=== PATIENT | female | born 1945 | race Caucasian/White ===

== ENCOUNTER → 2016-05-12 | Outpatient (CLI) | payer OTHER ==
[2016-05-12 12:32] LABS: BASO % 0.5 %; BASO ABS # 0.03 K/uL (0-0.2); COMPLETE YES; EOS % 2.7 %; HEMATOCRIT 43.2 % (37-47); IG% 0.2 %; LYMPH % 19.3 %; LYMPH ABS # 1.28 K/uL (1.2-3.4); MEAN CELL VOLUME 91.9 fL (80-100); MEAN CORPUSCULAR HEMOGLOBIN 31.9 pg (25-34); MEAN CORPUSCULAR HGB CONC 34.7 g/dl (32-36); MEAN PLATELET VOLUME 11.5 fL (7.4-10.4); MONO % 8.1 %; NEUT % 69.2 %; PLATELET COUNT 322 K/uL (130-400); WHITE BLOOD COUNT 6.63 K/uL (4.8-10.8)
[2016-05-12 12:37] LABS: ESTIMATED AVERAGE GLUCOSE 123 mg/dl; HA1C FLAG Normal (Normal)
[2016-05-12 13:33] LABS: ALT/SGPT 25 U/L (12-78); AST/SGOT 17 U/L (15-37); BLOOD UREA NITROGEN 14 mg/dl (7-18); BUN/CREATININE RATIO 20.7 (10-20); CALCIUM 8.8 mg/dl (8.5-10.1); CARBON DIOXIDE 26 mmol/L (21-32); CHLORIDE 105 mmol/L (98-107); CHOLESTEROL 245 mg/dl (0-200); CREATININE 0.67 mg/dl (0.60-1.20); GLUCOSE 95 mg/dl (70-99); POTASSIUM 3.8 mmol/L (3.5-5.1); SODIUM 139 mmol/L (136-145); TRIGLYCERIDES 155 mg/dl (0-150); VERY LOW DENSITY LIPOPROT CALC 31 mg/dl
[2016-05-12 13:35] LABS: ALKALINE PHOSPHATASE 91 U/L (45-117); HDL CHOLESTEROL 61 mg/dl; LDL CHOLESTEROL CALCULATED 153 mg/dl
== END | disposition home or self-care (01) ==
LOC: C.LABBFT 07:48
PROVIDERS: ATTEND Internal Medicine
DX: Z00.00 Encounter for general adult medical examination without abnormal findings (principal); E78.00 Pure hypercholesterolemia, unspecified; R73.01 Impaired fasting glucose; E55.9 Vitamin D deficiency, unspecified

== ENCOUNTER → 2016-05-25 | Outpatient (CLI) | payer OTHER ==
--- NOTE | 2016-05-25 17:09 | DIAGNOSTIC IMAGING REPORT ---
CT OF THE CHEST WITHOUT IV CONTRAST CLINICAL HISTORY: Solitary pulmonary nodule. Smoker. COMPARISON STUDY: 11/26/2011 CT DOSE: 185.74 mGycm TECHNIQUE: CT of the thorax was performed from the thoracic inlet to the lung bases. Images are reviewed in the axial, sagittal, and coronal planes. IV contrast was not administered for this examination. FINDINGS: Thyroid: Imaged portions of the thyroid gland are normal in appearance. Thoracic aorta: The thoracic aorta is normal in course and caliber, noting standard 3 vessel arch anatomy. Heart: The heart is enlarged. There is no pericardial effusion. There are coronary artery calcifications. Lungs and pleural spaces: There is pulmonary emphysema. There is no focal pulmonary consolidation. There is a stable solid 4 mm right lower lobe pulmonary nodule as visualized in image #[id number]. There is a new solid 4 mm left upper lobe pulmonary nodule as visualized in image #[id number].. Mediastinum: Mediastinal lymph nodes remain at the upper limits of normal in size Linette: There is no evidence of pathologic hilar adenopathy given the limitations of a noncontrast study. Axilla: There is no pathologic axillary adenopathy Upper abdomen: There is left adrenal gland thickening Skeletal structures: There are no lytic or blastic osseous lesions. IMPRESSION: 1. Pulmonary emphysema 2. Stable solid 4 mm right lower lobe pulmonary nodule. 3. New solid 4 mm left upper lobe pulmonary nodule as visualized in image #[id number]. Follow-up per Fleischner criteria is recommended Please refer to below summary of Fleischner criteria recommendations for follow-up of incidental CT nodules (Dread Ruiz, Guidelines for management of small pulmonary nodules detected on CT scans: A statement from the Fleischner Society, Radiology 237: [phone].) SOLID NODULES Solitary nodule size: <6 mm * low risk patients: no follow-up needed * high risk patients: optional CT at 12 months Solitary nodule size: 6-8 mm * low risk patients: follow-up at 6-12 months, then consider further follow-up at 18-24 months * high risk patients: initial follow-up CT at 6-12 months and then at 18-24 months if no change Solitary nodule size: >8 mm * either low or high risk patients - consider follow-up CT at 3 months, and/or CT-PET, and/or biopsy Multiple nodules size: <6 mm * low risk patients: no routine follow-up * high risk patients: optional CT at 12 months Multiple nodules size: 6-8 mm * low risk patients: follow-up at 3-6 months, then consider further follow-up at 18-24 months * high risk patients: follow-up at 3-6 months, then at 18-24 months if no change Multiple nodules size: >8 mm * low risk patients: follow-up at 3-6 months, then consider further follow-up at 18-24 months * high risk patients: follow-up at 3-6 months, then at 18-24 months if no change Note: newly detected indeterminate nodule in persons 35 years of age or older. * low risk patients: minimal or absent history of smoking and/or other known risk factors * high risk patients: history of smoking or of other known risk factors (e.g. first degree relative with lung cancer, or exposure to asbestos, radon, uranium) * if a nodule up to 8 mm is partly solid or is ground glass further follow-up is required after 24 months to exclude possible slow growing adenocarcinoma (PILI) SUBSOLID NODULES Solitary pure ground-glass nodule * nodule size <6 mm - no CT follow-up required * nodule size >=6 mm - follow-up CT at 6-12 months, then every 2 years until 5 years Solitary part-solid nodule * nodule size <6 mm - no CT follow-up required * nodule size >=6 mm - follow-up CT at 3-6 months. If unchanged, and solid component remains <6 mm, then annual follow-up for 5 years Multiple subsolid nodules * nodule size <6 mm - follow-up CT at 3-6 months, consider further follow-up at 2 and 4 years if stable * nodule size >=6 mm - follow-up CT at 3-6 months, subsequent management based on the most suspicious nodule(s) Electronically signed by: Zbigniew Thao M.D. 05/25/2016 5:08 PM Dictated Date/Time: 05/25/2016 3:17 PM
== END | disposition home or self-care (01) ==
LOC: C.CTS 14:27
PROVIDERS: ATTEND Internal Medicine
DX: R91.1 Solitary pulmonary nodule (principal); J43.9 Emphysema, unspecified

== ENCOUNTER → 2016-11-17 | Outpatient (CLI) | payer OTHER ==
[2016-11-17 12:47] LABS: ESTIMATED AVERAGE GLUCOSE 120 mg/dl; HA1C FLAG Normal (Normal)
== END | disposition home or self-care (01) ==
LOC: C.LABBFT 08:08
PROVIDERS: ATTEND Internal Medicine
DX: E55.9 Vitamin D deficiency, unspecified (principal); R73.01 Impaired fasting glucose

== ENCOUNTER → 2016-11-26 | Outpatient (CLI) | payer OTHER ==
--- NOTE | 2016-11-26 13:27 | DIAGNOSTIC IMAGING REPORT ---
R ANKLE MIN 3 VIEWS ROUTINE CLINICAL HISTORY: 71 years-old Female presenting with M25.571 Right ankle [id number]. TECHNIQUE: Frontal, mortise, and lateral views of the right ankle were obtained. COMPARISON: Correlation made to plain radiographs of the left ankle from 2016. FINDINGS: Ankle mortise intact. Osteopenia suggested. No acute fracture or malalignment. Diffuse soft tissue swelling is apparent. No significant degenerative change. IMPRESSION: Diffuse soft tissue swelling without evidence of an acute osseous injury. Electronically signed by: Salvador Beard M.D. 11/26/2016 1:25 PM Dictated Date/Time: 11/26/2016 1:18 PM
== END | disposition home or self-care (01) ==
LOC: C.RAD1850 13:03
PROVIDERS: ATTEND Internal Medicine
DX: M25.571 Pain in right ankle and joints of right foot (principal); M25.471 Effusion, right ankle

== ENCOUNTER → 2017-05-19 | Outpatient (CLI) | payer OTHER | END | disposition home or self-care (01) | LOC: C.LABBFT 08:31 | PROVIDERS: ATTEND Internal Medicine | DX: E78.00 Pure hypercholesterolemia, unspecified (principal) ==

== ENCOUNTER → 2017-06-22 | Outpatient (CLI) | payer OTHER | END | disposition home or self-care (01) | LOC: C.MAMM 08:47 | PROVIDERS: ATTEND Internal Medicine | DX: M81.0 Age-related osteoporosis without current pathological fracture (principal) ==

== ENCOUNTER → 2017-07-06 | Outpatient (CLI) | payer OTHER ==
--- NOTE | 2017-07-06 08:09 | DIAGNOSTIC IMAGING REPORT ---
(CHEST) THORAX WITHOUT CLINICAL HISTORY: R91.8 Multiple lung nodules COMPARISON STUDY: 05/25/2016 CT DOSE: TECHNIQUE: CT of the thorax was performed from the thoracic inlet to the lung bases. Images are reviewed in the axial, sagittal, and coronal planes. IV contrast was not administered for this examination. A dose lowering technique was utilized adhering to the principles of ALARA. FINDINGS: Thyroid: Imaged portions of the thyroid gland are normal in appearance. Thoracic aorta: The thoracic aorta is normal in course and caliber, noting standard 3 vessel arch anatomy. Heart: The heart is mildly enlarged. There are coronary artery calcifications present. Lungs and pleural spaces: There are no significant pleural effusions. There is moderately severe pulmonary emphysema. There is subpleural reticulation. There are multiple scattered bilateral solid pulmonary nodules. There is a new solid 7 mm pleural-based nodule within the superior segment the left lower lobe. New/increasing clustered right upper lobe and left upper lobe point nodules are likely inflammatory. Mediastinum: There is a stable precarinal lymph node the upper limits of normal in size measuring 1 cm. Linette: There is no evidence of pathologic hilar adenopathy given the limitations of a noncontrast study Axilla: There is no evidence of pathologic axillary lymphadenopathy Upper abdomen: There is stable left adrenal gland thickening, likely representing adenomatous hyperplasia Skeletal structures: There are no lytic or blastic osseous lesions. IMPRESSION: 1. New solid 7 mm pleural-based nodule within the superior segment of the left lower lobe 2. Increasing clustered upper lobe nodules, likely inflammatory 3. 6 month follow-up is recommended per Fleischner criteria. 4. Emphysema Please refer to below summary of Fleischner criteria recommendations for follow-up of incidental CT nodules (Dread Ruiz, Guidelines for management of small pulmonary nodules detected on CT scans: A statement from the Fleischner Society, Radiology 237: [phone].) SOLID NODULES Solitary nodule size: <6 mm * low risk patients: no follow-up needed * high risk patients: optional CT at 12 months Solitary nodule size: 6-8 mm * low risk patients: follow-up at 6-12 months, then consider further follow-up at 18-24 months * high risk patients: initial follow-up CT at 6-12 months and then at 18-24 months if no change Solitary nodule size: >8 mm * either low or high risk patients - consider follow-up CT at 3 months, and/or CT-PET, and/or biopsy Multiple nodules size: <6 mm * low risk patients: no routine follow-up * high risk patients: optional CT at 12 months Multiple nodules size: 6-8 mm * low risk patients: follow-up at 3-6 months, then consider further follow-up at 18-24 months * high risk patients: follow-up at 3-6 months, then at 18-24 months if no change Multiple nodules size: >8 mm * low risk patients: follow-up at 3-6 months, then consider further follow-up at 18-24 months * high risk patients: follow-up at 3-6 months, then at 18-24 months if no change Note: newly detected indeterminate nodule in persons 35 years of age or older. * low risk patients: minimal or absent history of smoking and/or other known risk factors * high risk patients: history of smoking or of other known risk factors (e.g. first degree relative with lung cancer, or exposure to asbestos, radon, uranium) * if a nodule up to 8 mm is partly solid or is ground glass further follow-up is required after 24 months to exclude possible slow growing adenocarcinoma (PILI) SUBSOLID NODULES Solitary pure ground-glass nodule * nodule size <6 mm - no CT follow-up required * nodule size >=6 mm - follow-up CT at 6-12 months, then every 2 years until 5 years Solitary part-solid nodule * nodule size <6 mm - no CT follow-up required * nodule size >=6 mm - follow-up CT at 3-6 months. If unchanged, and solid component remains <6 mm, then annual follow-up for 5 years Multiple subsolid nodules * nodule size <6 mm - follow-up CT at 3-6 months, consider further follow-up at 2 and 4 years if stable * nodule size >=6 mm - follow-up CT at 3-6 months, subsequent management based on the most suspicious nodule(s) Electronically signed by: Zbigniew Thao M.D. 07/06/2017 8:08 AM Dictated Date/Time: 07/06/2017 7:58 AM
== END | disposition home or self-care (01) ==
LOC: C.CTS 07:38
PROVIDERS: ATTEND Internal Medicine Pulmonary Disease
DX: R91.8 Other nonspecific abnormal finding of lung field (principal); J43.9 Emphysema, unspecified

== ENCOUNTER 2018-07-21 14:33 | Inpatient (IN) ==
--- NOTE | 2018-07-21 15:16 | XRay Report ---
XR chest 1V portable HISTORY: Dyspnea COMPARISON: Chest 02/25/2018. FINDINGS: Diffuse interstitial thickening with small bilateral pleural effusions and mild cardiomegal y. This is consistent with moderate pulmonary edema. Bibasilar densities favor atelectasis from the p leural effusions. No pneumothorax. IMPRESSION: Moderate pulmonary edema with small bilateral pleural effusions. Electronically signed by: Aurelio Coughlin M.D. 07/21/2018 3:14 PM
[2018-07-21] MEDS ORDERED: ALBUT/IPRATROP 3MG/0.5MG NEB 3 ML VIAL NEB STA (15:27)
[2018-07-21] MEDS ORDERED: methylPREDNISolone 125 MG/2 ML VIAL IV STA (15:27)
[2018-07-21 15:32] LABS: Basophils # (auto) 0.02 K/uL (0-0.2); Basophils % (auto) 0.2 %; Eosinophils % (auto) 1.2 %; Hematocrit (blood only) 36.1 % (37-47); Hemoglobin 12.6 g/dL (12.0-16.0); Immature Granulocytes # (auto) 0.02 K/uL (0.00-0.02); Immature Granulocytes % (auto) 0.2 %; Lymphocytes # (auto) 1.19 K/uL (1.2-3.4); Lymphocytes % (auto) 14.4 %; Mean Corpuscular Hgb Conc 34.9 g/dL (32-36); Mean Corpuscular Volume 90.3 fL (80-100); Mean Platelet Volume 10.3 fL (7.4-10.4); Monocytes # (auto) 0.64 K/uL (0.11-0.59); Monocytes % (auto) 7.7 %; Neutrophils # (auto) 6.29 K/uL (1.4-6.5); Neutrophils % (auto) 76.3 %; Platelet Count 285 K/uL (130-400); RDW Standard Deviation 49.3 fL (36.4-46.3); White Blood Count 8.26 K/uL (4.8-10.8)
[2018-07-21] MEDS ORDERED: FUROSEMIDE 40 MG/4 ML VIAL IV STA (15:34)
[2018-07-21] MEDS ORDERED: NITROGLYCERIN 2% OINTMENT 30GM TUBE EXT STA (15:34)
[2018-07-21 15:46] LABS: INR 1.1 (0.9-1.1); Partial Thromboplastin Time 25.8 Seconds (21.0-31.0); Prothrombin Time 11.1 Seconds (9.0-12.0)
[2018-07-21 15:58] LABS: Albumin Level 3.4 gm/dl (3.4-5.0); BUN Creatinine Ratio 12.8 (10-20); Est GFR (African American) 103.7; Est GFR (Non-African American) 89.5; Magnesium 2.2 mg/dl (1.8-2.4); Potassium 3.8 mmol/L (3.5-5.1)
[2018-07-21 16:14] LABS: Albumin Globulin Ratio 0.9 (0.9-2); Bilirubin,Total 0.3 mg/dl (0.2-1); Globulin 3.7 gm/dl (2.5-4.0); Total Protein 7.1 gm/dl (6.4-8.2); Troponin I 0.094 ng/ml (0-0.045)
--- NOTE | 2018-07-21 16:23 | History & Physical Report ---
Date of Service July 21, 2018 Assessment & Plan (1) Acute diastolic CHF (congestive heart failure): Telemetry. Administer intravenous Lasix. Monitor intake and output. Obtain cardiac echo Present on Admission?: Yes (2) Angina pectoris: Telemetry. Serial troponins. Cardiology consultation. Cardiac echo. Continue aspirin therapy along with topical nitrates and add metoprolol therapy Present on Admission?: Yes (3) Acute respiratory failure with hypoxia: Supplemental oxygen to maintain saturation greater than 90%. Wean off as tolerated (4) Abnormal EKG: Serial EKGs ordered. Await cardiac echo results Present on Admission?: Yes History of Present Illness Chief Complaint: Shortness of breath, chest and neck discomfort Primary Care Provider: Hang Gramajo MD 73-year-old female with no previous 3. She does smoke however. For the past day or 2 she has noticed worsening shortness of breath with exertion and orthopnea. She denies weight gain however. She noticed neck discomfort and chest discomfort at rest and with exertion. Chest x-ray consistent with CHF. Oxygen saturation 86% on room air consistent with acute hypoxic respiratory failure. She does not typically use oxygen at home. Currently she is pain-free after receiving intravenous Lasix in the ED and having topical nitrates applied. EKG reveals normal sinus rhythm with lateral T wave changes. She will be admitted for further evaluation and treatment and cardiology consultation. Allergies Allergy/AdvReac Type Severity Reaction Status Date / Time No Known Allergies Allergy Unverified 07/21/18 15:27 Home Medications Home Medications Medication Instructions Recorded Confirmed Type aspirin [Aspirin Low Dose] 81 mg PO HS 07/21/18 07/21/18 History calcium carbonate [Calcium 500] 500 mg PO QAM 07/21/18 07/21/18 History cholecalciferol (vitamin D3) 4,000 unit PO BID 07/21/18 07/21/18 History [Vitamin D3] loratadine-pseudoephedrine 1 tab PO DAILY PRN 07/21/18 07/21/18 History [Claritin-D 24 Hour] rosuvastatin 5 mg PO HS 07/21/18 07/21/18 History vitamins A,C,I-ukca-nuwoyg 1 tab PO BID 07/21/18 07/21/18 History [PreserVision AREDS] Past Med/Surg History Medical History COPD (chronic obstructive pulmonary disease) (Chronic) Abnormal EKG (Acute) Acute respiratory failure with hypoxia (Acute) Angina pectoris (Acute) Acute diastolic CHF (congestive heart failure) (Acute) Emphysema of lung Social History Preferred Language: Icelandic Feels Safe at Home: Yes Smoking Status: Current every day smoker Cigarettes Per Day: 10 Review of Systems Review of Systems: All systems reviewed & are unremarkable except as noted in HPI & below Cardiovascular: + chest pain, + chest pain at rest, + chest pain with activity, + dyspnea, + dyspnea at rest, + dyspnea on exertion and + orthopnea Physical Exam Constitutional: WD/WN, vitals as above Eyes: PERRL, conjunctivae normal, anicteric sclerae ENMT: external ear and nose normal, oropharynx normal Neck: trachea midline, no thyromegaly Respiratory: Bibasilar inspiratory rales. End expiratory wheezes. No rhonchi. No dullness to percussion Cardiovascular: Rate/Rhythm: regular rate and regular rhythm Heart Sounds: normal S1, normal S2 and + murmur Gastrointestinal (Abdomen): normal bowel sounds, soft, nontender, no hepatosplenomegaly Musculoskeletal: no cyanosis or clubbing, extremities motor strength 5/5 Minimal bilateral lower extremity pitting edema Skin: no rashes, warm and dry Neurologic: CN's II-XI intact bilaterally and moves all extremities; no focal motor deficits Results & Data Vital Signs (Past 12 Hours) Vital Signs Temp Pulse Pulse Resp BP Pulse Ox 07/21/18 15:45 95 H 26 H 93 07/21/18 14:56 96 H 93 07/21/18 14:54 86 L 07/21/18 14:38 36.7 C 104 H 20 138/81 86 L Laboratory Results 07/21/18 15:17 07/21/18 15:17
--- NOTE | 2018-07-21 16:34 | Emergency Department Note ---
Entered by Elza Lopez acting as a scribe for ED Provider Note CHIEF COMPLAINT: Shortness of breath HISTORY OF PRESENT ILLNESS: The patient is a 73 year old female who presents to the Emergency Room with complaints of constant SOB that began yesterday. She notes that sitting up helps relieve her symptoms. The patient reports that exertion worsens the symptoms. She complains of "heavy, achy pressure" in her chest, but she denies any chest pain. The patient complains of a cough and feeling bloated. Pt denies LOC, headache, fevers, chills, diaphoresis, visual changes, neck pain, breathing difficulties, nausea, vomiting, abdominal pain, back pain, melena, hematochezia, urinary symptoms, numbness, weakness, lymphadenopathy, rash, or other complaints. She notes a history of emphysema, but she denies having an at-home nebulizer. REVIEW OF SYSTEMS: See HPI for pertinent positives and negatives. A total of ten systems were reviewed and were otherwise negative. PMHx/PSHx: Emphysema SOCIAL HISTORY: Patient lives at home. PHYSICAL EXAM: GENERAL: Awake, alert, dyspneic-appearing, in no distress HENT: Normocephalic, atraumatic. Oropharynx unremarkable. EYES: PERRL. Normal conjunctiva. Sclera non-icteric. NECK: Inspection normal. Non-tender. Supple. No nuchal rigidity. FROM. No masses. RESPIRATORY: Clear to auscultation. No wheezes. No rales. Increased work of breathing. Diminished breath sounds. CARDIAC: Normal rate. Normal rhythm. No murmurs. No rubs. Extremities warm and well perfused. Pulses equal. No JVD. GI: Soft, non-distended. No tenderness to palpation. No rebound or guarding. No masses. RECTAL: Deferred. MUSCULOSKELETAL: Atraumatic. Chest examination reveals no tenderness. The back is symmetrical on inspection without obvious abnormality. There is no CVA tenderness to palpation. No joint edema. LOWER EXTREMITIES: Calves are equal size bilaterally and non-tender. No edema. No discoloration. NEURO: Normal sensorium. No sensory or motor deficits noted. SKIN: No rash or jaundice noted. EMERGENCY DEPARTMENT COURSE: 1500: Past medical records reviewed. The patient was evaluated in room A12A, and a complete history and physical examination were performed. 1534: I reevaluated the patient. 1542: I spoke with Dr. Williamson, [facility] hospitalist, about the patient's case. He will further evaluate the patient. MEDICAL DECISION MAKING: Prior records/ancillary studies reviewed. Previous ECG reviewed and she was noted to have no T wave inversions laterally as noted today. Triage Nursing notes reviewed and agree them. Additional history obtained from the family. The patient's history was concerning for shortness of breath. Differential diagnosis: Etiologies such as pneumonia, COPD, reactive airway disease, CHF, cardiac ischemia, pulmonary embolism, pneumothorax, musculoskeletal, infections, gastrointestinal, as well as others were entertained. Physical examination: As above. Increased work of breathing. ER treatment provided: Submental oxygen Cardiac monitoring IV Solu-Medrol DuoNeb On reassessment the patient felt better. IV Lasix Nitropaste Oral aspirin Diagnostic interpretation by me: The electrocardiogram was positive for ischemic change. No ST elevation. The labs revealed the patient has an unremarkable CBC. Chemistry panel was negative. Troponin elevated. BNP significant elevated concerning for CHF. Imaging studies: Chest x-ray consistent with CHF. The patient had hypoxia. She corrected with supplemental oxygen. She has an elevated troponin. She has findings consistent with CHF. She also has a history of COPD/emphysema. Consultation: A consultation was placed with the hospitalist. The case was discussed and [facility] were reviewed. The patient was evaluated in the ER for further treatment. IMPRESSION: Shortness of breath, hypoxia, EKG changes, elevated troponin PLAN: Admitted CRITICAL CARE: I have personally spent greater than 30 minutes of critical care time in the direct management of this patient. This includes bedside care, interpretation of diagnostic studies, and testing, discussion with consultants, patient, and family members, and other required patient management activities. This 30 minutes is in excess of all separately billable procedures. The scribe's documentation has been prepared under my direction and personally reviewed by me in its entirety. I confirm that the note above accurately reflects all work, treatment, procedures, and medical decision making performed by me. Impression & Plan SOB (shortness of breath), Hypoxia, Acute electrocardiogram changes, Elevated troponin Past Med/Surg History Medical History COPD (chronic obstructive pulmonary disease) (Chronic) Abnormal EKG (Acute) Acute respiratory failure with hypoxia (Acute) Angina pectoris (Acute) Acute diastolic CHF (congestive heart failure) (Acute) Emphysema of lung Social History Preferred Language: Sami Feels Safe at Home: Yes Smoking Status: Current every day smoker Cigarettes Per Day: 10 Results & Data Vital Signs Vital Signs - 24 hr 07/21/18 14:38 07/21/18 14:54 07/21/18 14:56 Temperature 36.7 C Temperature Source Oral Sepsis Recent Fever Within 48 Hours No Sepsis New/Unexplained Change in Mental Status No Sepsis Action Taken by Nursing No Action Required Pulse Rate 104 H 96 H Pulse Rate [Left Finger] Respiratory Rate 20 Respiratory Effort / Characteristics Non-Labored Non-Labored Respiratory Depth Normal Normal Respiratory Pattern Regular Regular Blood Pressure 138/81 Blood Pressure Mean 100 Blood Pressure Position Sitting Pulse Oximetry 86 L 86 L 93 Oxygen Delivery Method Room Air Room Air Nasal Cannula Oxygen Flow Rate 4 07/21/18 15:45 Temperature Temperature Source Sepsis Recent Fever Within 48 Hours Sepsis New/Unexplained Change in Mental Status Sepsis Action Taken by Nursing Pulse Rate Pulse Rate [Left Finger] 95 H Respiratory Rate 26 H Respiratory Effort / Characteristics Non-Labored Respiratory Depth Respiratory Pattern Blood Pressure Blood Pressure Mean Blood Pressure Position Pulse Oximetry 93 Oxygen Delivery Method Nasal Cannula Oxygen Flow Rate 4 Home Medications Current Medication List: was personally reviewed by me Laboratory Data Attestation: I reviewed the patient's lab results. Result diagrams: 07/21/18 15:17 07/21/18 15:17 Lab Results 07/21/18 07/21/18 07/21/18 Range/Units 15:17 15:17 15:17 WBC 8.26 (4.8-10.8) K/uL RBC 4.00 L (4.2-5.4) M/uL Hgb 12.6 (12.0-16.0) g/dL Hct 36.1 L (37-47) % MCV 90.3 (80-100) fL MCH 31.5 (25-34) pg MCHC 34.9 (32-36) g/dL RDW Std Deviation 49.3 H (36.4-46.3) fL RDW Coeff of Ani 15.0 H (11.5-14.5) % Plt Count 285 (130-400) K/uL MPV 10.3 (7.4-10.4) fL Immature Gran % (Auto) 0.2 % Neut % (Auto) 76.3 % Lymph % (Auto) 14.4 % Whitfield % (Auto) 7.7 % Eos % (Auto) 1.2 % Baso % (Auto) 0.2 % Immature Gran # (Auto) 0.02 (0.00-0.02) K/uL Neut # (Auto) 6.29 (1.4-6.5) K/uL Lymph # (Auto) 1.19 L (1.2-3.4) K/uL Whitfield # (Auto) 0.64 H (0.11-0.59) K/uL Eos # (Auto) 0.10 (0-0.5) K/uL Baso # (Auto) 0.02 (0-0.2) K/uL PT 11.1 (9.0-12.0) Seconds INR 1.1 (0.9-1.1) APTT 25.8 (21.0-31.0) Seconds PTT Ratio 1.0 Sodium 137 (136-145) mmol/L Potassium 3.8 (3.5-5.1) mmol/L Chloride 105 (98-107) mmol/L Carbon Dioxide 24 (21-32) mmol/L Anion Gap 8.0 (3-11) BUN 8 (7-18) mg/dl Creatinine 0.62 (0.6-1.2) mg/dl Est Cr Clr Drug Dosing 71.0 ml/min Est GFR ( Amer) 103.7 Est GFR (Non-Af Amer) 89.5 BUN/Creatinine Ratio 12.8 (10-20) Glucose 105 H (70-99) mg/dl Calcium 9.0 (8.5-10.1) mg/dl Magnesium 2.2 (1.8-2.4) mg/dl Total Bilirubin 0.3 (0.2-1) mg/dl AST 42 H (15-37) U/L ALT 68 (12-78) U/L Alkaline Phosphatase 102 (45-117) U/L Troponin I 0.094 H* (0-0.045) ng/ml NT-Pro-B Natriuret Pep 31863 H (0-900) pg/ml Total Protein 7.1 (6.4-8.2) gm/dl Albumin 3.4 (3.4-5.0) gm/dl Globulin 3.7 (2.5-4.0) gm/dl Albumin/Globulin Ratio 0.9 (0.9-2) Administered Medications Discontinued Medications Albuterol (Duoneb) 3 ml NEB NOW STA Stop: 07/21/18 15:28 Last Admin: 07/21/18 15:44 Dose: 3 ml Documented by: [id number] Furosemide (Lasix) 20 mg IV NOW STA Stop: 07/21/18 15:35 Last Admin: 07/21/18 15:39 Dose: 20 mg Documented by: [id number] Methylprednisolone (Solumedrol) 125 mg IV NOW STA Stop: 07/21/18 15:28 Last Admin: 07/21/18 15:32 Dose: 125 mg Documented by: [id number] Nitroglycerin (Nitro-Bid 2%) 0.5 inch EXT NOW STA Stop: 07/21/18 15:35 Last Admin: 07/21/18 15:39 Dose: 0.5 inch Documented by: [id number] Imaging Data Radiologist's Impression: Radiology results as stated below per my review and the radiologist's interpretation: XR chest 1V portable HISTORY: Dyspnea COMPARISON: Chest 02/25/2018. FINDINGS: Diffuse interstitial thickening with small bilateral pleural effusions and mild cardiomegaly. This is consistent with moderate pulmonary edema. Bibasilar densities favor atelectasis from the pleural effusions. No pneumothorax. IMPRESSION: Moderate pulmonary edema with small bilateral pleural effusions. Electronically signed by: Aurelio Coughlin M.D. 07/21/2018 3:14 PM ECG Data Attestation: I personally reviewed and interpreted this ECG as follows: Indication: SOB/dyspnea Rate (beats per minute): 103 Rhythm: sinus tachycardia Findings: + other (left atrial enlargement) and + T-wave inversion (Lateral); no PVC and no ST elevation Comparison ECG Date: from (11/26/2011) Change: the following changes noted (lateral changes are new ) Blood Pressure Blood Pressure Findings: Normal blood pressure Blood Pressure Disposition: did not require urgent referral Discharge Plan Visit Data Chief Complaint: Shortness of Breath/Dyspnea Stated Complaint: SOB ED Provider: Nadir Causey Discharge Problem: SOB (shortness of breath), Hypoxia, Acute electrocardiogram changes, Elevated troponin Patient Disposition: Being Evaluated by Hospitalist Forms Stand Alone Forms: My [facility] [employer] Prescriptions Prescriptions: No Action aspirin [Aspirin Low Dose] 81 mg Tablet,Delayed Release (Dr/Ec) 81 mg PO HS RF: 0 loratadine-pseudoephedrine [Claritin-D 24 Hour] 10-240 mg Tablet Extended Release 24 Hr 1 tab PO DAILY PRN (Reason: Allergy Symptoms) RF: 0 calcium carbonate [Calcium 500] 500 mg calcium (1,250 mg) Tablet 500 mg PO QAM RF: 0 rosuvastatin 5 mg tablet 5 mg PO HS RF: 0 cholecalciferol (vitamin D3) [Vitamin D3] 2,000 unit Tablet 4,000 unit PO BID RF: 0 PreserVision AREDS [id number] [id number] Tablet 1 tab PO BID RF: 0 Referrals Referrals: Tae Gramajo MD [Primary Care Provider] - The scribe's documentation has been prepared under my direction and personally reviewed by me in its entirety. I confirm that the note above accurately reflects all work, treatment, procedures, and medical decision making performed by me.
[2018-07-21] MEDS ORDERED: ACETAMINOPHEN 325 MG TAB PO PRN (17:16)
[2018-07-21] MEDS ORDERED: ONDANSETRON INJ 2 MG/ML 2 ML VIAL IV PRN (17:16)
[2018-07-21] MEDS ORDERED: ALUMINUM/MAGNESIUM SUSP 30 ML UDC PO PRN (17:16)
[2018-07-21] MEDS ORDERED: NITROGLYCERIN SL 0.4 MG/TAB TAB SL PRN (17:16)
[2018-07-21] MEDS ORDERED: METOPROLOL SUCC 50MG EXT REL TAB PO ONE (18:00)
[2018-07-21] MEDS: FUROSEMIDE 40 MG in SYRINGE 0 ML IV SCH (18:40)
[2018-07-21] MEDS: NITROGLYCERIN 2% OINTMENT 30GM TUBE EXT SCH (18:49)
[2018-07-21] MEDS: ASPIRIN 81 MG ECTAB PO SCH (19:55)
[2018-07-21] MEDS: POTASSIUM CHLORIDE 10 MEQ TABCR PO SCH (19:55)
[2018-07-21] MEDS: CHOLECALCIFEROL 1,000 UNITS TAB PO SCH (19:57)
[2018-07-21] MEDS: ENOXAPARIN INJ 40 MG/0.4 ML SYR SQ SCH (19:57)
[2018-07-21] MEDS: ROSUVASTATIN CALCIUM 5 MG TAB PO SCH (19:58)
[2018-07-21] MEDS: CEROVITE ADV FORMULA TAB PO SCH (19:58)
[2018-07-21 21:30] LABS: Appearance Urine Clear (Clear); Bilirubin Urine Negative (Negative); Blood Urine Negative (Negative); Color Urine Yellow; Glucose Urine UA Negative (Negative); Ketones Urine Negative (Negative); Leukocyte Esterase Urine Negative (Negative); Nitrite Urine Negative (Negative); Protein Urine Negative (Negative); Specific Gravity Urine 1.008 (1.000-1.030); Urobilinogen Urine Negative (Negative)
[2018-07-22] MEDS: NITROGLYCERIN 2% OINTMENT 30GM TUBE EXT SCH ×3 (00:56→12:00)
[2018-07-22] MEDS: FUROSEMIDE 40 MG in SYRINGE 0 ML IV SCH ×2 (06:11→18:11)
[2018-07-22] MEDS: CALCIUM CARBONATE 1250MG TAB PO SCH (07:26)
[2018-07-22] MEDS: CEROVITE ADV FORMULA TAB PO SCH ×2 (07:27→20:08)
[2018-07-22] MEDS: POTASSIUM CHLORIDE 10 MEQ TABCR PO SCH ×2 (07:27→20:07)
[2018-07-22] MEDS: CHOLECALCIFEROL 1,000 UNITS TAB PO SCH ×2 (07:28→20:08)
--- NOTE | 2018-07-22 08:03 | Hospitalist Progress Note ---
Date of Service July 22, 2018 Assessment & Plan (1) Acute diastolic CHF (congestive heart failure): good urine output and weight reduction after intravenous Lasix. reduced systolic function on echo, heart rate slower but lateral T wave inversions, did have some pause, and makes consideration of B robert at increased risk (2) Angina pectoris: Serial troponins are only very mildly elevated, Cardiology consultation. recommends left heart cath for risk stratification, aspirin,therapy, heart rate slower will consider just using Harsh i (3) Acute respiratory failure with hypoxia: secondary to pulmonary edema from HFrEF, Supplemental oxygen to maintain saturation greater than 90%. (4) Abnormal EKG: Serial EKGs ordered. Await cardiac echo results Subjective Patient is in no further chest pain although she is story of exertional shortness of breath. She was given the results of echocardiogram showing reduced systolic function by Dr. Grossman with recommendations for cardiac catheterization however the patient is not sure she wants proceed with this. She is agreement to stay in the hospital for an additional day for diuresis. She did have a pause in the evening on her monitor and this is making us be slightly concerned of initiating beta-robert therapy at the least she will be on afterload reduction of some kind Review of Systems Review of Systems: ROS: well nourished well developed. Since being in the hospital she has had No double vision blurry vision No problems with speech or swallowing No palpitations, chest pain or pressure No Wheezing or breathing issues, except for minor dyspnea on exertion No abdominal pain nausea vomiting diarrhea changes in appetite or weight No burning urine urine frequency or changes in color No focal joint pain or muscle pain No skin rashes or oral lesions No unusual bruising or bleeding No focused back pain or numbness or loss of strength No changes in memory or confusion Physical Exam Physical Exam: The patient appeared well nourished and normally developed. Vital signs as documented. Head exam is unremarkable. normocephalic, atraumatic Neck is without jugular venous distension, thyromegaly, or lymphademopathy Lungs are diminished at the bases with rales and dullness consistent with her bibasilar pleural effusions Cardiac exam reveals Rhythm is regular. First and second heart sounds normal. Abdominal exam reveals normal bowel sounds, no masses, no organomegaly Extremities are nonedematous and both pedal pulses are present Neurologic exam is A&Ox3, no focal deficits, strength is equal bilateral Psychologically seems neither anxious or depressed Skin is warm Dry without bruises or lesions Results & Data Vital Signs (Past 12 Hours) Vital Signs Temp Pulse Pulse Resp BP Pulse Ox 07/22/18 07:53 36.5 C 68 18 111/62 94 07/22/18 06:10 118/66 07/22/18 04:19 36.6 C 60 19 98/52 L 90 07/21/18 23:35 70 07/21/18 23:16 36.7 C 72 18 120/61 93
--- NOTE | 2018-07-22 09:36 | Cardiology Consultation ---
Date of Consultation July 22, 2018 Assessment & Plan (1) Acute systolic CHF (congestive heart failure): Patient presented with worsening shortness of breath, orthopnea, and abdominal bloating over the previous 2 days. CXR shows moderate pulmonary edema with small bilateral pleural effusions. Pro-BNP is elevated >10,000. Echocardiogram preliminarily shows dilated LV with reduced LV systolic function. She is being diuresed with IV Lasix with good urine output thus far and improvement in her breathing. She continues to appear hypervolemic on examination and would therefore recommend continued diuresis with IV Lasix 40 mg BID. Monitor I's&O's closely as well as daily weights. Monitor PRP closely as well. Would recommend discharging her on PO Lasix daily once euvolemic. The importance of following a low sodium diet, <2,000 mg daily, was reviewed with patient today. The importance of daily weights was also reviewed. (2) Cardiomyopathy: The etiology of her LV dysfunction is unclear. She has been noting exertional chest discomfort and shortness of breath over the last several weeks. Troponin has also been mildly elevated. ECG shows some ST-T wave abnormality, which could be ischemic changes vs. changes due to LVH. Given her symptoms, trop onin elevation, and possible ischemic changes on ECG, further evaluation with a cardiac catheterization is recommended. Discussed keeping her over the weekend and performing the cath on Wednesday, however, patient does not feel as though she wants to be admitted all weekend. The study can therefore be arranged next week as an outpatient if she ends up being discharged sooner than Wednesday. Recommend adding an NKECHI inhibitor to her medication regimen given her LV dysfunction. Would also advocate for adding a beta robert, but given her pause overnight, will hold off on beta robert therapy at this time. (3) Elevated troponin: Troponin has been mildly elevated. Recommend none-urgent cardiac catheterization given her reduced LV systolic function and exertional chest pain/shortness of breath symptoms. (4) Mitral regurgitation: Echo preliminarily shows moderate MR. She was hypervolemic at the time of the study and would recommend reevaluation with repeat echo in the future once euvolemic. (5) Bradycardia: She was noted to have a 4 second pause overnight around midnight. Recommend continuing to monitor on telemetry. Will also hold off on initiating beta robert therapy at this time given the pause. Patient seen and discussed with Dr. Grossman, and the plan was made in collaboration with him. History of Present Illness Reason for Consultation: New onset CHF, angina pectoris Requesting Physician: Dr. Williamson History of Present Illness Mrs. Moses is a 73-year-old female with a history of dyslipidemia, prediabetes, tobacco abuse, and COPD who presented to the ED yesterday with complaints of worsening shortness of breath. The patient states that in March, she was diagnosed and treated for the flu. She has noted a persistent cough since that time which is productive of white sputum. She has also noted some exertional shortness of breath, which worsened on Wednesday. She noted the shortness of breath particularly when using her upper body and with walking longer distances. On Wednesday evening, she noted orthopnea lying down and had to prop herself up to sleep. She has not noted any lower extremity edema, but did note some abdominal bloating. She reports a gradual weight gain over the last several months. She denies any excessive sodium intake in her diet. Patient also reports that since March, she has noted an aching/pressure in her chest in association with exertion. The discomfort also occurs when using her upper body as well as when walking up hill and is associated with shortness of breath. She can note an associated tightness in her neck region and on 1-2 occasions she also had an aching discomfort in her left arm. The discomfort usually resolves within 10-15 minutes of rest. She has been taking baby aspirin as needed for the discomfort as well. She states that she can feel her heart racing in association with shortness of breath, but she denies palpitations otherwise. She denies lightheadedness, syncope, or presyncope. She denies abnormal bleeding such as melena, hematochezia, or hematuria. She denies cerebrovascular symptoms. As noted in HPI. All other ROS are reviewed and otherwise negative at this time. Past medical history: 1. Prediabetes 2. Dyslipidemia 3. COPD 4. Pulmonary nodules 5. Osteoporosis 6. Vitamin D deficiency 7. GERD 8. Hysterectomy and bilateral salpingo-oophorectomy Family history: No known premature CAD. She states that she did not know her father. Social history: She is with 3 children and numerous grandchildren. She has been smoking since the age of 11 at up to 1 ppd. She currently smokes about 10 cigarettes daily. She notes occasional alcohol use. Allergies Allergy/AdvReac Type Severity Reaction Status Date / Time No Known Allergies Allergy Unverified 07/21/18 15:27 Home Medications Home Medications Medication Instructions Recorded Confirmed Type aspirin [Aspirin Low Dose] 81 mg PO HS 07/21/18 07/21/18 History calcium carbonate [Calcium 500] 500 mg PO QAM 07/21/18 07/21/18 History cholecalciferol (vitamin D3) 4,000 unit PO BID 07/21/18 07/21/18 History [Vitamin D3] loratadine-pseudoephedrine 1 tab PO DAILY PRN 07/21/18 07/21/18 History [Claritin-D 24 Hour] rosuvastatin 5 mg PO HS 07/21/18 07/21/18 History vitamins A,C,B-[id number]-[id number] 1 tab PO BID 07/21/18 07/21/18 History [PreserVision AREDS] Patient History Medical History COPD (chronic obstructive pulmonary disease) (Chronic) Abnormal EKG (Acute) Acute respiratory failure with hypoxia (Acute) Angina pectoris (Acute) Acute diastolic CHF (congestive heart failure) (Acute) Emphysema of lung Social History Preferred Language: Uzbek Communication Ability: Effective Beliefs That Will Affect Care: None Current Living Situation: Spouse Other Information That Helps Us Care for You: No Feels Safe at Home: Yes Safety Concerns: Feels Safe At This Time Smoking Status: Current every day smoker Tobacco Type: cigarettes Cigarettes Per Day: 10 Do You Dip or Chew Tobacco: No Second Hand Exposure: No Tobacco Cessation Education Requested by Patient: No Hx Alcohol Use: Yes Alcohol type: beer Hx Substance Use: No Physical Exam Physical Exam: Constitutional: Alert, oriented, in no acute distress HEENT: Head is atraumatic and normocephalic. EOMs intact. Sclera anicteric. Face is symmetric. No perioral cyanosis. Mucous membranes moist. Neck: Supple, mildly elevated JVP just above the clavicle at 90 degrees Pulmonary: Normal respiratory effort, decreased breath sounds throughout with some faint crackles in the bases Cardiac: Regular rate and rhythm, normal S1 and S2, no gallops, no rubs, no obvious murmurs Extremities: No clubbing, cyanosis, or edema. Pulses intact Abdomen: Normal bowel sounds, soft, non-tender, no abdominal mass palpated Skin: Normal skin color, turgor, and pigmentation, no rash, no skin lesions Neurological: Oriented to person, place, and time Results & Data Vital Signs (Past 12 Hours) Vital Signs Temp Pulse Pulse Resp BP Pulse Ox Pulse Ox 07/22/18 08:17 66 07/22/18 08:11 94 07/22/18 07:53 36.5 C 68 18 111/62 94 07/22/18 06:10 118/66 07/22/18 04:19 36.6 C 60 19 98/52 L 90 07/21/18 23:35 70 07/21/18 23:16 36.7 C 72 18 120/61 93 Laboratory Results Laboratory Results WBC 8.26 K/uL (4.8-10.8) 07/21/18 15:17 RBC 4.00 M/uL (4.2-5.4) L 07/21/18 15:17 Hgb 12.6 g/dL (12.0-16.0) 07/21/18 15:17 Hct 36.1 % (37-47) L 07/21/18 15:17 MCV 90.3 fL (80-100) 07/21/18 15:17 MCH 31.5 pg (25-34) 07/21/18 15:17 MCHC 34.9 g/dL (32-36) 07/21/18 15:17 RDW Std Deviation 49.3 fL (36.4-46.3) H 07/21/18 15:17 RDW Coeff of Ani 15.0 % (11.5-14.5) H 07/21/18 15:17 Plt Count 285 K/uL (130-400) 07/21/18 15:17 MPV 10.3 fL (7.4-10.4) 07/21/18 15:17 Immature Gran % (Auto) 0.2 % 07/21/18 15:17 Neut % (Auto) 76.3 % 07/21/18 15:17 Lymph % (Auto) 14.4 % 07/21/18 15:17 Parker % (Auto) 7.7 % 07/21/18 15:17 Eos % (Auto) 1.2 % 07/21/18 15:17 Baso % (Auto) 0.2 % 07/21/18 15:17 Immature Gran # (Auto) 0.02 K/uL (0.00-0.02) 07/21/18 15:17 Neut # (Auto) 6.29 K/uL (1.4-6.5) 07/21/18 15:17 Lymph # (Auto) 1.19 K/uL (1.2-3.4) L 07/21/18 15:17 Parker # (Auto) 0.64 K/uL (0.11-0.59) H 07/21/18 15:17 Eos # (Auto) 0.10 K/uL (0-0.5) 07/21/18 15:17 Baso # (Auto) 0.02 K/uL (0-0.2) 07/21/18 15:17 PT 11.1 Seconds (9.0-12.0) 07/21/18 15:17 INR 1.1 (0.9-1.1) 07/21/18 15:17 APTT 25.8 Seconds (21.0-31.0) 07/21/18 15:17 PTT Ratio 1.0 07/21/18 15:17 Sodium 137 mmol/L (136-145) 07/21/18 15:17 Potassium 3.8 mmol/L (3.5-5.1) 07/21/18 15:17 Chloride 105 mmol/L (98-107) 07/21/18 15:17 Carbon Dioxide 24 mmol/L (21-32) 07/21/18 15:17 8.0 (3-11) 07/21/18 15:17 BUN 8 mg/dl (7-18) 07/21/18 15:17 0.62 mg/dl (0.6-1.2) 07/21/18 15:17 Est Cr Clr Drug Dosing 71.0 ml/min 07/21/18 15:17 Est GFR ( Amer) 103.7 07/21/18 15:17 Est GFR (Non-Af Amer) 89.5 07/21/18 15:17 12.8 (10-20) 07/21/18 15:17 Glucose 105 mg/dl (70-99) H 07/21/18 15:17 Calcium 9.0 mg/dl (8.5-10.1) 07/21/18 15:17 Magnesium 2.2 mg/dl (1.8-2.4) 07/21/18 15:17 0.3 mg/dl (0.2-1) 07/21/18 15:17 AST 42 U/L (15-37) H 07/21/18 15:17 ALT 68 U/L (12-78) 07/21/18 15:17 102 U/L (45-117) 07/21/18 15:17 0.070 ng/ml (0-0.045) H* 07/22/18 04:10 NT-Pro-B Natriuret Pep 00643 pg/ml (0-900) H 07/21/18 15:17 7.1 gm/dl (6.4-8.2) 07/21/18 15:17 3.4 gm/dl (3.4-5.0) 07/21/18 15:17 3.7 gm/dl (2.5-4.0) 07/21/18 15:17 0.9 (0.9-2) 07/21/18 15:17 Yellow 07/21/18 20:51 Clear (Clear) 07/21/18 20:51 7.0 (4.5-7.5) 07/21/18 20:51 Ur Specific [place] 1.008 (1.000-1.030) 07/21/18 20:51 Negative (Negative) 07/21/18 20:51 Negative (Negative) 07/21/18 20:51 Negative (Negative) 07/21/18 20:51 Negative (Negative) 07/21/18 20:51 Negative (Negative) 07/21/18 20:51 Negative (Negative) 07/21/18 20:51 Negative (Negative) 07/21/18 20:51 Ur Leukocyte Esterase Negative (Negative) 07/21/18 20:51 Diagnostic Findings CXR: Moderate pulmonary edema with small bilateral pleural effusions. ECG 07/21/18: Sinus tachycardia at 103 bpm. Possible left atrial enlargement. T wave abnormality in lateral leads. ECG 07/21/18: Sinus bradycardia at [address]-T wave abnormality, more pronounced from previous eCG. Telemetry: Sinus rhythm. She did have about a 4 second pause around midnight. Echo: Preliminarily shows dilated LV with reduced systolic function, EF about 30%. Moderate MR.
[2018-07-22] MEDS: ROSUVASTATIN CALCIUM 5 MG TAB PO SCH (20:07)
[2018-07-22] MEDS: ASPIRIN 81 MG ECTAB PO SCH (20:07)
[2018-07-22] MEDS: ENOXAPARIN INJ 40 MG/0.4 ML SYR SQ SCH (20:08)
[2018-07-23] MEDS: FUROSEMIDE 40 MG in SYRINGE 0 ML IV SCH (06:10)
[2018-07-23] MEDS: CEROVITE ADV FORMULA TAB PO SCH (07:25)
[2018-07-23] MEDS: CHOLECALCIFEROL 1,000 UNITS TAB PO SCH (07:25)
[2018-07-23] MEDS: POTASSIUM CHLORIDE 10 MEQ TABCR PO SCH (07:26)
[2018-07-23] MEDS: CALCIUM CARBONATE 1250MG TAB PO SCH (07:26)
[2018-07-23 09:39] LABS: BUN Creatinine Ratio 19.2 (10-20); Calcium 10.3 mg/dl (8.5-10.1); Est GFR (African American) 56.4; Est GFR (Non-African American) 48.7; Magnesium 2.2 mg/dl (1.8-2.4); Potassium 3.5 mmol/L (3.5-5.1)
--- NOTE | 2018-07-23 16:42 | Discharge Summary ---
Date of Service July 23, 2018 Admission HPI Per Admitting Provider 73-year-old female with no previous 3. She does smoke however. For the past day or 2 she has noticed worsening shortness of breath with exertion and orthopnea. She denies weight gain however. She noticed neck discomfort and chest discomfort at rest and with exertion. Chest x-ray consistent with CHF. Oxygen saturation 86% on room air consistent with acute hypoxic respiratory failure. She does not typically use oxygen at home. Currently she is pain-free after receiving intravenous Lasix in the ED and having topical nitrates applied. EKG reveals normal sinus rhythm with lateral T wave changes. She will be a dmitted for further evaluation and treatment and cardiology consultation. Principal Diagnosis Acute systolic heart failure, HFrEF Discharge Exam The patient appeared well nourished and normally developed. Vital signs as documented. Head exam is unremarkable. normocephalic, atraumatic Neck is without jugular venous distension, thyromegaly, or lymphademopathy Lungs are clear to auscultation Cardiac exam reveals Rhythm is regular. Abdominal exam reveals normal bowel sounds, no masses, no organomegaly Extremities are nonedematous and both pedal pulses are present Neurologic exam is A&Ox3, no focal deficits, strength is equal bilateral Psychologically seems anxious Skin is warm / Dry Discharge Data Allergies Allergy/AdvReac Type Severity Reaction Status Date / Time No Known Allergies Allergy Unverified 07/21/18 15:27 Consultations 07/21/18 15:44 ED Decision to Admit Stat 07/21/18 17:16 Consult Cardiology Routine Hospital Course (1) Angina pectoris: Serial troponins are only very mildly elevated, Cardiology consultation. recommends left heart cath for risk stratification, aspirin,therapy, heart rate slower will consider just using Harsh i. Patient and her were very unhappy that the heart catheterization could not be accomplished earlier than next week. The patient seemed unrealistic about her expectations and demanded to go home on 07/23. I was very clear to her that she could end up with a mortal injury to her heart or a severe debilitation if she would have significant heart attack and we are not clear what the etiology of her depressed ejection fraction is. Patient says that she would accept this risk is she will stay in the hospital be worse for her mental state. Because the patient had a significant diuresis of 3000- ins and out, and a mild elevation of the BUN but not creatinine I chose not to give her daily diuretic but to give her initiating lisinopril therapy. I will have my nurse navigator contact her on Wednesday to try to schedule her for an outpatient heart catheterization or at least a visit to the office. The patient did have significant changes on exam to her lungs with the left base and she does have some tobacco exposure in her life I did discharge her on levofloxacin for possible pneumonia. We did a 2 step prior to discharge she did not require oxygen (2) Acute respiratory failure with hypoxia: secondary to pulmonary edema from HFrEF, she did not require supplemental oxygen (3) Abnormal EKG: Echo with EF of 30-35% Total Time Total Time Spent Total Time Spent (In Minutes): greater than 30 minutes were required to prepare discharge Discharge Plan Discharge Items Patient Disposition: Home - Self-Care Reason For Visit: CONGESTIVE HEART FAILURE Discharge Diagnosis: heart failure, fluid on lungs, possible unstable angina pneumonia Discharge Goals: Decrease discomfort and Diagnostic testing Activity: Resume your previous activity Non-emergency contact: Primary Care Provider and Motion Picture Narrator Call non-emergency contact if: you have any medication questions Follow-up/Referrals: Tae Gramajo MD [Primary Care Provider] - Diet: Low Sodium (2gm) Addtl Provider Instructions: please return if you are more short of breath or have chest pain understand that the recommendation of Dr Mishra and Dr Grossman is to stay in the hospital for possible heart cath early this coming week and by leaving the hospital you place yourself at risk for further heart damage that may not be able to be improved or even a catastrophic problem or You did not qualify for home oxygen as your oxygen level did not fall when tested, if you feel short of breath please report to the ER as your situation may change unpredictably due to the unknown nature of your heart disease. Prescriptions: New nitroglycerin [Nitrostat] 0.4 mg Tablet, Sublingual 0.4 mg sublingual UD PRN (Reason: chest pain) Qty: 1 RF: 0 lisinopril 2.5 mg tablet 2.5 mg PO DAILY Qty: 30 RF: 0 levofloxacin [Levaquin] 750 mg tablet 750 mg PO DAILY 7 Days Qty: 7 RF: 0 Continued calcium carbonate [Calcium 500] 500 mg calcium (1,250 mg) Tablet 500 mg PO QAM RF: 0 rosuvastatin 5 mg tablet 5 mg PO HS RF: 0 cholecalciferol (vitamin D3) [Vitamin D3] 2,000 unit Tablet 4,000 unit PO BID RF: 0 PreserVision AREDS [id number],160-113-100 [id number] Tablet 1 tab PO BID RF: 0 Changed aspirin [Aspirin Low Dose] 81 mg Tablet,Delayed Release (Dr/Ec) 325 mg PO HS Qty: 0 RF: 0 Discontinued loratadine-pseudoephedrine [Claritin-D 24 Hour] 10-240 mg Tablet Extended Release 24 Hr 1 tab PO DAILY PRN (Reason: Allergy Symptoms) RF: 0 Stand-Alone Forms: [facility] Discharge Orders: Discharge Order (Routine); Ordered 07/23/18 Ordered By: Arcadio Mishra Admission Data Admit Date/Time: 07/21/18 16:16 Attending Provider: Arcadio Mishra Admit Provider: Isak Williamson Primary Care Provider: Tae Gramajo Other Providers: Isak Williamson ; Michael Garcia ; Calixto Coy ; Hector Grossman ; Woo Giron ; Abhi Rodriguez Jr ; Armond Reveles ; Mulu Rodriguez ; Mary Vallejo ; Tea Duran ; Tae Gann ; Ko Salazar ; Isak Forrester ; Inna Berger ; Berenice Sheets Service: Telemetry Other Interventions: Discharge Summary Assessment (RN) Last Done: 07/23/18 10:45 DC Date/Time DO NOT enter until pt leaves facility: 07/23/18 11:13
--- NOTE | 2018-07-27 09:09 | Coding Query ---
CONGESTIVE HEART FAILURE To Promote full compliance with coding requirements relating to patient care, physician participation is requested in all cases of revenue collector uncertainty. Please assist us with the following questions. A diagnosis of Congestive Heart Failure is documented in the patient's medical record. The beginning of the record states Acute Diastolic CFH but the Cardiology Consult and Discharge Summary state Acute Systoltic CHF To accurately code this diagnosis and to compare patient severity, we ask that you Clarify the type of heart failure by placing an X within the parenthesis (x). SYSTOLIC HEART FAILURE ( xx) Acute ( ) Chronic ( ) Acute on Chronic ( ) Rheumatic ( ) Unknown DIASTOLIC HEART FAILURE ( ) Acute ( ) Chronic ( ) Acute on Chronic ( ) Rheumatic ( ) Unknown COMBINED SYSTOLIC AND DIASTOLIC HEART FAILURE ( ) Acute ( ) Chronic ( ) Acute on Chronic ( ) Rheumatic ( ) Unknown Was the CHF Present On Admission? Please check the appropriate box: ( xx) Present on Admission ( ) Not Present On Admission ( ) Clinically undetermined Thank you Supriya CRISTOBAL
== END 2018-07-23 11:13 | disposition home or self-care (01) | DRG 291 ==
LOC: ED 14:33 → SUATTDRO 16:16 → 2S 16:16
DX: M81.0 Age-related osteoporosis without current pathological fracture; E56.9 Vitamin deficiency, unspecified; K21.9 Gastro-esophageal reflux disease without esophagitis; E78.5 Hyperlipidemia, unspecified; I34.0 Nonrheumatic mitral (valve) insufficiency; R91.1 Solitary pulmonary nodule; J43.9 Emphysema, unspecified; R94.31 Abnormal electrocardiogram [ECG] [EKG]; I50.21 Acute systolic (congestive) heart failure; R00.1 Bradycardia, unspecified; R73.03 Prediabetes; Z79.82 Long term (current) use of aspirin; I20.9 Angina pectoris, unspecified; J96.01 Acute respiratory failure with hypoxia; J18.9 Pneumonia, unspecified organism

== ENCOUNTER 2019-06-30 05:22 | Inpatient (IN) ==
[2019-06-30] MEDS ORDERED: SODIUM CHLORIDE 0.9% 1000ML 1,000 ML IV SCH ×2 (05:45→09:39)
[2019-06-30 06:17] LABS: Basophils # (auto) 0.03 K/uL (0-0.2); Basophils % (auto) 0.4 %; Eosinophils # (auto) 0.33 K/uL (0-0.5); Eosinophils % (auto) 4.6 %; Hematocrit (blood only) 38.2 % (37-47); Hemoglobin 13.1 g/dL (12.0-16.0); Immature Granulocytes # (auto) 0.01 K/uL (0.00-0.02); Immature Granulocytes % (auto) 0.1 %; Lymphocytes # (auto) 1.39 K/uL (1.2-3.4); Lymphocytes % (auto) 19.4 %; Mean Corpuscular Hemoglobin 31.3 pg (25-34); Mean Corpuscular Hgb Conc 34.3 g/dL (32-36); Mean Corpuscular Volume 91.2 fL (80-100); Mean Platelet Volume 10.3 fL (7.4-10.4); Monocytes # (auto) 0.51 K/uL (0.11-0.59); Monocytes % (auto) 7.1 %; Neutrophils # (auto) 4.91 K/uL (1.4-6.5); Neutrophils % (auto) 68.4 %; Platelet Count 295 K/uL (130-400); RDW Coefficient of Variation 14.4 % (11.5-14.5); RDW Standard Deviation 48.1 fL (36.4-46.3); Red Blood Count 4.19 M/uL (4.2-5.4); White Blood Count 7.18 K/uL (4.8-10.8)
[2019-06-30 06:35] LABS: Albumin Level 3.5 gm/dl (3.4-5.0); BUN Creatinine Ratio 15.7 (10-20); Calcium 8.6 mg/dl (8.5-10.1); Est GFR (African American) 84.2; Est GFR (Non-African American) 72.6; Potassium 3.8 mmol/L (3.5-5.1)
[2019-06-30 06:37] LABS: Partial Thromboplastin Time 26.9 Seconds (21.0-31.0); Prothrombin Time 10.6 Seconds (9.0-12.0)
[2019-06-30 06:38] LABS: Albumin Globulin Ratio 0.9 (0.9-2); Bilirubin,Total 0.3 mg/dl (0.2-1); Total Protein 7.5 gm/dl (6.4-8.2)
[2019-06-30] MEDS ORDERED: IOVERSOL 100ml IV PRN (06:43)
--- NOTE | 2019-06-30 06:59 | CT Scan Report ---
CT abd pelvis IV con only CLINICAL HISTORY: 74 years-old Female presenting with Lower GIB-BRBPR, located 4:00 AM with rectal bl eeding, on Plavix. TECHNIQUE: Multidetector CT of the abdomen and pelvis was performed after the administration of intra venous contrast. IV contrast: 94 mL of Optiray 320. One or more dose lowering techniques were used co nsistent with the principles of ALARA (as low as reasonably achievable), including automatic exposure control, mA or kV adjustment to individual patient size, and/or use of iterative reconstruction. COMPARISON: None. CT DOSE (mGy.cm): The estimated cumulative dose is 336.62 mGy.cm. 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 Lung bases: Multichamber enlargement of the heart. Coronary artery and aortic valve calcification. No pericardial or pleural effusion. Extensive atelectasis at the lung bases there is also suspected int erlobular septal thickening and patchy groundglass opacity. Right middle lobe and lingular atelectasi s or scarring. Liver: Normal morphology. Subcentimeter well-defined hypodense lesion in the central right hepatic lo be likely hepatic cyst or hamartoma. Patent hepatic vasculature. Biliary: No intrahepatic biliary ductal dilatation. Mild prominence of the common bile duct. Normal g allbladder. Pancreas: Normal. Spleen: Normal. Adrenal glands: Nodular thickening of the left adrenal gland, possibly indicative of underlying nodul es. Right adrenal gland normal. Kidneys and ureters: Few subcentimeter cysts noted throughout many too small to characterize. No neph rolithiasis or hydronephrosis. Renovascular calcification. Ureters minimally distended without obstru ction. Bladder: Incompletely evaluated secondary to underdistention. Pelvic organs: Uterus surgically absent. No adnexal masses. Bowel: Layering fluid in the rectum. No rectal wall thickening. Diverticulosis of the proximal sigmoi d and distal descending colon. High density intraluminal fluid at the junction of the descending and sigmoid colon (series 3 image 276). This is suggestive of extravasation of intravascular contrast int o the bowel lumen. No colonic wall thickening or pericolonic inflammatory change in the area of diver ticulosis. Moderate stool burden in the right colon. The appendix is normal. No bowel obstruction. Peritoneal cavity: No free fluid or intraperitoneal gas. Lymph nodes: No enlarged lymph nodes in the abdomen or pelvis. Vasculature: Atherosclerosis of the abdominal aorta with luminal irregularity related to ulcerative p laque. There is also mild ectasia of the infrarenal portion measuring up to 2.4 cm in diameter. IVC p atent. Abdominal wall: Normal. Musculoskeletal: Degenerative changes of the spine. IMPRESSION: 1. Findings highly suspicious for extravasation of intravascular contrast into the bowel lumen at th e level of the junction of the descending and sigmoid colon, where there is diverticulosis. This slig htly represents a diverticular bleed. 2. No evidence of diverticulitis. 3. Mild congestive change and developing pulmonary edema may be present at the lung bases. ACT 112: Negative or not required by law. Electronically signed by: Salvador Beard M.D. 06/30/2019 6:58 AM
--- NOTE | 2019-06-30 07:11 | Emergency Department Note ---
History of Present Illness General Chief complaint: Rectal Bleed Stated complaint: BLEEDING Source: patient Mode of arrival: ambulatory Limitations: no limitations History of Present Illness Provider complaint: Bright red blood per rectum Onset (ago): hour(s) less than 1 This patient is a 74-year-old female who presents to the emergency department with complaints of bright red blood per rectum. Patient states she woke up from sleep to go to the restroom and felt warm liquid coming down the leg. She thought she was incontinent of stool however upon reaching the bathroom realized that she was bleeding. Patient states she does take Plavix and aspirin but denies any anticoagulation. She denies any history of GI bleed or significant hemorrhoids in the past. Patient denies any recent illness, chest pain, shortness of breath, fever, dizziness or syncope. Home Medications Home Medications Medication Instructions Recorded Confirmed Type PreserVision AREDS 1 tab PO BID 07/21/18 06/30/19 History aspirin 81 mg tablet,delayed 81 mg PO DAILY 09/05/18 06/30/19 History release nitroglycerin 0.4 mg sublingual 0.4 mg SUBLINGUAL ONCE PRN btl 09/26/18 06/30/19 History tablet cholecalciferol (vitamin D3) 50 4,000 units PO BID tab 10/25/18 06/30/19 History mcg (2,000 unit) tablet furosemide 20 mg tablet 20 mg PO DAILY PRN #90 tab 12/21/18 06/30/19 Rx rosuvastatin 5 mg tablet 5 mg PO DAILY #14 tab 04/17/19 06/30/19 Rx clopidogrel 75 mg tablet 75 mg PO DAILY #90 tab 04/24/19 06/30/19 Rx metoprolol succinate 25 mg 25 mg PO DAILY #90 tab 05/22/19 06/30/19 Rx tablet,extended release 24 hr Allergies Allergy/AdvReac Type Severity Reaction Status Date / Time rosuvastatin AdvReac Intermediate GI upset, Verified 06/30/19 05:43 fatigue simvastatin [From Zocor] AdvReac Unknown Myalgia Verified 06/30/19 05:43 Past Med/Surg History Medical History Acute respiratory failure with hypoxia Acute systolic CHF (congestive heart failure) Bradycardia Cardiomyopathy (Chronic) COPD (chronic obstructive pulmonary disease) (Chronic) Emphysema of lung Mitral regurgitation Surgical History History of total hysterectomy Hx of tubal ligation Family History Mother Pulmonary embolism Denies family history of Ovarian cancer Prostate cancer Myocardial infarction Breast cancer Colorectal cancer Social History Preferred Language: Iraqi Communication Ability: Effective Beliefs That Will Affect Care: None Current Living Situation: Spouse current occupational status: retired Feels Safe at Home: Yes Smoking Status: Current every day smoker Tobacco Type: cigarettes ; Cigarettes Per Day: 10 ; Second Hand Exposure: No ; Hx Alcohol Use: Yes Alcohol type: beer Hx Substance Use: No Review of Systems See HPI for pertinent positives & negatives. and A total of 10 systems reviewed and were otherwise negative Physical Exam Vital Signs Vital Signs - 24 hr 06/30/19 05:26 06/30/19 06:08 06/30/19 06:11 Temperature 36.7 C Temperature Source Oral Pulse Rate 78 69 77 Pulse Rate from SpO2 Sensor 69 Respiratory Rate 20 21 20 Respiratory Effort / Characteristics Non-Labored Spontaneous Respiratory Depth Normal Blood Pressure 145/74 H 142/61 H Blood Pressure Mean 97 82 Pulse Oximetry 93 94 94 Oxygen Delivery Method Room Air Room Air Sepsis Action Taken by Nursing No Action Required Vital signs reviewed. General: Well-appearing 74 yo female, in no significant distress. HEENT: No scleral icterus, PERRLA, neck supple. Atraumatic. Cardiovascular: Regular rate and rhythm, no extra sounds. Pulmonary: Clear to auscultation bilaterally, normal work of breathing. Abdomen: Soft, nontender, nondistended, positive bowel sounds. Musculoskeletal: Atraumatic, no peripheral edema. Rectal: Normal mucosa, BRBPR Neurologic: Patient awake alert and oriented x 3. Skin: Warm, dry, no rash Course Administered Medications Sodium Chloride (Nss 1000ml) 1,000 mls @ 100 mls/hr IV .Q10H MARIBEL Stop: 06/30/19 15:44 Last Admin: 06/30/19 06:19 Dose: 100 mls/hr Documented by: [id number] Ioversol (Optiray 320 100ml) 94 ml IV ONCE PRN PRN Reason: Interaction Checking Stop: 07/04/19 06:42 Last Admin: 06/30/19 06:43 Dose: 94 ml Documented by: [id number] Medical Decision Making Differential Diagnosis Differential diagnosis: Etiologies such as esophagitis, variceal bleed, Boerhaaves, Lagro-Camacho tear, gastritis, peptic ulcer disease, AVM, inflammatory bowel disease, ischemia, diverticulosis, colitis, malignancy, coagulopathy, thrombocytopenia, fissure, hemorrhoid, epistaxis , as well as others were entertained. Medical Records Attestation: I reviewed the patient's medical records. Home Medications Current Medication List: was personally reviewed by me Laboratory Data Attestation: I reviewed the patient's lab results. Result diagrams: 06/30/19 06:09 06/30/19 06:09 Lab Results 06/30/19 06/30/19 06/30/19 Range/Units 06:09 06:09 06:09 WBC 7.18 (4.8-10.8) K/uL RBC 4.19 L (4.2-5.4) M/uL Hgb 13.1 (12.0-16.0) g/dL Hct 38.2 (37-47) % MCV 91.2 (80-100) fL MCH 31.3 (25-34) pg MCHC 34.3 (32-36) g/dL RDW Std Deviation 48.1 H (36.4-46.3) fL RDW Coeff of Ani 14.4 (11.5-14.5) % Plt Count 295 (130-400) K/uL MPV 10.3 (7.4-10.4) fL Immature Gran % (Auto) 0.1 % Neut % (Auto) 68.4 % Lymph % (Auto) 19.4 % Fisher % (Auto) 7.1 % Eos % (Auto) 4.6 % Baso % (Auto) 0.4 % Immature Gran # (Auto) 0.01 (0.00-0.02) K/uL Neut # (Auto) 4.91 (1.4-6.5) K/uL Lymph # (Auto) 1.39 (1.2-3.4) K/uL Fisher # (Auto) 0.51 (0.11-0.59) K/uL Eos # (Auto) 0.33 (0-0.5) K/uL Baso # (Auto) 0.03 (0-0.2) K/uL PT 10.6 (9.0-12.0) Seconds INR 1.0 (0.9-1.1) APTT 26.9 (21.0-31.0) Seconds PTT Ratio 1.0 Sodium 139 (136-145) mmol/L Potassium 3.8 (3.5-5.1) mmol/L Chloride 109 H (98-107) mmol/L Carbon Dioxide 25 (21-32) mmol/L Anion Gap 5.0 (3-11) BUN 13 (7-18) mg/dl Creatinine 0.80 (0.6-1.2) mg/dl Est Cr Clr Drug Dosing 54.0 ml/min Est GFR ( Amer) 84.2 Est GFR (Non-Af Amer) 72.6 BUN/Creatinine Ratio 15.7 (10-20) Glucose 91 (70-99) mg/dl Calcium 8.6 (8.5-10.1) mg/dl Total Bilirubin 0.3 (0.2-1) mg/dl AST 15 (15-37) U/L ALT 20 (12-78) U/L Alkaline Phosphatase 75 (45-117) U/L Total Protein 7.5 (6.4-8.2) gm/dl Albumin 3.5 (3.4-5.0) gm/dl Globulin 4.0 (2.5-4.0) gm/dl Albumin/Globulin Ratio 0.9 (0.9-2) Blood Type Antibody Screen 06/30/19 Range/Units 06:09 WBC (4.8-10.8) K/uL RBC (4.2-5.4) M/uL Hgb (12.0-16.0) g/dL Hct (37-47) % MCV (80-100) fL MCH (25-34) pg MCHC (32-36) g/dL RDW Std Deviation (36.4-46.3) fL RDW Coeff of Ani (11.5-14.5) % Plt Count (130-400) K/uL MPV (7.4-10.4) fL Immature Gran % (Auto) % Neut % (Auto) % Lymph % (Auto) % Fisher % (Auto) % Eos % (Auto) % Baso % (Auto) % Immature Gran # (Auto) (0.00-0.02) K/uL Neut # (Auto) (1.4-6.5) K/uL Lymph # (Auto) (1.2-3.4) K/uL Fisher # (Auto) (0.11-0.59) K/uL Eos # (Auto) (0-0.5) K/uL Baso # (Auto) (0-0.2) K/uL PT (9.0-12.0) Seconds INR (0.9-1.1) APTT (21.0-31.0) Seconds PTT Ratio Sodium (136-145) mmol/L Potassium (3.5-5.1) mmol/L Chloride (98-107) mmol/L Carbon Dioxide (21-32) mmol/L Anion Gap (3-11) BUN (7-18) mg/dl Creatinine (0.6-1.2) mg/dl Est Cr Clr Drug Dosing ml/min Est GFR ( Amer) Est GFR (Non-Af Amer) BUN/Creatinine Ratio (10-20) Glucose (70-99) mg/dl Calcium (8.5-10.1) mg/dl Total Bilirubin (0.2-1) mg/dl AST (15-37) U/L ALT (12-78) U/L Alkaline Phosphatase (45-117) U/L Total Protein (6.4-8.2) gm/dl Albumin (3.4-5.0) gm/dl Globulin (2.5-4.0) gm/dl Albumin/Globulin Ratio (0.9-2) Blood Type A Positive Antibody Screen NEGATIVE Imaging Data Radiologist's Impression: CT abd pelvis IV con only CLINICAL HISTORY: 74 years-old Female presenting with Lower GIB-BRBPR, located 4:00 AM with rectal bleeding, on Plavix. TECHNIQUE: Multidetector CT of the abdomen and pelvis was performed after the administration of intravenous contrast. IV contrast: 94 mL of Optiray 320. One o r more dose lowering techniques were used consistent with the principles of ALARA (as low as reasonably achievable), including automatic exposure control, mA or kV adjustment to individual patient size, and/or use of iterative reconstruction. COMPARISON: None. CT DOSE (mGy.cm): The estimated cumulative dose is 336.62 mGy.cm. 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 Lung bases: Multichamber enlargement of the heart. Coronary artery and aortic valve calcification. No pericardial or pleural effusion. Extensive atelectasis at the lung bases there is also suspected interlobular septal thickening and patchy groundglass opacity. Right middle lobe and lingular atelectasis or scarring. Liver: Normal morphology. Subcentimeter well-defined hypodense lesion in the central right hepatic lobe likely hepatic cyst or hamartoma. Patent hepatic vasculature. Biliary: No intrahepatic biliary ductal dilatation. Mild prominence of the common bile duct. Normal gallbladder. Pancreas: Normal. Spleen: Normal. Adrenal glands: Nodular thickening of the left adrenal gland, possibly indicative of underlying nodules. Right adrenal gland normal. Kidneys and ureters: Few subcentimeter cysts noted throughout many too small to characterize. No nephrolithiasis or hydronephrosis. Renovascular calcification. Ureters minimally distended without obstruction. Bladder: Incompletely evaluated secondary to underdistention. Pelvic organs: Uterus surgically absent. No adnexal masses. Bowel: Layering fluid in the rectum. No rectal wall thickening. Diverticulosis of the proximal sigmoid and distal descending colon. High density intraluminal fluid at the junction of the descending and sigmoid colon (series 3 image 276). This is suggestive of extravasation of intravascular contrast into the bowel lumen. No colonic wall thickening or pericolonic inflammatory change in the area of diverticulosis. Moderate stool burden in the right colon. The appendix is normal. No bowel obstruction. Peritoneal cavity: No free fluid or intraperitoneal gas. Lymph nodes: No enlarged lymph nodes in the abdomen or pelvis. Vasculature: Atherosclerosis of the abdominal aorta with luminal irregularity related to ulcerative plaque. There is also mild ectasia of the infrarenal portion measuring up to 2.4 cm in diameter. IVC patent. Abdominal wall: Normal. Musculoskeletal: Degenerative changes of the spine. IMPRESSION: 1. Findings highly suspicious for extravasation of intravascular contrast into the bowel lumen at the level of the junction of the descending and sigmoid colon, where there is diverticulosis. This slightly represents a diverticular bleed. 2. No evidence of diverticulitis. 3. Mild congestive change and developing pulmonary edema may be present at the lung bases. ACT 112: Negative or not required by law. Electronically signed by: Salvador Beard M.D. 06/30/2019 6:58 AM Dictated: 06/30/1950 Transcribed: 06/30/19649 ECG Data Attestation: I personally reviewed and interpreted this ECG as follows: Indication: + other Rate (beats per minute): 74 Rhythm: + other ECG Intervals/blocks: + Normal QT ECG [place]: + Normal ECG ST segments: + Nonspecific ST abnormalities ECG Findings: + Q waves; no PACs and no PVCs Blood Pressure Blood Pressure Findings: Elevated blood pressure Blood Pressure Disposition: further management by hospitalist MDM Narrative An order for cardiac monitoring was placed and the patient is found to be in a sinus rhythm at 67 bpm. This patient was evaluated and appeared to be in no significant distress. Physical examination is consistent with an acute lower GI bleed. IV hydration was initiated. Patient's H&H is found to be stable on laboratory evaluation. EKG reveals no evidence of acute ischemia. CT imaging of the abdomen pelvis was performed and reveals an acute diverticular bleed. Patient was discussed with the hospitalist service who will evaluate the patient for further management. Patient is aware of the plan and agrees. Impression & Plan Diverticular hemorrhage Discharge Plan Visit Data Chief Complaint: Rectal Bleed Stated Complaint: BLEEDING ED Provider: Ligia Hernandez Discharge Problem: Diverticular hemorrhage Forms Stand Alone Forms: [facility] [place] [employer] Prescriptions Prescriptions: No Action aspirin [Adult Low Dose Aspirin] 81 mg tablet,delayed release (DR/EC) 81 mg PO DAILY RF: 0 furosemide 20 mg tablet 20 mg PO DAILY PRN (Reason: edema) Qty: 90 RF: 3 rosuvastatin 5 mg tablet 5 mg PO DAILY Qty: 14 RF: 0 clopidogrel [Plavix] 75 mg tablet 75 mg PO DAILY Qty: 90 RF: 3 metoprolol succinate 25 mg tablet extended release 24 hr 25 mg PO DAILY Qty: 90 RF: 3 nitroglycerin [Nitrostat] 0.4 mg tablet, sublingual 0.4 mg sublingual ONCE PRN (Reason: chest pain) RF: 0 cholecalciferol (vitamin D3) [Vitamin D3] 2,000 unit tablet 4,000 units PO BID RF: 0 PreserVision AREDS 7,160-113-100 [id number] Tablet 1 tab PO BID RF: 0
--- NOTE | 2019-06-30 07:56 | History & Physical Report ---
Date of Service June 30, 2019 Assessment & Plan (1) Diverticular hemorrhage: likely diverticular colonic bleeding, no preceeding pain, checked hgb at noon and had dropped 1 gm, hopefully to have colonoscopy 06/[address] Harp, did order bowel prep and have held aspirin and plavix. the pt has never had a colonoscopy CT abd and pelvis IMPRESSION: 1. Findings highly suspicious for extravasation of intravascular contrast into the bowel lumen at the level of the junction of the descending and sigmoid colon, where there is diverticulosis. This slightly represents a diverticular bleed. 2. No evidence of diverticulitis. 3. Mild congestive change and developing pulmonary edema may be present at the lung bases (2) COPD (chronic obstructive pulmonary disease): Pt does continue to smoke after stopping shortly after CABG last summer. she is not on any scheduled medication for copd (3) Hx of CABG: for secondary cardiovascular risk reduction we are continuing metoprolol but holding asa and plavix, we will cautiously use IVF at this time although she has a history of HFrEF with EF last recorded at 45%. she continues on rosuvastatin, typically sees Dr Grossman (4) GERD without esophagitis: typically uses lifestyle modifications (5) DVT prophylaxis: will use scd as chemoprophylaxis is prohibited due to bleeding History of Present Illness Primary Care Provider: Hang Gramajo MD 74-year-old female who presents to the emergency department with complaints of bright red blood per rectum that began this am. Patient states she woke up from sleep to go to the restroom and felt warm liquid coming down the leg. She thought she was incontinent of stool however upon reaching the bathroom realized that she was bleeding. Patient does take Plavix and aspirin due to recent CABG in the fall of 2108 but denies any ohter formal anticoagulation. She denies any history of GI bleed or significant hemorrhoids in the past. She has never had a colonoscopy. She has resumed smoking, does not want a nicotine patch and is resistant to counseling to stop smoking Patient denies any recent illness, chest pain, shortness of breath, fever, dizziness or syncope. Allergies Allergy/AdvReac Type Severity Reaction Status Date / Time rosuvastatin AdvReac Intermediate GI upset, Verified 06/30/19 05:43 fatigue simvastatin [From Zocor] AdvReac Unknown Myalgia Verified 06/30/19 05:43 Home Medications Home Medications Medication Instructions Recorded Confirmed Type PreserVision AREDS 1 tab PO BID 07/21/18 06/30/19 History aspirin 81 mg tablet,delayed 81 mg PO DAILY 09/05/18 06/30/19 History release nitroglycerin 0.4 mg sublingual 0.4 mg SUBLINGUAL ONCE PRN btl 09/26/18 06/30/19 History tablet cholecalciferol (vitamin D3) 50 4,000 units PO BID tab 10/25/18 06/30/19 History mcg (2,000 unit) tablet furosemide 20 mg tablet 20 mg PO DAILY PRN #90 tab 12/21/18 06/30/19 Rx rosuvastatin 5 mg tablet 5 mg PO DAILY #14 tab 04/17/19 06/30/19 Rx clopidogrel 75 mg tablet 75 mg PO DAILY #90 tab 04/24/19 06/30/19 Rx metoprolol succinate 25 mg 25 mg PO DAILY #90 tab 05/22/19 06/30/19 Rx tablet,extended release 24 hr Past Med/Surg History Medical History Acute respiratory failure with hypoxia Acute systolic CHF (congestive heart failure) Bradycardia COPD (chronic obstructive pulmonary disease) (Chronic) Emphysema of lung Mitral regurgitation Surgical History History of total hysterectomy 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 Beliefs That Will Affect Care: None Current Living Situation: Spouse current occupational status: retired Other Information That Helps Us Care for You: No Feels Safe at Home: Yes Safety Concerns: Feels Safe At This Time Smoking Status: Current every day smoker Tobacco Type: cigarettes ; Cigarettes Per Day: < 10 a day ; Do You Dip or Chew Tobacco: No ; Second Hand Exposure: No ; Tobacco Cessation Education Requested by Patient: No Hx Alcohol Use: No Hx Substance Use: No Review of Systems Review of Systems: Mild distress and fatigue no headache, blurry or double vision no speech or swallowing issues no chest pain, pressure or palpitations no shortness of breath, cough or wheezes no abdominal pain, nausea or vomiting, complaints of bright red blood per rectum no dysuria, hematuria or frequency no focal joint pain or swelling no back pain, CVA tenderness or radicular pain no bruising, bleeding or rashes no focal signs of weakness or numbness or altered sensation no complaints or anxiety or depression Physical Exam Physical Exam: The patient appeared well nourished and normally developed. Vital signs as documented. Head exam is normocephalic atraumatic no scleral icterus Neck is without JVD, thyromegaly, or carotid bruits. Lungs are clear to auscultation, no focal loss of breath sounds Cardiac exam, Rhythm is regular.. No murmurs, rubs or gallops. Abdominal exam reveals normal bowel sounds, soft non tender, no masses Extremities are nonedematous and both pedal pulses are normal. Neurologic exam is alert and oriented, no focal loss of strength or sensation Skin is without bruises or rashes Psychologically is without concerns for anxiety or depression Results & Data Results & Data ([facility]) Vital Signs (Past 12 Hours) Vital Signs Temp Pulse Pulse Resp BP BP Pulse Ox 06/30/19 07:12 67 16 150/71 H 88 L 06/30/19 06:11 77 20 94 06/30/19 06:08 69 21 142/61 H 94 06/30/19 05:26 98.1 F 78 20 145/74 H 93 Code Status & VTE Plan VTE Prophylaxis Plan VTE Prophylaxis will be ordered: Yes PG Care Time/CCT Total # of Minutes Spent Total Time Spent with Patient: Total time spent is greater than 50% in coordination of care (as documented) at patient's floor/unit and/or counseling patient: Coding Level of Care Code 78282 Initial Inpt Care Lvl 3 Diagnoses Diverticular hemorrhage K57.31 COPD (chronic obstructive pulmonary disease) J44.9 Hx of CABG Z95.1 GERD without esophagitis K21.9 DVT prophylaxis Z29.9
--- NOTE | 2019-06-30 09:01 | Electrocardiogram Report ---
Test Reason : Blood Pressure : / mmHG Vent. Rate : 070 BPM Atrial Rate : 070 BPM P-R Int : 154 ms QRS Dur : 090 ms QT Int : 426 ms P-R-T Axes : 051 -07 101 degrees QTc Int : 460 ms Normal sinus rhythm Left ventricular hypertrophy with repolarization abnormality Abnormal ECG When compared with ECG of 23-JUL-2018 06:43, Premature ventricular complexes are no longer Present T-wave inversion in Anterior leads no longer present Confirmed by Calixto Coy ([id number]) on 06/30/2019 9:01:09 AM Referred By: ED Confirmed By:Calixto Coy
[2019-06-30] MEDS ORDERED: ONDANSETRON INJ 2 MG/ML 2 ML VIAL IV PRN (09:39)
[2019-06-30] MEDS ORDERED: POLYETHYLENE (MIRALAX) 17 GM PACK PO SCH (09:39)
[2019-06-30] MEDS ORDERED: MoRPHine SULFATE 2 MG/ML CARP IV PRN (09:39)
[2019-06-30] MEDS ORDERED: ACETAMINOPHEN 325 MG TAB PO PRN (09:39)
[2019-06-30] MEDS ORDERED: LAVAGE SOLUTION 4000ML PO SCH (09:39)
--- NOTE | 2019-06-30 10:23 | Gastrointestinal Consultation ---
Date of Consultation June 30, 2019 Assessment & Plan (1) Hematochezia: (2) Diverticular hemorrhage: (3) Abnormal CT scan, colon: Will proceed with urgent colonoscopy today secondary to hematochezia and extravasation of IV contrast into the colon from probable diverticular source. Continue supportive care Further recommendations to follow History of Present Illness Reason for Consultation: Hematochezia, Abnormal CT scan Colon Attending Physician: Arcadio Mishra MD History of Present Illness Zahira Moses presented to the ER early this morning with complaints of painless bright red blood per rectum. She states that she got up to go to the bathroom noted blood running down her legs. She presented to the ER, and was noted to have a stable H/H of 13.1 and 38.2, and was hemodynamically stable. A CT scan of her abd/pelvis in the ER with IV contrast showed extravasation of contrast into the colon at the junction of the descending and sigmoid colon, felt to be consistent with a diverticular bleed. She is on Aspirin and Plavix daily, and last took them yesterday. I spoke to Dr. Mishra and advised starting a bowel prep CORI in case she would need urgent colonoscopy for further evaluation. At the time that I saw the patient, she was lying in bed, having just gotten off of the bedside commode following bowel prep and Fleets Enemas x2. She states that she continues to have no abdominal pain, fevers, chills, nausea, or vomiting. She has had multiple BM's with blood since her prep, though she states it has gotten progressively less blood the more she has gone. She denies any lightheadedness or dizziness, and has no further complaints. Allergies Allergy/AdvReac Type Severity Reaction Status Date / Time rosuvastatin AdvReac Intermediate GI upset, Verified 06/30/19 05:43 fatigue simvastatin [From Zocor] AdvReac Unknown Myalgia Verified 06/30/19 05:43 Home Medications Home Medications Medication Instructions Recorded Confirmed Type PreserVision AREDS 1 tab PO BID 07/21/18 06/30/19 History aspirin 81 mg tablet,delayed 81 mg PO DAILY 09/05/18 06/30/19 History release nitroglycerin 0.4 mg sublingual 0.4 mg SUBLINGUAL ONCE PRN btl 09/26/18 06/30/19 History tablet cholecalciferol (vitamin D3) 50 4,000 units PO BID tab 10/25/18 06/30/19 History mcg (2,000 unit) tablet furosemide 20 mg tablet 20 mg PO DAILY PRN #90 tab 12/21/18 06/30/19 Rx rosuvastatin 5 mg tablet 5 mg PO DAILY #14 tab 04/17/19 06/30/19 Rx clopidogrel 75 mg tablet 75 mg PO DAILY #90 tab 04/24/19 06/30/19 Rx metoprolol succinate 25 mg 25 mg PO DAILY #90 tab 05/22/19 06/30/19 Rx tablet,extended release 24 hr Patient History Medical History Acute respiratory failure with hypoxia Acute systolic CHF (congestive heart failure) Bradycardia COPD (chronic obstructive pulmonary disease) (Chronic) Emphysema of lung Mitral regurgitation Surgical History History of total hysterectomy 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 Beliefs That Will Affect Care: None Current Living Situation: Spouse current occupational status: retired Other Information That Helps Us Care for You: No Feels Safe at Home: Yes Safety Concerns: Feels Safe At This Time Smoking Status: Current every day smoker Tobacco Type: cigarettes ; Cigarettes Per Day: < 10 a day ; Do You Dip or Chew Tobacco: No ; Second Hand Exposure: No ; Tobacco Cessation Education Requested by Patient: No Hx Alcohol Use: No Hx Substance Use: No Review of Systems Review of Systems: All systems reviewed & are unremarkable except as noted in HPI & below Physical Exam Constitutional: WD/WN, vitals as above Eyes: PERRL, conjunctivae normal, anicteric sclerae ENMT: external ear and nose normal, oropharynx normal Neck: trachea midline, no thyromegaly Respiratory: normal respiratory effort, lungs clear to auscultation Cardiovascular: RRR, no murmur, no edema Gastrointestinal (Abdomen): normal bowel sounds, soft, nontender, no hepatosplenomegaly Skin: no rashes, warm and dry Psychiatric: A+Ox3, euthymic affect Results & Data ([facility]) Vital Signs (Past 12 Hours) Vital Signs Temp Pulse Pulse Resp BP BP Pulse Ox 06/30/19 08:50 74 16 143/104 H 06/30/19 07:12 67 16 150/71 H 88 L 06/30/19 06:11 77 20 94 06/30/19 06:08 69 21 142/61 H 94 06/30/19 05:26 36.7 C 78 20 145/74 H 93 PG Care Time/CCT Total # of Minutes Spent Total Time Spent with Patient: Total time spent is greater than 50% in coordination of care (as documented) at patient's floor/unit and/or counseling patient: Coding Level of Care Code 57871 Initial Inpt Care Lvl 3 Diagnoses Hematochezia K92.1 Diverticular hemorrhage K57.[address] scan, colon R93.3
[2019-06-30] MEDS ORDERED: SOD PHOSPHATE/SOD BIPHOSPHATE ENEMA 132 ML BTL PR STA (11:40)
[2019-06-30] MEDS: METOPROLOL SUCC 25MG EXT REL TAB PO SCH (11:57)
[2019-06-30 12:10] LABS: Hematocrit (blood only) 35.4 % (37-47)
[2019-06-30] MEDS ORDERED: PROPOFOL IV EMULSION 10 MG/ML 20 ML VIAL IV ONE ×2 (14:09→14:56)
[2019-06-30] MEDS ORDERED: LIDOCAINE HCL 2% 2 ML VIAL/AMP(20MG/ML) INFIL ONE ×2 (14:20→14:56)
--- NOTE | 2019-06-30 14:30 | Anesthesiology Consultation ---
Date of Service June 30, 2019 mild acute on chronic chf copd acute blood loss anemia smoker severe cad, s/p cabg in 2019 dual antiplatelet therapy Assessment & Plan Chart Review Chart Review: Acceptable Risk for Surgery and Patient NOT seen in Pre Admission Testing Consults Requested none ASA ASA2 Proposed Anesthesia Anesthesia Type: MAC Risk / Benefits Reviewed With: PT / POA / Parent / Guardian, Accepts Plan and Informed Consent Obtained History Surgery Operation Date: 06/30/19 12:05 Proposed Procedures p Colonoscopy Dr. Loyd Harp, Height/Weight Height: 5 ft 1 in Weight: 67 kg Allergies Allergy/AdvReac Type Severity Reaction Status Date / Time rosuvastatin AdvReac Intermediate GI upset, Verified 06/30/19 05:43 fatigue simvastatin [From Zocor] AdvReac Unknown Myalgia Verified 06/30/19 05:43 Medications Home Medications Medication Instructions Recorded Confirmed Last Taken PreserVision AREDS 1 tab PO BID 07/21/18 06/30/19 06/29/19 aspirin 81 mg tablet,delayed 81 mg PO DAILY 09/05/18 06/30/19 06/29/19 release nitroglycerin 0.4 mg sublingual 0.4 mg SUBLINGUAL ONCE PRN btl 09/26/18 06/30/19 Unknown tablet cholecalciferol (vitamin D3) 50 4,000 units PO BID tab 10/25/18 06/30/19 06/29/19 mcg (2,000 unit) tablet furosemide 20 mg tablet 20 mg PO DAILY PRN #90 tab 12/21/18 06/30/19 Unknown rosuvastatin 5 mg tablet 5 mg PO DAILY #14 tab 04/17/19 06/30/19 06/29/19 clopidogrel 75 mg tablet 75 mg PO DAILY #90 tab 04/24/19 06/30/19 06/29/19 metoprolol succinate 25 mg 25 mg PO DAILY #90 tab 05/22/19 06/30/19 06/29/19 tablet,extended release 24 hr Active Medications Generic Name Dose Route Start Last Admin Trade Name Freq PRN Reason Stop Dose Admin Sodium Chloride 1,000 mls @ 100 mls/hr 06/30/19 09:39 06/30/19 10:32 Nss 1000ml IV 07/30/19 09:38 100 mls/hr .Q10H MARIBEL Administration Metoprolol Succinate 25 mg 06/30/19 09:39 06/30/19 11:57 Toprol Xl PO 07/30/19 09:38 25 mg DAILY MARIBEL Administration NPO Date Last Intake of Fluids: 06/30/19 Time Last Intake of Fluids: 11:00 Last Intake of Fluids Comment: colon prep Date Last Intake of Solids: 06/29/19 Time Last Intake of Solids: 17:00 Past Medical History Medical History Acute respiratory failure with hypoxia Acute systolic CHF (congestive heart failure) Bradycardia COPD (chronic obstructive pulmonary disease) (Chronic) Emphysema of lung Mitral regurgitation Exercise / Class Metabolic Activity III < 4 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 LORD -> lad, svg ->OM1, svg->rca Hx of tubal ligation Past Anesthesia History No Hx of Anesthesia Complications and No Family Hx of Anesthesia Complications History of PONV No Hx of PONV and No Hx of Motion Sickness Social History Smoking Status: Current every day smoker tobacco type: cigarettes Smoking cigarettes per day: < 10 a day Do You Dip or Chew Tobacco: No Hx Alcohol Use: No Alcohol type: beer alcohol intake frequency: a few times a week Alcohol Intake Frequency Comment: not since on meds Hx Substance Use: No substance use type: does not use Physical Exam Vital Signs Last Vital Signs Temp 36.8 C 06/30/19 14:21 Pulse 73 06/30/19 14:21 Resp 18 06/30/19 14:21 BP 142/67 H 06/30/19 14:21 Pulse Ox 88 L 06/30/19 14:21 ENMT Mouth: + dentures Thyromental Distance: > or= 3.5 Finger Breadths Mallampati Class: II Neck normal visual inspection and + thick neck Respiratory normal respiratory effort Auscultation: + diminished lung sounds (at bases) Cardiovascular Rate/Rhythm: regular rate and regular rhythm Psychiatric Orientation: alert Testing Laboratory Results 06/30/19 12:00 06/30/19 06:09 PT 10.6 Seconds (9.0-12.0) 06/30/19 06:09 INR 1.0 (0.9-1.1) 06/30/19 06:09 APTT 26.9 Seconds (21.0-31.0) 06/30/19 06:09 Blood Type A Positive 06/30/19 06:09 Antibody Screen NEGATIVE 06/30/19 06:09 Electrocardiogram Date: 06/30/19 Findings: + NSR @ and + LVH Chest X-Ray Date: 06/30/19 Findings: + cardiomegaly mild chf. s/p sternotomy Echocardiogram EF: 40-45% LV Function: global HK Valvular Disease: + no significant valvular disease
--- NOTE | 2019-06-30 15:30 | Anesthesiology Progress Note ---
Date of Service June 30, 2019 Anesthesia Post Procedure Vital Signs Vital Signs: Temp Pulse Pulse Pulse Resp BP BP 06/30/19 15:20 83 18 122/52 L 06/30/19 14:21 36.8 C 73 18 142/67 H 06/30/19 09:39 82 06/30/19 09:32 36.7 C 72 18 131/77 06/30/19 08:50 74 16 143/104 H 06/30/19 07:12 67 16 150/71 H 06/30/19 06:11 77 20 06/30/19 06:08 69 21 142/61 H 06/30/19 05:26 36.7 C 78 20 145/74 H Pulse Ox 06/30/19 15:20 99 06/30/19 14:21 88 L 06/30/19 09:39 06/30/19 09:32 92 06/30/19 08:50 06/30/19 07:12 88 L 06/30/19 06:11 94 06/30/19 06:08 94 06/30/19 05:26 93 Transfer of Care Handoff Completed per policy Notes Mental Status: alert / awake / arousable Patient Amnestic to Procedure: Yes Nausea / Vomiting: adequately controlled Pain: adequately controlled Airway Patency, RR, SpO2: stable & adequate BP & HR: stable & adequate Hydration State: stable & adequate Anesthetic Complications: no major complications apparent and Pt Satisfied with anesthetic care
--- NOTE | 2019-06-30 15:35 | GI REPORT ---
Patient Name: Zahira Moses Procedure Date: 06/30/2019 2:07 PM Date of : 1945 Admit Type: Inpatient Age: 74 Gender: Female Attending MD: Nikko Harp DO Procedure: Colonoscopy Providers: Nikko Harp DO Referring MD: Arcadio Mishra Indications: Hematochezia Medicines: Monitored Anesthesia Care Complications: No immediate complications. Estimated Blood Loss: Estimated blood loss: none. Procedure: Pre-Anesthesia Assessment: - Prior to the procedure, a History and Physical was performed, and patient medications and allergies were reviewed. The patient's tolerance of previous anesthesia was also reviewed. The risks and benefits of the procedure and the sedation options and risks were discussed with the patient. All questions were answered, and informed consent was obtained. Prior Anticoagulants: The patient last took aspirin 1 day and Plavix (clopidogrel) 1 day prior to the procedure. ASA Grade Assessment: IV - A patient with severe systemic disease that is a constant threat to life. After reviewing the risks and benefits, the patient was deemed in satisfactory condition to undergo the procedure. After I obtained informed consent, the scope was passed under direct vision. Throughout the procedure, the patient's blood pressure, pulse, and oxygen saturations were monitored continuously. The scope was introduced through the anus and advanced to the terminal ileum. The colonoscopy was performed without difficulty. The patient tolerated the procedure well. The quality of the bowel preparation was fair. The terminal ileum, ileocecal valve, appendiceal orifice, and rectum were photographed. Findings: The perianal and digital rectal examinations were normal. Hematin (altered blood/ttocam-bclbio-[id number] material) was found in the rectum, in the sigmoid colon, in the descending colon, in the transverse colon and in the ascending colon. Multiple sessile polyps were found in the sigmoid colon, transverse colon and ascending colon. The polyps were 3 to 6 mm in size. Polypectomy was not attempted due to hematochezia from probable diverticular bleed. Many small and large-mouthed diverticula were found in the sigmoid colon and descending colon. There was evidence of recent bleeding from the diverticular opening. Non-bleeding internal hemorrhoids were found during retroflexion. Impression: - Preparation of the colon was fair. - Blood in the rectum, in the sigmoid colon, in the descending colon, in the transverse colon and in the ascending colon. - Multiple 3 to 6 mm polyps in the sigmoid colon, in the transverse colon and in the ascending colon. Resection not attempted. - Moderate diverticulosis in the sigmoid colon and in the descending colon. There was evidence of recent bleeding from the diverticular opening. - Non-bleeding internal hemorrhoids. - No specimens collected. Recommendation: - [facility]. - Clear liquid diet. - If patient rebleeds consider transfer to tertiary care center for IR therapy versus surgery consult for resection. - Repeat colonoscopy in 3 months for surveillance of multiple polyps. Nikko Harp, DO 06/30/2019 3:35:02 PM This report has been signed electronically. Note Initiated On: 06/30/2019 2:07 PM Number of Addenda: 0 I attest to the content of the Intraoperative Record and orders documented therein, exceptions below {[id number]}
[2019-06-30] MEDS ORDERED: LORazepam 0.5 MG TAB PO PRN (18:40)
[2019-06-30 19:06] LABS: Hematocrit (blood only) 30.2 % (37-47); Hemoglobin 10.1 g/dL (12.0-16.0)
[2019-06-30] MEDS: CEROVITE ADV FORMULA TAB PO SCH (21:14)
--- NOTE | 2019-06-30 23:04 | Nuclear Medicine Report ---
NM GI bleeding CLINICAL HISTORY: lower gi bleed bleeding COMPARISON STUDY: CT same day FINDINGS: This examination performed following the tagging of red blood cells with 30 mCi technetium 99m UltraTag. The initial dynamic images are unremarkable. Flow characteristics are unremarkable. Images from 5 to 60 minutes demonstrate what appears to be a bleeding focus at the junction of the de scending and sigmoid colonic regions. There is partial reflux of isotope to the descending colon. No additional foci of increased activity are present. IMPRESSION: Focus of bleeding juncture of the descending and sigmoid colonic regions. ACT 112: Negative or not required by law. The above report was generated using voice recognition software. It may contain grammatical, syntax or spelling errors. Electronically signed by: Dwight Coleman M.D. 06/30/2019 11:02 PM
[2019-07-01 06:47] LABS: Hematocrit (blood only) 28.4 % (37-47); Hemoglobin 9.5 g/dL (12.0-16.0); Mean Corpuscular Hemoglobin 30.4 pg (25-34); Mean Corpuscular Hgb Conc 33.5 g/dL (32-36); Mean Platelet Volume 10.3 fL (7.4-10.4); Platelet Count 268 K/uL (130-400); RDW Coefficient of Variation 14.7 % (11.5-14.5); RDW Standard Deviation 49.5 fL (36.4-46.3); Red Blood Count 3.12 M/uL (4.2-5.4); White Blood Count 5.71 K/uL (4.8-10.8)
[2019-07-01 07:12] LABS: BUN Creatinine Ratio 15.8 (10-20); Calcium 7.5 mg/dl (8.5-10.1); Est GFR (African American) 105.2; Est GFR (Non-African American) 90.8; Potassium 3.3 mmol/L (3.5-5.1)
[2019-07-01] MEDS: CEROVITE ADV FORMULA TAB PO SCH (07:51)
[2019-07-01] MEDS: METOPROLOL SUCC 25MG EXT REL TAB PO SCH (07:51)
[2019-07-01] MEDS ORDERED: Nursing to Pharmacy Communication ONE (10:39)
--- NOTE | 2019-07-01 13:33 | Discharge Summary ---
Date of Service July 01, 2019 Admission HPI Per Admitting Provider 74-year-old female who presents to the emergency department with complaints of bright red blood per rectum that began this am. Patient states she woke up from sleep to go to the restroom and felt warm liquid coming down the leg. She thought she was incontinent of stool however upon reaching the bathroom realized that she was bleeding. Patient does take Plavix and aspirin due to recent CABG in the fall of 2108 but denies any ohter formal anticoagulation. She denies any history of GI bleed or significant hemorrhoids in the past. She has never had a colonoscopy. She has resumed smoking, does not want a nicotine patch and is resistant to counseling to stop smoking Patient denies any recent illness, chest pain, shortness of breath, fever, dizziness or syncope. Principal Diagnosis Lower GI bleed suspect diverticular bleed Acute blood loss anemia secondary to above COPD mild Discharge Exam The patient appeared well Vital signs as documented. Lungs are clear to auscultation and appear unlabored but overall of poor air movement Cardiac exam, Rhythm is regular.. No murmurs, rubs or gallops. Abdominal exam reveals normal bowel sounds, soft non tender, no masses Extremities are nonedematous and both pedal pulses are normal. Neurologic exam is alert and oriented, no focal loss of strength or sensation Skin is without bruises or rashes Psychologically is without concerns for anxiety or depression Discharge Data Allergies Allergy/AdvReac Type Severity Reaction Status Date / Time rosuvastatin AdvReac Intermediate GI upset, Verified 06/30/19 05:43 fatigue simvastatin [From Zocor] AdvReac Unknown Myalgia Verified 06/30/19 05:43 Consultations 06/30/19 09:39 Consult Gastroenterology Routine 07/01/19 09:45 Burn CD for patient Stat Procedures Performed Operation Date: 06/30/19 12:05 Actual Procedures p Colonoscopy - Nikko Harp DO Ordered Studies 06/30/19 06:04 CT abd pelvis IV con only Stat Hospital Course (1) Diverticular hemorrhage: likely diverticular colonic bleeding, no preceeding pain, checked hgb at noon and had dropped 1 gm, hopefully to have colonoscopy 06/[address] Harp, williams order bowel prep and have held aspirin and plavix. the pt has never had a colonoscopy Patient had persistent continued bleeding throughout the evening with a hemoglobin drop of 4 g nuclear medicine study continuing to show active bleeding in the descending colon [facility] was called and this case was discussed with the triage physician for possible interventional radiology. They reviewed the case including images sent to them and agreed except the patient in transfer for possible procedure to stop bleeding Nuclear medicine scan 06/30/2019 11 PM IMPRESSION images from 5 to 60 minutes demonstrate what appears to be a bleeding focus at the junction of the descending and sigmoid colonic regions. There is partial reflux of isotope to the descending colon. No additional foci of increased activity are present. CT abd and pelvis IMPRESSION: 1. Findings highly suspicious for extravasation of intravascular contrast into the bowel lumen at the level of the junction of the descending and sigmoid colon, where there is diverticulosis. This slightly represents a diverticular bleed. 2. No evidence of diverticulitis. 3. Mild congestive change and developing pulmonary edema may be present at the lung bases (2) COPD (chronic obstructive pulmonary disease): Pt does continue to smoke after stopping shortly after CABG last summer. she is not on any scheduled medication for copd (3) Hx of CABG: for secondary cardiovascular risk reduction we are continuing metoprolol but holding asa and plavix, we did cautiously use IVF at this time although she has a history of HFrEF with EF last recorded at 45%. she continues on rosuvastatin, typically sees Dr Grossman (4) GERD without esophagitis: typically uses lifestyle modifications (5) DVT prophylaxis: will use scd as chemoprophylaxis is prohibited due to bleeding Total Time Total Time Spent Total Time Spent (In Minutes): Discharge 30 including discussion with [facility] physicians patient and patient's who came to the lobby of the hospital Discharge Plan Discharge Items Patient Disposition: Transfer Acute Care Hospital Reason For Visit: HEMATOCHEZIA Discharge Diagnosis: recurrent distal colon bleeding acute blood loss anemia Activity: Per Instructions section Activity Comment: limited to inhospital at this time Non-emergency contact: Primary Care Provider Call non-emergency contact if: you have any medication questions Follow-up/Referrals: Tae Gramajo MD [Primary Care Provider] - Diet: Nothing by Mouth Addtl Attending Provider Instructions: please follow up with your primary care provider after discharge Pending Studies at Discharge: No Stand-Alone Forms: My [facility] Skilled Items Patient informed of condition?: Yes DNR: No Discharge Level of Care: Other Communicable Disease: No Discharge Prognosis: Stable Lines: Peripheral IV Urinary Catheter: No Medications and DC Order Prescriptions: Continued rosuvastatin 5 mg tablet 5 mg PO DAILY Qty: 14 RF: 0 metoprolol succinate 25 mg tablet extended release 24 hr 25 mg PO DAILY Qty: 90 RF: 3 nitroglycerin [Nitrostat] 0.4 mg tablet, sublingual 0.4 mg sublingual ONCE PRN (Reason: chest pain) RF: 0 cholecalciferol (vitamin D3) [Vitamin D3] 2,000 unit tablet 4,000 units PO BID RF: 0 PreserVision AREDS [id number] Tablet 1 tab PO BID RF: 0 Discontinued aspirin [Adult Low Dose Aspirin] 81 mg tablet,delayed release (DR/EC) 81 mg PO DAILY RF: 0 furosemide 20 mg tablet 20 mg PO DAILY PRN (Reason: edema) Qty: 90 RF: 3 clopidogrel [Plavix] 75 mg tablet 75 mg PO DAILY Qty: 90 RF: 3 Discharge Orders: Discharge Order (Routine); Ordered 07/01/19 Ordered By: Arcadio Mishra Admission Data Admit Date/Time: 06/30/19 09:52 Attending Provider: Arcadio Mishra Admit Provider: Arcadio Mishra Primary Care Provider: Tae Gramajo Other Providers: Nikko Harp Other Interventions: Discharge Summary Assessment (RN) Last Done: 07/01/19 11:55 DC Date/Time DO NOT enter until pt leaves facility: 07/01/19 12:17 Coding Level of Care Code D/C Day Management >30 mins Diagnoses Diverticular hemorrhage K57.31 COPD (chronic obstructive pulmonary disease) J44.9 Hx of CABG Z95.1 GERD without esophagitis K21.9 DVT prophylaxis Z29.9
[2019-07-01] MEDS ORDERED: PRESERVISION AREDS 2: NON-FORMULARY PATIENT'S OWN MED PO SCH (21:00)
== END 2019-07-01 12:17 | disposition short-term general hospital (02) | DRG 378 ==
LOC: 2S 05:22 → ED 05:22 → 2S 09:10

== ENCOUNTER 2023-10-08 12:23 | Inpatient (IN) ==
--- NOTE | 2023-10-08 12:57 | Emergency Department Note ---
Impression & Plan Hypoxia, Pyelonephritis, Hematuria, Acute UTI ED Provider Note NAME: ROSE GOLDMAN AGE: 78 SEX: F : 1945 ARRIVES VIA: Walk-In INFORMANT: Patient ED PROVIDER(S): Jaime Perez DO CHIEF COMPLAINT: Hematuria HPI: Patient is a 78-year-old female who presents to the ER following a fall 2 days ago. She notes she called her who was falling. She caught it with her right wrist. She did fall down and hit her buttocks. After being at home last night she started noticing some blood in her urine. She started thinking about the fall and now believes that she did hit her back. She denies any head pain or neck pain. No chest pain or belly pain. No nausea, vomiting, or diarrhea. No dysuria, urgency, or frequency. No other exacerbating or remitting factors. ADDITIONAL HISTORY OBTAINED: Per HPI Chronic Medical/Social Conditions Affecting Care: Per HPI PAST MEDICAL HISTORY:See Below PAST SURGICAL HISTORY:See Below FAMILY HISTORY:See Below SOCIAL HISTORY:See Below HOME MEDICATIONS:See Below ALLERGIES:See Below VITALS:See Below PHYSICAL EXAMINATION: GENERAL: Sitting up in bed, alert, well appearing, well nourished, no distress, non-toxic HEAD: NC/AT EYE EXAM: normal conjunctiva. PERRL and EOM's grossly intact. OROPHARYNX: no exudate, no erythema, lips, buccal mucosa, and tongue normal and mucous membranes are moist NECK: supple, no nuchal rigidity, no adenopathy, non-tender LUNGS: Clear to auscultation. Normal chest wall mechanics HEART: no murmurs, S1 normal and S2 normal ABDOMEN: abdomen soft, non-tender, normo-active bowel sounds, no masses, no rebound or guarding. BACK: Back is symmetrical on inspection and there is no deformity, no midline tenderness, no CVA tenderness. SKIN: no rashes and no bruising UPPER EXTREMITIES: upper extremities are grossly normal. LOWER EXTREMITIES: No pitting edema. NEURO EXAM: Normal sensorium, cranial nerves II-XII grossly intact, normal speech, no gross weakness of arms, no gross weakness of legs. No drift. Finger to nose intact. Gross sensation intact. MEDICAL DECISION MAKING: Patient is a 78-year-old female who presents ER for the above-stated complaint. IV was established blood work is obtained. Labs show mild leukocytosis of 12.7 thousand. No significant anemia. UA with a mild home hyponatremia at 134. LFTs and bilirubin was unremarkable. Troponin faintly elevated at 16. Lipase was normal. UA with nitrates, leuks, whites, and bacteria all consistent with a UTI. CT abdomen pelvis shows a standing bilateral ureteral infection. CT of the head chest abdomen pelvis showed no acute fractures with the exception of subacute rib fractures although patient has no tenderness on palpation of the chest wall. There is no bruising from the fall. Patient was given Tylenol for the wrist fracture. She is updated bedside. She was given IV fluids and Rocephin. Discussed case with the hospitalist for bilateral ascending infection of the kidneys and ureters. Of note patient was also found to be slightly hypoxic. She notes she always is 88 but she was lower in the low 80s. She denies any shortness of breath. Remained on 2 L throughout her stay in the ER. Consults/Care Managements Discussions: Per [facility] Triage Nursing notes reviewed. Limited review of prior medical records performed Vital Signs: reviewed and remarkable for no significant abnormalities Differential diagnosis: Differential diagnoses includes but is not limited to gastritis, peptic ulcer disease, GERD, gallbladder disease, pancreatitis, small bowel obstruction, appendicitis, diverticulitis, hernia, urinary tract infection, torsion, perforation, trauma, infectious. ER treatment provided: See below Diagnostics interpreted by me include EKG and cardiac monitoring as listed below: -Cardiac Monitoring: An order was placed for continuous cardiac monitoring. The monitor shows a rate of 70 with sinus rhythm. -ECG: Sinus rhythm rate of [address] depressions V4 through V6 as well as the inferior leads and high lateral leads consistent with the previous -Laboratory studies:Interpreted by me as stated above in MDM and shown below. Imaging studies: Xrays: As interpreted by me:none CTs show: CT angio the chest shows no pneumothorax per my preliminary interpretation CT of the head cervical spine chest abdomen pelvis shows a ascending bilateral ureteral infection combination with subacute rib fractures Procedures:none Critical Care: I have personally spent 32 minutes of critical care time in the direct management of this patient. This includes bedside care, interpretation of diagnostic studies, and testing, discussion with consultants, patient, and family members, and other required patient management activities. This 32 minutes is in excess of all separately billable procedures. Past Med/Surg History Problem List (Updated 10/08/23 @ 15:58 by Jaime Perez DO) Hypoxia (Acute) Acute UTI (Acute) Hematuria (Acute) Pyelonephritis (Acute) Blood in urine Right radial fracture (Acute ~10/07/23) acute nondisplaced intra-articular distal right radial fracture Contusion (Acute) Fall (Acute) Fracture of wrist (Acute 10/07/23) Fell while trying to help her while he was falling.acute nondisplaced intra-articular distal right radial fracture Pulmonary nodule Back skin lesion Chronic systolic (congestive) heart failure Impacted cerumen, right ear Sensorineural hearing loss (SNHL) of both ears Otalgia of right ear Tinnitus of both ears Parotid nodule Allergic rhinitis with postnasal drip Chronic bronchitis Current smoker Hyperlipidemia Abnormal diffusion capacity determined by pulmonary function test Personal history of nicotine dependence Ischemic cardiomyopathy Abnormal CT scan, colon Hematochezia 06/2019 -> related to anticoagulants, stopped and no futher problems. 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 LORD -> lad, svg ->OM1, svg->rca x3 vessels ([facility]) GERD without esophagitis (Acute) Osteoporosis (Acute) Personal history of noncompliance with medical treatment, presenting hazards to health (Acute) Pulmonary emphysema (Acute) Status post aorto-coronary artery bypass graft (Chronic) Patent foramen ovale (Chronic) Vitamin D deficiency (Chronic) Multiple pulmonary nodules (Chronic) Pre-diabetes (Chronic) Bradycardia pt denies Mitral regurgitation COPD (chronic obstructive pulmonary disease) (Chronic) no inhalers Medical History Vitamin D deficiency Diabetes PFO (patent foramen ovale) Parotid nodule Osteoporosis Multiple pulmonary nodules Mitral regurgitation History of ischemic cardiomyopathy GERD (gastroesophageal reflux disease) Current smoker COPD (chronic obstructive pulmonary disease) Chronic systolic (congestive) heart failure Chronic bronchitis Macular degeneration Chronic cough History of COVID-19 Depression Anxiety Hypertension Acute systolic CHF (congestive heart failure) (2019) Emphysema of lung Surgical History History of coronary artery bypass graft x 3 07/2018. LORD -> lad, svg ->OM1, svg->rca x3 vessels ([facility]) History of cardiac cath 07/2018. no stents History of cataract surgery right eye/left eye History of colonoscopy History of total hysterectomy Hx of tubal ligation Family History Mother Myocardial infarction Pulmonary embolism Uncle Myocardial infarction Other No family history of adverse response to anesthesia Denies family history of Ovarian cancer Prostate cancer Breast cancer Colorectal cancer Social History Smoking Status: Never smoker Tobacco Type: Cigarettes Age Started Using Tobacco: 12; packs per day: 0.5; Cigarettes Per Day: 10 per day -advised; Second Hand Exposure: No; Do You Dip or Chew Tobacco: No; Hx Alcohol Use: Yes Alcohol type: beer Alcohol Intake Frequency: Monthly or Less Alcohol Intake Frequency Comment: rare Hx Substance Use: No Preferred Language: Japanese Communication Ability: Effective Visual Impairment: Limited Hearing Ability: Normal Patent Drafter Required: No Beliefs That Will Affect Care: None marital status: Current Living Situation: Spouse current occupational status: retired current occupation: [employer], [employer] Feels Safe at Home: Yes Childhood Exposure to Second-Hand Smoke: Yes Diet: low salt caffeine: Yes during the past year weight has: remained stable Dental Care, Regularly: No Physical Activity Frequency: Daily Seatbelt Use: always Sunscreen Use: No Assistive Devices: Denture - Upper, Denture - Lower and Glasses Allergies Allergies Allergy/AdvReac Type Severity Reaction Status Date / Time simvastatin [From Zocor] AdvReac Intermediate Myalgia Verified 10/08/23 10:47 Home Meds Home Medications Medication Instructions Recorded Confirmed vitamins A,C,[id number]-[id number] 2,148 1 tab PO BID 07/21/18 10/08/23 mcg-113 mg-45 mg-17.4 mg tablet (PreserVision AREDS) cholecalciferol (vitamin D3) 50 4,000 unit PO BID 03/03/22 10/08/23 mcg (2,000 unit) capsule aspirin 81 mg tablet,delayed 81 mg PO QAM 03/24/23 10/08/23 release (Adult Low Dose Aspirin) losartan 25 mg tablet (Cozaar) 25 mg PO QAM 09/01/23 10/08/23 ciprofloxacin HCl 500 mg tablet 500 mg PO UD 10/08/23 10/08/23 (Cipro) Previous Rx's Medication Instructions Recorded nitroglycerin 0.4 mg sublingual 0.4 mg sublingual ONCE PRN chest 01/21/23 tablet (Nitrostat) pain #1 btl furosemide 20 mg tablet 20 mg PO DAILY PRN edema #60 tabs 02/05/23 metoprolol succinate 25 mg 50 mg (2 x 25 mg) PO QAM #180 tabs 04/28/23 tablet,extended release 24 hr rosuvastatin 5 mg tablet 5 mg PO QAM #90 tabs 04/28/23 spironolactone 25 mg tablet 25 mg PO QAM #90 tabs 04/28/23 Results & Data (ED) Vital Signs Vital Signs - 24 hr 10/08/23 12:26 10/08/23 12:49 10/08/23 12:51 Temperature Temperature Source Pulse Rate 67 Respiratory Rate 14 Blood Pressure 133/76 Blood Pressure Mean 88 Pulse Oximetry 95 Oxygen Delivery Method Room Air Oxygen Flow Rate Sepsis Recent Fever Within 48 Hours No Sepsis New/Unexplained Change in Mental Status No Sepsis Action Taken by Nursing No Action Required Oxygen Flow Rate - Titration Pulse Oximetry Post Tiitration 10/08/23 12:53 10/08/23 13:00 10/08/23 13:12 Temperature Temperature Source Pulse Rate 69 64 66 Respiratory Rate 16 Blood Pressure Blood Pressure Mean Pulse Oximetry 95 93 Oxygen Delivery Method Room Air Room Air Oxygen Flow Rate Sepsis Recent Fever Within 48 Hours Sepsis New/Unexplained Change in Mental Status Sepsis Action Taken by Nursing Oxygen Flow Rate - Titration Pulse Oximetry Post Tiitration 10/08/23 13:32 10/08/23 13:35 10/08/23 13:42 Temperature Temperature Source Pulse Rate 71 Respiratory Rate 22 Blood Pressure 146/73 H Blood Pressure Mean 96 Pulse Oximetry 74 L 97 Oxygen Delivery Method Nasal Cannula Nasal Cannula Oxygen Flow Rate 0 3 Sepsis Recent Fever Within 48 Hours Sepsis New/Unexplained Change in Mental Status Sepsis Action Taken by Nursing Oxygen Flow Rate - Titration 3 Pulse Oximetry Post Tiitration 97 10/08/23 13:54 10/08/23 14:01 10/08/23 14:09 Temperature 36.8 C Temperature Source Oral Pulse Rate 75 Respiratory Rate 19 Blood Pressure 157/66 H Blood Pressure Mean 91 Pulse Oximetry 94 Oxygen Delivery Method Nasal Cannula Oxygen Flow Rate 3 Sepsis Recent Fever Within 48 Hours Sepsis New/Unexplained Change in Mental Status Sepsis Action Taken by Nursing Oxygen Flow Rate - Titration Pulse Oximetry Post Tiitration 10/08/23 14:24 10/08/23 14:30 10/08/23 15:08 Temperature Temperature Source Pulse Rate 75 69 Respiratory Rate 24 Blood Pressure 145/81 H Blood Pressure Mean 107 Pulse Oximetry 95 Oxygen Delivery Method Nasal Cannula Oxygen Flow Rate 3 Sepsis Recent Fever Within 48 Hours Sepsis New/Unexplained Change in Mental Status Sepsis Action Taken by Nursing Oxygen Flow Rate - Titration Pulse Oximetry Post Tiitration 10/08/23 15:11 10/08/23 15:31 10/08/23 15:35 Temperature Temperature Source Pulse Rate 84 67 Respiratory Rate 20 19 Blood Pressure 137/70 Blood Pressure Mean 112 Pulse Oximetry 97 Oxygen Delivery Method Nasal Cannula Oxygen Flow Rate 3 Sepsis Recent Fever Within 48 Hours Sepsis New/Unexplained Change in Mental Status Sepsis Action Taken by Nursing Oxygen Flow Rate - Titration Pulse Oximetry Post Tiitration Laboratory Data 10/08/23 12:44 10/08/23 12:44 Lab Results 10/08/23 10/08/23 10/08/23 Range/Units 12:40 12:44 12:44 WBC 12.75 H (4.8-10.8) K/ul RBC 4.62 (4.20-5.40) M/uL Hgb 14.6 (12.0-16.0) g/dl POC Hgb (12.0-16.0) g/dl Hct 43.9 (37.0-47.0) % POC Hct (37-47) % MCV 95.0 (80.0-100.0) fL MCH 31.6 (25.0-34.0) pg MCHC 33.3 (32.0-36.0) g/dL RDW Std Deviation 49.5 H (36.4-46.3) fL RDW Coeff of Ani 14.2 (11.5-14.5) % Plt Count 276 (130-400) K/uL MPV 10.8 (9.4-12.4) fL Immature Gran % (Auto) 0.5 % Neut % (Auto) 79.4 % Lymph % (Auto) 12.0 % [place] % (Auto) 6.7 % Eos % (Auto) 1.0 % Baso % (Auto) 0.4 % Neut # (Auto) 10.12 H (1.40-6.50) K/uL Lymph # (Auto) 1.53 (1.20-3.40) K/uL [place] # (Auto) 0.86 H (0.11-0.59) K/uL Eos # (Auto) 0.13 (0.00-0.50) K/uL Baso # (Auto) 0.05 (0.00-0.20) K/uL Immature Gran # (Auto) 0.06 (0.01-0.20) K/uL POC Sodium (135-144) mmol/L Sodium 134 L (136-145) mmol/L POC Potassium (3.3-5.0) mmol/L Potassium 4.2 (3.5-5.1) mmol/L POC Chloride (101-112) mmol/L Chloride 101 (98-107) mmol/L Carbon Dioxide 26 (21-32) mmol/L POC Total CO2 (24-31) mmol/L Anion Gap 7 (3-11) POC Anion Gap (16-25) mmol/L POC BUN (7-18) mg/dl BUN 20 (6-23) mg/dl Creatinine 0.85 (0.6-1.2) mg/dl POC Creatinine (0.6-1.3) mg/dl Est Cr Clr Drug Dosing 47.5 ml/min Est GFR ( Amer) 76.1 ml/min Est GFR (Non-Af Amer) 65.6 ml/min BUN/Creatinine Ratio 23.5 H (10-20) Glucose 97 (70-99(Fasting)) mg/dl POC Glucose (other) (70-99) mg/dl Calcium 9.5 (8.6-10.3) mg/dl POC Ioniz Calcium Joan (1.12-1.32) mmol/l Total Bilirubin 0.5 (0.2-1.0) mg/dl AST 17 (13-39) U/L ALT 12 (7-52) U/L Alkaline Phosphatase 79 (34-104) U/L Troponin I High Sens 16.8 H Cancelled (0-14) pg/ml Total Protein 7.6 (6.0-8.3) gm/dl Albumin 4.4 (3.4-5.0) gm/dl Globulin 3.2 (2.5-4.0) gm/dl Albumin/Globulin Ratio 1.4 (0.9-2) Lipase 16 (11-82) U/L Urine Color [place] Urine Appearance Cloudy A (Clear) Urine pH 5.5 (4.5-7.5) Ur Specific [place] 1.014 (1.000-1.030) Urine Protein 2+ H (Negative) Urine Glucose (UA) Negative (Negative) Urine Ketones Negative (Negative) Urine Blood 3+ H (Negative) Urine Nitrite Positive A (Negative) Urine Bilirubin Negative (Negative) Urine Urobilinogen Negative (Negative) Ur Leukocyte Esterase 3+ H (Negative) Urine WBC (Auto) >50 H (0-5) /hpf Urine RBC (Auto) >20 H (0-2) /hpf U Hyaline Cast (Auto) 3-5 H (0-2) /lpf U Epithel Cells (Auto) 3-5 H (0-2) /hpf Urine Bacteria (Auto) 3+ H (None Seen) Adenovirus (PCR) (NotDetected) B. pertussis DNA (PCR) (NotDetected) B.parapertussis DNA PCR (NotDetected) C. pneumoniae DNA (PCR) (NotDetected) Coronavirus OC43 (PCR) (NotDetected) Coronavirus HKU1 (PCR) (NotDetected) Coronavirus 229E (PCR) (NotDetected) SARS-CoV-2 (PCR) (NotDetected) Coronavirus NL63 (PCR) (NotDetected) Human Metapneumovir PCR (NotDetected) Influenza Type A (PCR) (NotDetected) Influenza Type B (PCR) (NotDetected) M. pneumoniae (PCR) (NotDetected) Parainfluenza 1 (PCR) (NotDetected) Parainfluenza 2 (PCR) (NotDetected) Parainfluenza 3 (PCR) (NotDetected) Parainfluenza 4 (PCR) (NotDetected) RSV (PCR) (NotDetected) Entero/Rhino (PCR) (NotDetected) 10/08/23 10/08/23 Range/Units 13:10 14:10 WBC (4.8-10.8) K/ul RBC (4.20-5.40) M/uL Hgb (12.0-16.0) g/dl POC Hgb 13.9 (12.0-16.0) g/dl Hct (37.0-47.0) % POC Hct 41 (37-47) % MCV (80.0-100.0) fL MCH (25.0-34.0) pg MCHC (32.0-36.0) g/dL RDW Std Deviation (36.4-46.3) fL RDW Coeff of Ani (11.5-14.5) % Plt Count (130-400) K/uL MPV (9.4-12.4) fL Immature Gran % (Auto) % Neut % (Auto) % Lymph % (Auto) % [place] % (Auto) % Eos % (Auto) % Baso % (Auto) % Neut # (Auto) (1.40-6.50) K/uL Lymph # (Auto) (1.20-3.40) K/uL [place] # (Auto) (0.11-0.59) K/uL Eos # (Auto) (0.00-0.50) K/uL Baso # (Auto) (0.00-0.20) K/uL Immature Gran # (Auto) (0.01-0.20) K/uL POC Sodium 133 L (135-144) mmol/L Sodium (136-145) mmol/L POC Potassium 5.7 H (3.3-5.0) mmol/L Potassium (3.5-5.1) mmol/L POC Chloride 106 (101-112) mmol/L Chloride (98-107) mmol/L Carbon Dioxide (21-32) mmol/L POC Total CO2 26 (24-31) mmol/L Anion Gap (3-11) POC Anion Gap 8.0 L (16-25) mmol/L POC BUN 28 H (7-18) mg/dl BUN (6-23) mg/dl Creatinine (0.6-1.2) mg/dl POC Creatinine 0.9 (0.6-1.3) mg/dl Est Cr Clr Drug Dosing ml/min Est GFR ( Amer) ml/min Est GFR (Non-Af Amer) ml/min BUN/Creatinine Ratio (10-20) Glucose (70-99(Fasting)) mg/dl POC Glucose (other) 95 (70-99) mg/dl Calcium (8.6-10.3) mg/dl POC Ioniz Calcium Joan 1.09 L (1.12-1.32) mmol/l Total Bilirubin (0.2-1.0) mg/dl AST (13-39) U/L ALT (7-52) U/L Alkaline Phosphatase (34-104) U/L Troponin I High Sens (0-14) pg/ml Total Protein (6.0-8.3) gm/dl Albumin (3.4-5.0) gm/dl Globulin (2.5-4.0) gm/dl Albumin/Globulin Ratio (0.9-2) Lipase (11-82) U/L Urine Color Urine Appearance (Clear) Urine pH (4.5-7.5) Ur Specific [place] (1.000-1.030) Urine Protein (Negative) Urine Glucose (UA) (Negative) Urine Ketones (Negative) Urine Blood (Negative) Urine Nitrite (Negative) Urine Bilirubin (Negative) Urine Urobilinogen (Negative) Ur Leukocyte Esterase (Negative) Urine WBC (Auto) (0-5) /hpf Urine RBC (Auto) (0-2) /hpf U Hyaline Cast (Auto) (0-2) /lpf U Epithel Cells (Auto) (0-2) /hpf Urine Bacteria (Auto) (None Seen) Adenovirus (PCR) Not Detected (NotDetected) B. pertussis DNA (PCR) Not Detected (NotDetected) B.parapertussis DNA PCR Not Detected (NotDetected) C. pneumoniae DNA (PCR) Not Detected (NotDetected) Coronavirus OC43 (PCR) Not Detected (NotDetected) Coronavirus HKU1 (PCR) Not Detected (NotDetected) Coronavirus 229E (PCR) Not Detected (NotDetected) SARS-CoV-2 (PCR) Not Detected (NotDetected) Coronavirus NL63 (PCR) Not Detected (NotDetected) Human Metapneumovir PCR Not Detected (NotDetected) Influenza Type A (PCR) Not Detected (NotDetected) Influenza Type B (PCR) Not Detected (NotDetected) M. pneumoniae (PCR) Not Detected (NotDetected) Parainfluenza 1 (PCR) Not Detected (NotDetected) Parainfluenza 2 (PCR) Not Detected (NotDetected) Parainfluenza 3 (PCR) Not Detected (NotDetected) Parainfluenza 4 (PCR) Not Detected (NotDetected) RSV (PCR) Not Detected (NotDetected) Entero/Rhino (PCR) Not Detected (NotDetected) Administered Medications Discontinued Medications Acetaminophen (Acetaminophen 325 Mg Tab) 650 mg PO NOW STA Stop: 10/08/23 15:33 Last Admin: 10/08/23 15:34 Dose: 650 mg Documented By: ARABELLA Sodium Chloride (Nss) 1,000 mls @ 999 mls/hr IV .Q1H1M ONE Stop: 10/08/23 13:53 Last Infusion: 10/08/23 14:14 Dose: Infused Documented By: Admin: 10/08/23 13:05 Dose: 999 mls/hr Documented By: ARABELLA Ceftriaxone Sodium (Rocephin) 2,000 mg in 50 mls @ 100 mls/hr IV NOW STA Stop: 10/08/23 14:30 Last Infusion: 10/08/23 14:48 Dose: Infused Documented By: [facility] Admin: 10/08/23 14:08 Dose: 100 mls/hr Documented By: ARABELLA Ioversol (Optiray 320 100ml) 94 ml IV ONCE ONE Stop: 10/08/23 13:29 Last Admin: 10/08/23 13:28 Dose: 94 ml Documented By: [facility] Imaging Data Radiologist's Impression: Abdomen/Pelvis CT 10/08/23 12:53 CT abd pelvis IV con only CLINICAL HISTORY: hematuria s/p fall TECHNIQUE: Helical axial images of the abdomen and pelvis were obtained and displayed. Automated dose lowering techniques and/or adjustment according to patient size were utilized for this exam. This exam was performed with intravenous contrast. COMPARISON: Comparison is made to CT abdomen pelvis 06/30/2019 FINDINGS: Lower chest: For findings above the diaphragm, please see CT chest performed same day. Liver: Focal fatty changes are noted about the falciform ligament. Gallbladder and biliary tree: No calcified gallstones. Normal caliber wall. No intra- or extrahepatic biliary ductal dilation. Pancreas: Unremarkable, no focal lesions. Spleen: Unremarkable. Adrenals: Nodularity of the left adrenal gland is unchanged. Kidneys and ureters: Renal cysts are seen. There is enhancement of the bilateral ureters without evidence of obstruction. Bladder: Diffuse homogeneous wall thickening is seen. Reproductive organs: Patient is status post hysterectomy. Bowel: Diverticulosis is seen without diverticulitis. The appendix is normal. Lymph nodes Retroperitoneal: Unremarkable. Pelvic: Unremarkable. Mesenteric: Unremarkable. Peritoneum: Normal. Vessels: Atherosclerotic calcifications are seen. Infrarenal aortic aneurysm measures up to 27 mm in diameter. Abdominal wall: Unremarkable. Bones: Degenerative changes in the visualized spine. IMPRESSION: 1. No evidence of acute fracture. 2. Enhancement of the bilateral ureteral rosado which may represent ascending infection in this patient with a thickened bladder as well. Correlation with urinalysis is recommended. ACT 112: Negative or not required by law. Electronically signed by: Shane Vicente M.D. 10/08/2023 1:[address] 10/08/23 12:53 CT OF THE CERVICAL SPINE WITHOUT CONTRAST CLINICAL HISTORY: fall COMPARISON STUDY: PET/CT May 07, 2021. TECHNIQUE: Helical axial images of the cervical spine were obtained without IV contrast. Sagittal and coronal reconstructions were viewed. Automated exposure control was utilized for the study. A dose lowering technique was utilized adhering to the principles of ALARA. FINDINGS: Alignment of the cervical spine is anatomic. Vertebral body heights are maintained. No acute cervical spine fracture or subluxation is present. There is no prevertebral edema. Facet joints are intact. There is severe multilevel facet arthrosis disc space narrowing within the cervical spine. IMPRESSION: No acute cervical spine fracture or subluxation. ACT 112: Negative or not required by law. Electronically signed by: Nito Leahy M.D. 10/08/2023 1:[address] 10/08/23 12:53 CT chest diagnostic w con CLINICAL HISTORY: fall TECHNIQUE: Multidetector row helical CT of the chest was performed with intravenous contrast. Coronal and sagittal reformations were obtained. Automated dose lowering techniques and/or adjustment according to patient size were utilized for this exam. Comparison: Comparison is made to chest 08/19/2023 FINDINGS: Lungs and pleura: Interstitial thickening and bronchial wall thickening are unchanged from prior exam with some emphysema is noted peripherally. Densities in the right lower lung are unchanged measuring up to 2 cm (series 10 image 95). Heart and pericardium: Heart size is normal. No pericardial effusion. Vessels: Severe atherosclerotic changes in the aorta and coronary arteries. Mediastinum and yuni: Unremarkable. Chest wall and lower neck: Unremarkable. Abdomen: For findings below the diaphragm, please refer to CT of the abdomen dated the same. Bones: Degenerative changes of the thoracic spine. Old healed rib fractures are seen on the right and there are subacute appearing left rib fractures IMPRESSION: Subacute appearing left rib fractures without acute abnormality. Pulmonary nodular densities are unchanged from prior exam. Stable emphysema. ACT 112: Negative or not required by law. Electronically signed by: Shane Vicente M.D. 10/08/2023 1:[address] 10/08/23 12:[address] DOSE: 2903.58 mGy.cm HISTORY: Fall. TECHNIQUE: Multiaxial CT images of the head were performed without the use of intravenous contrast. Automated exposure control was utilized for this study. A dose lowering technique was utilized adhering to the principles of ALARA. Comparison: None. Findings: The paranasal sinuses and mastoid air cells are clear. The calvarium and skull base are intact. The ventricles and sulci are within normal limits. There is no mass, hematoma, midline shift, or acute infarct. Impression: No acute intracranial abnormality. ACT 112: Negative or not required by law. Electronically signed by: Aurelio Coughlin M.D. 10/08/2023 2:14 PM Discharge Plan Visit Data Chief Complaint: Hematuria Stated Complaint: HEMURTIA ED Provider: Jaime Perez Discharge Problem: Hypoxia, Pyelonephritis, Hematuria, Acute UTI Forms Stand Alone Forms: [facility] Prescriptions Prescriptions: No Action nitroglycerin [Nitrostat] 0.4 mg tablet, sublingual 0.4 mg sublingual ONCE PRN (Reason: chest pain) Qty: 1 3RF rosuvastatin 5 mg tablet 5 mg PO QAM Qty: 90 3RF spironolactone 25 mg tablet 25 mg PO QAM Qty: 90 3RF metoprolol succinate 25 mg tablet extended release 24 hr 50 mg PO QAM Qty: 180 3RF Rx Instructions: qam cholecalciferol (vitamin D3) 50 mcg (2,000 unit) capsule 4,000 unit PO BID furosemide 20 mg tablet 20 mg PO DAILY PRN (Reason: edema) Qty: 60 5RF PreserVision AREDS [id number] Tablet 1 tab PO BID aspirin [Adult Low Dose Aspirin] 81 mg tablet,delayed release (DR/EC) 81 mg PO QAM Rx Instructions: qam losartan [Cozaar] 25 mg tablet 25 mg PO QAM ciprofloxacin HCl [Cipro] 500 mg tablet 500 mg PO UD Rx Instructions: 500 mg po bid per pt she said she doesn't take the medication but it looks to have been just prescribed today 10/07 Referrals Referrals: Hang Gramajo MD [Primary Care Provider] - Discharge Problem: Hematuria Qualifiers: Hematuria type: unspecified type Qualified Code(s): R31.9 - Hematuria, unspecified
[2023-10-08] MEDS: SODIUM CHLORIDE 0.9% 1,000 ML IV ONE (13:05)
[2023-10-08 13:17] LABS: Appearance Urine Cloudy (Clear); Bacteria Urine Automated 3+ (None Seen); Bilirubin Urine Negative (Negative); Blood Urine 3+ (Negative); Color Urine Orange; Glucose Urine UA Negative (Negative); Ketones Urine Negative (Negative); Leukocyte Esterase Urine 3+ (Negative); Nitrite Urine Positive (Negative); Protein Urine 2+ (Negative); RBC Urine Automated >20 /hpf (0-2); Specific Gravity Urine 1.014 (1.000-1.030); Urobilinogen Urine Negative (Negative); WBC Urine Automated >50 /hpf (0-5); pH Urine 5.5 (4.5-7.5)
[2023-10-08 13:17] LABS: Albumin Level 4.4 gm/dl (3.4-5.0); Bilirubin,Total 0.5 mg/dl (0.2-1.0); Calcium 9.5 mg/dl (8.6-10.3); Potassium 4.2 mmol/L (3.5-5.1)
[2023-10-08 13:22] LABS: iSTAT Creatinine 0.9 mg/dl (0.6-1.3); iSTAT Hemoglobin 13.9 g/dl (12.0-16.0); iSTAT Ionized Calcium 1.09 mmol/l (1.12-1.32); iSTAT Potassium 5.7 mmol/L (3.3-5.0)
[2023-10-08 13:23] LABS: Albumin Globulin Ratio 1.4 (0.9-2); BUN Creatinine Ratio 23.5 (10-20); Creatinine Clr Calc Pharmacy 47.5 ml/min; Est GFR (African American) 76.1 ml/min; Est GFR (Non-African American) 65.6 ml/min; Globulin 3.2 gm/dl (2.5-4.0); Total Protein 7.6 gm/dl (6.0-8.3)
[2023-10-08 13:24] LABS: Basophils # (auto) 0.05 K/uL (0.00-0.20); Basophils % (auto) 0.4 %; Eosinophils # (auto) 0.13 K/uL (0.00-0.50); Hematocrit (blood only) 43.9 % (37.0-47.0); Hemoglobin 14.6 g/dl (12.0-16.0); Immature Granulocytes # (auto) 0.06 K/uL (0.01-0.20); Immature Granulocytes % (auto) 0.5 %; Lymphocytes # (auto) 1.53 K/uL (1.20-3.40); Mean Corpuscular Hemoglobin 31.6 pg (25.0-34.0); Mean Corpuscular Hgb Conc 33.3 g/dL (32.0-36.0); Mean Platelet Volume 10.8 fL (9.4-12.4); Monocytes # (auto) 0.86 K/uL (0.11-0.59); Monocytes % (auto) 6.7 %; Neutrophils # (auto) 10.12 K/uL (1.40-6.50); Neutrophils % (auto) 79.4 %; Platelet Count 276 K/uL (130-400); RDW Coefficient of Variation 14.2 % (11.5-14.5); RDW Standard Deviation 49.5 fL (36.4-46.3); Red Blood Count 4.62 M/uL (4.20-5.40); White Blood Count 12.75 K/ul (4.8-10.8)
[2023-10-08] MEDS: OPTIRAY 320 100ml IV ONE (13:28)
--- NOTE | 2023-10-08 13:45 | CT Scan Report ---
CT chest diagnostic w con CLINICAL HISTORY: fall TECHNIQUE: Multidetector row helical CT of the chest was performed with intravenous contrast. Coronal and sagittal reformations were obtained. Automated dose lowering techniques and/or adjustment accord ing to patient size were utilized for this exam. Comparison: Comparison is made to chest 08/19/2023 FINDINGS: Lungs and pleura: Interstitial thickening and bronchial wall thickening are unchanged from prior exam with some emphysema is noted peripherally. Densities in the right lower lung are unchanged measuring up to 2 cm (series 10 image 95). Heart and pericardium: Heart size is normal. No pericardial effusion. Vessels: Severe atherosclerotic changes in the aorta and coronary arteries. Mediastinum and yuni: Unremarkable. Chest wall and lower neck: Unremarkable. Abdomen: For findings below the diaphragm, please refer to CT of the abdomen dated the same. Bones: Degenerative changes of the thoracic spine. Old healed rib fractures are seen on the right and there are subacute appearing left rib fractures IMPRESSION: Subacute appearing left rib fractures without acute abnormality. Pulmonary nodular densities are unch anged from prior exam. Stable emphysema. ACT 112: Negative or not required by law. Electronically signed by: Shane Vicente M.D. 10/08/2023 1:42 PM
--- NOTE | 2023-10-08 13:53 | CT Scan Report ---
CT abd pelvis IV con only CLINICAL HISTORY: hematuria s/p fall TECHNIQUE: Helical axial images of the abdomen and pelvis were obtained and displayed. Automated dose lowering techniques and/or adjustment according to patient size were utilized for this exam. This e xam was performed with intravenous contrast. COMPARISON: Comparison is made to CT abdomen pelvis 06/30/2019 FINDINGS: Lower chest: For findings above the diaphragm, please see CT chest performed same day. Liver: Focal fatty changes are noted about the falciform ligament. Gallbladder and biliary tree: No calcified gallstones. Normal caliber wall. No intra- or extrahepatic biliary ductal dilation. Pancreas: Unremarkable, no focal lesions. Spleen: Unremarkable. Adrenals: Nodularity of the left adrenal gland is unchanged. Kidneys and ureters: Renal cysts are seen. There is enhancement of the bilateral ureters without evid ence of obstruction. Bladder: Diffuse homogeneous wall thickening is seen. Reproductive organs: Patient is status post hysterectomy. Bowel: Diverticulosis is seen without diverticulitis. The appendix is normal. Lymph nodes Retroperitoneal: Unremarkable. Pelvic: Unremarkable. Mesenteric: Unremarkable. Peritoneum: Normal. Vessels: Atherosclerotic calcifications are seen. Infrarenal aortic aneurysm measures up to 27 mm in diameter. Abdominal wall: Unremarkable. Bones: Degenerative changes in the visualized spine. IMPRESSION: 1. No evidence of acute fracture. 2. Enhancement of the bilateral ureteral rosado which may represent ascending infection in this patie nt with a thickened bladder as well. Correlation with urinalysis is recommended. ACT 112: Negative or not required by law. Electronically signed by: Shane Vicente M.D. 10/08/2023 1:51 PM
--- NOTE | 2023-10-08 13:53 | CT Scan Report ---
CT OF THE CERVICAL SPINE WITHOUT CONTRAST CLINICAL HISTORY: fall COMPARISON STUDY: PET/CT May 07, 2021. TECHNIQUE: Helical axial images of the cervical spine were obtained without IV contrast. Sagittal a nd coronal reconstructions were viewed. Automated exposure control was utilized for the study. A do se lowering technique was utilized adhering to the principles of ALARA. FINDINGS: Alignment of the cervical spine is anatomic. Vertebral body heights are maintained. No acut e cervical spine fracture or subluxation is present. There is no prevertebral edema. Facet joints are intact. There is severe multilevel facet arthrosis disc space narrowing within the cervical spine. IMPRESSION: No acute cervical spine fracture or subluxation. ACT 112: Negative or not required by law. Electronically signed by: Nito Leahy M.D. 10/08/2023 1:52 PM
[2023-10-08] MEDS: cefTRIAXone SODIUM 2,000 MG/50 ML BAG IV STA (14:08)
--- NOTE | 2023-10-08 14:16 | CT Scan Report ---
HEAD CT NONCONTRAST CT DOSE: 2903.58 mGy.cm HISTORY: Fall. TECHNIQUE: Multiaxial CT images of the head were performed without the use of intravenous contrast. A utomated exposure control was utilized for this study. A dose lowering technique was utilized adheri ng to the principles of ALARA. Comparison: None. Findings: The paranasal sinuses and mastoid air cells are clear. The calvarium and skull base are int act. The ventricles and sulci are within normal limits. There is no mass, hematoma, midline shift, or acute infarct. Impression: No acute intracranial abnormality. ACT 112: Negative or not required by law. Electronically signed by: Aurelio Coughlin M.D. 10/08/2023 2:14 PM
--- NOTE | 2023-10-08 15:24 | History & Physical Report ---
Date of Service October 08, 2023 Assessment & Plan (1) Hematuria: Plan: Acute onset of hematuria that began the evening of 10/06 Hgb 14.6 on arrival Patient reports that she takes aspirin for primary prevention; okay to hold in the setting of gross hematuria Recheck a.m. labs (2) Acute UTI: Plan: UA positive on arrival Clinically, patient denies burning with urination, dysuria, or supra-pubic tende rness Given may be contributing to hematuria, will treat for now Rocephin 2000 mg IV q24h Follow current UCx (3) Acute respiratory failure with hypoxia: Plan: Per nursing staff, patient's SpO2 fell to 74% on RA with good waveform Patient does have history of COPD and reports that she normally hangs out around 88% Not on supplemental oxygen at baseline D-dimer (+) Chest CTA ordered, pending Continuous pulse oximetry Supplemental oxygen as needed to maintain SpO2 89-92% (4) Right radial fracture: Plan: Remote hx of fall with distal right radial fracture on 10/06 Arm is currently in a cast Acetaminophen as needed for pain (5) Hypertension: Plan: Continue metoprolol, losartan (6) COPD (chronic obstructive pulmonary disease): (7) History of ischemic cardiomyopathy: (8) Hx of CABG: Plan Disposition: Admit to [facility] telemetry Full code Regular diet VTE PPx: Teds; hold chemical DVT PPx in the setting of gross hematuria History of Present Illness Chief Complaint: Hematuria, fall Primary Care Provider: Hang Gramajo MD Zahira is a 78-year-old female with PMH of COPD, mitral regurg, PFO, osteoporosis, CABG, ischemic cardiomyopathy, HLD, and CHF. She presented for gross hematuria that began the evening of 10/06. She denies any urinary symptoms such as burning with urination, dysuria, or suprapubic tenderness. She started having dark pink urine evening, then developed d "red/black urine" at her doctor's office when providing a sample on Wednesday morning at 10:30 AM. No prior episodes of hematuria to her knowledge. She does have a history of yeast infections, but not UTIs. Additionally, the patient reports that she fell on Thursday 10/05 and broke her right wrist. Patient is right-handed. This occurred while she was in the kitchen, her tripped and fell into her and she landed on her buttocks and slammed backwards into the fridge. No head strike. No LOC. Patient is not on blood thinners. At present, she endorses achy pain in her right wrist which she rates 6/10. No radiation up her arm. She has been taking Tylenol at home for the pain. Patient is a current everyday tobacco cigarette smoker; 0.5 PPD; declines nicotine patch on admission. She denies any recent alcohol use. No supplemental oxygen at baseline or CPAP at night. No history of DVT/PE. No sick contacts. She took her regular morning medications today. She reports inconsistent compliance with taking aspirin, but took this morning; she takes aspiring for primary prevention; no history of heart stents, per patient. Patient's SpO2 was 97% on 3L NC. Vitals otherwise stable. ED course: NSS 1000 mL IV Rocephin 2000 mg IV ROS: Patient endorses productive cough (chronic), right wrist pain, and new onset hematuria. Patient denies fever, chills, night-sweats, ARZOLA, dizziness/lightheadedness, chest pain, SOB, pleuritic CP, hemoptysis, abd pain, N/V/D, changes in urinary/bowel habits (besides hematuria), blood in stool, saddle anesthesia, lower back pain, or numbness/tingling in the arms or legs. Allergies Allergy/AdvReac Type Severity Reaction Status Date / Time simvastatin [From Zocor] AdvReac Intermediate Myalgia Verified 10/08/23 10:47 Home Medications Medication Instructions Recorded Confirmed Type vitamins A,C,N-fbll-haldbd 2,148 1 tab PO BID 07/21/18 10/08/23 History mcg-113 mg-45 mg-17.4 mg tablet (PreserVision AREDS) cholecalciferol (vitamin D3) 50 4,000 unit PO BID 03/03/22 10/08/23 History mcg (2,000 unit) capsule nitroglycerin 0.4 mg sublingual 0.4 mg sublingual ONCE PRN chest 01/21/23 10/08/23 Rx tablet (Nitrostat) pain #1 btl furosemide 20 mg tablet 20 mg PO DAILY PRN edema #60 tabs 02/05/23 10/08/23 Rx aspirin 81 mg tablet,delayed 81 mg PO QAM 03/24/23 10/08/23 History release (Adult Low Dose Aspirin) metoprolol succinate 25 mg 50 mg (2 x 25 mg) PO QAM #180 tabs 04/28/23 10/08/23 Rx tablet,extended release 24 hr rosuvastatin 5 mg tablet 5 mg PO QAM #90 tabs 04/28/23 10/08/23 Rx spironolactone 25 mg tablet 25 mg PO QAM #90 tabs 04/28/23 10/08/23 Rx losartan 25 mg tablet (Cozaar) 25 mg PO QAM 09/01/23 10/08/23 History ciprofloxacin HCl 500 mg tablet 500 mg PO UD 10/08/23 10/08/23 History (Cipro) Past Med/Surg History Problem List (Updated 10/08/23 @ 16:32 by Aurelio Fraire PA-C) History of ischemic cardiomyopathy 07/2018. LORD -> lad, svg ->OM1, svg->rca x3 vessels ([facility]) Hypertension Acute respiratory failure with hypoxia Hypoxia (Acute) Acute UTI (Acute) Hematuria (Acute) Pyelonephritis (Acute) Blood in urine Right radial fracture (Acute ~10/07/23) acute nondisplaced intra-articular distal right radial fracture Contusion (Acute) Fall (Acute) Fracture of wrist (Acute 10/07/23) Fell while trying to help her while he was falling.acute nondisplaced intra-articular distal right radial fracture Pulmonary nodule Back skin lesion Chronic systolic (congestive) heart failure Impacted cerumen, right ear Sensorineural hearing loss (SNHL) of both ears Otalgia of right ear Tinnitus of both ears Parotid nodule Allergic rhinitis with postnasal drip Chronic bronchitis Current smoker Hyperlipidemia Abnormal diffusion capacity determined by pulmonary function test Personal history of nicotine dependence Ischemic cardiomyopathy Abnormal CT scan, colon Hematochezia 06/2019 -> related to anticoagulants, stopped and no futher problems. 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 LORD -> lad, svg ->OM1, svg->rca x3 vessels ([facility]) GERD without esophagitis (Acute) Osteoporosis (Acute) Personal history of noncompliance with medical treatment, presenting hazards to health (Acute) Pulmonary emphysema (Acute) Status post aorto-coronary artery bypass graft (Chronic) Patent foramen ovale (Chronic) Vitamin D deficiency (Chronic) Multiple pulmonary nodules (Chronic) Pre-diabetes (Chronic) Bradycardia pt denies Mitral regurgitation COPD (chronic obstructive pulmonary disease) (Chronic) no inhalers Medical History (Updated 10/08/23 @ 16:32 by Aurelio Fraire PA-C) Vitamin D deficiency Diabetes PFO (patent foramen ovale) Parotid nodule Osteoporosis Multiple pulmonary nodules follows w/ Dr Desouza Mitral regurgitation GERD (gastroesophageal reflux disease) Current smoker COPD (chronic obstructive pulmonary disease) Chronic systolic (congestive) heart failure Chronic bronchitis Macular degeneration Chronic cough History of COVID-19 tested positive 12/09/22 at [facility] : muscle aches and fatigue. no current issues Depression controlled without medication Anxiety controlled without medication Acute systolic CHF (congestive heart failure) (2019) hx Emphysema of lung hx of oxygen use --- refuses to wear, states she has no problems breathing. Surgical History History of coronary artery bypass graft x 3 07/2018. LORD -> lad, svg ->OM1, svg->rca x3 vessels ([facility]) History of cardiac cath 07/2018. no stents History of cataract surgery right eye/left eye History of colonoscopy History of total hysterectomy Hx of tubal ligation Family History Mother Myocardial infarction Pulmonary embolism Uncle Myocardial infarction Other No family history of adverse response to anesthesia Denies family history of Ovarian cancer Prostate cancer Breast cancer Colorectal cancer Social History Smoking Status: Never smoker Tobacco Type: Cigarettes Age Started Using Tobacco: 12; packs per day: 0.5; Cigarettes Per Day: 10 per day -advised; Second Hand Exposure: No; Do You Dip or Chew Tobacco: No; Hx Alcohol Use: Yes Alcohol type: beer Alcohol Intake Frequency: Monthly or Less Alcohol Intake Frequency Comment: rare Hx Substance Use: No Preferred Language: Portuguese Communication Ability: Effective Visual Impairment: Limited Hearing Ability: Normal Bat Boy/Girl Required: No Beliefs That Will Affect Care: None marital status: Current Living Situation: Spouse current occupational status: retired current occupation: [employer], [employer] Feels Safe at Home: Yes Childhood Exposure to Second-Hand Smoke: Yes Diet: low salt caffeine: Yes during the past year weight has: remained stable Dental Care, Regularly: No Physical Activity Frequency: Daily Seatbelt Use: always Sunscreen Use: No Assistive Devices: Denture - Upper, Denture - Lower and Glasses Review of Systems Review of Systems: See HPI above Physical Exam Physical Exam: General: no acute distress; pleasant affect; non-toxic appearing; well- nourished; cooperative; SpO2 97% on 3L NC HEENT: normocephalic, atraumatic; no scleral icterus; PERRLA; vision and hearing grossly intact Neck: supple; no lymphadenopathy; trachea midline RUE: Right wrist/forearm casted; mild ecchymosis on right thumb; patient demonstrates ability to wiggle right fingers, and reports intact and symmetric sensation in the fingers bilaterally Skin: warm, dry without signs of tenting; no cyanosis; no rashes, bruising, lesions, or erythema noted CV: chest wall NTP; RRR; S1/S2 normal; no murmurs/rubs/gallops; pulses intact and symmetric at radial, DP, and PT Lungs: no acute respiratory distress; symmetrical chest wall expansion; diminished breath sounds across all lung starr w/o adventitious sounds; no whee zing ABD: Soft, NTP; no suprapubic tenderness BS present; no rebound/guarding; no distention MSK: no tics or fasciculations; no edema noted in the LEs b/l, nonerythematous Neuro: A&Ox3; normal mood and affect; fluent speech; no focal deficits; sensation grossly intact in the UE/LEs b/l Results & Data Results & Data Vital Signs (Past 12 Hours) Vital Signs Temp Pulse Resp BP Pulse Ox O2 Del Method O2 Flow Rate 10/08/23 15:11 84 20 10/08/23 15:08 69 10/08/23 14:30 145/81 H 10/08/23 14:24 75 24 95 Nasal Cannula 3 10/08/23 14:09 75 19 94 Nasal Cannula 3 10/08/23 14:01 157/66 H 10/08/23 13:54 36.8 C 10/08/23 13:42 71 22 97 Nasal Cannula 3 10/08/23 13:35 74 L Nasal Cannula 0 10/08/23 13:32 146/73 H 10/08/23 13:12 66 16 93 Room Air 10/08/23 13:00 64 95 Room Air 10/08/23 12:53 69 10/08/23 12:51 67 14 95 Room Air 10/08/23 12:49 133/76 Laboratory Results Abnormal lab results 10/08/23 10/08/23 10/08/23 Range/Units 12:40 12:44 13:10 WBC 12.75 H (4.8-10.8) K/ul RDW Std Deviation 49.5 H (36.4-46.3) fL Neut # (Auto) 10.12 H (1.40-6.50) K/uL [place] # (Auto) 0.86 H (0.11-0.59) K/uL POC Sodium 133 L (135-144) mmol/L Sodium 134 L (136-145) mmol/L POC Potassium 5.7 H (3.3-5.0) mmol/L POC Anion Gap 8.0 L (16-25) mmol/L POC BUN 28 H (7-18) mg/dl BUN/Creatinine Ratio 23.5 H (10-20) POC Ioniz Calcium Joan 1.09 L (1.12-1.32) mmol/l Urine Appearance Cloudy A (Clear) Urine Protein 2+ H (Negative) Urine Blood 3+ H (Negative) Urine Nitrite Positive A (Negative) Ur Leukocyte Esterase 3+ H (Negative) Urine WBC (Auto) >50 H (0-5) /hpf Urine RBC (Auto) >20 H (0-2) /hpf U Hyaline Cast (Auto) 3-5 H (0-2) /lpf U Epithel Cells (Auto) 3-5 H (0-2) /hpf Urine Bacteria (Auto) 3+ H (None Seen) Diagnostic Findings Abdomen/Pelvis CT 10/08/23 12:53 CT abd pelvis IV con only CLINICAL HISTORY: hematuria s/p fall TECHNIQUE: Helical axial images of the abdomen and pelvis were obtained and displayed. Automated dose lowering techniques and/or adjustment according to patient size were utilized for this exam. This exam was performed with intravenous contrast. COMPARISON: Comparison is made to CT abdomen pelvis 06/30/2019 FINDINGS: Lower chest: For findings above the diaphragm, please see CT chest performed day. Liver: Focal fatty changes are noted about the falciform ligament. Gallbladder and biliary tree: No calcified gallstones. Normal caliber wall. No intra- or extrahepatic biliary ductal dilation. Pancreas: Unremarkable, no focal lesions. Spleen: Unremarkable. Adrenals: Nodularity of the left adrenal gland is unchanged. Kidneys and ureters: Renal cysts are seen. There is enhancement of the bilateral ureters without evidence of obstruction. Bladder: Diffuse homogeneous wall thickening is seen. Reproductive organs: Patient is status post hysterectomy. Bowel: Diverticulosis is seen without diverticulitis. The appendix is normal. Lymph nodes Retroperitoneal: Unremarkable. Pelvic: Unremarkable. Mesenteric: Unremarkable. Peritoneum: Normal. Vessels: Atherosclerotic calcifications are seen. Infrarenal aortic aneurysm measures up to 27 mm in diameter. Abdominal wall: Unremarkable. Bones: Degenerative changes in the visualized spine. IMPRESSION: 1. No evidence of acute fracture. 2. Enhancement of the bilateral ureteral rosado which may represent ascending infection in this patient with a thickened bladder as well. Correlation with urinalysis is recommended. ACT 112: Negative or not required by law. Electronically signed by: Shane Vicente M.D. 10/08/2023 1:[address] 10/08/23 12:53 CT OF THE CERVICAL SPINE WITHOUT CONTRAST CLINICAL HISTORY: fall COMPARISON STUDY: PET/CT May 07, 2021. TECHNIQUE: Helical axial images of the cervical spine were obtained without IV contrast. Sagittal and coronal reconstructions were viewed. Automated exposure control was utilized for the study. A dose lowering technique was utilized adhering to the principles of ALARA. FINDINGS: Alignment of the cervical spine is anatomic. Vertebral body heights are maintained. No acute cervical spine fracture or subluxation is present. There is no prevertebral edema. Facet joints are intact. There is severe multi level facet arthrosis disc space narrowing within the cervical spine. IMPRESSION: No acute cervical spine fracture or subluxation. ACT 112: Negative or not required by law. Electronically signed by: Nito Leahy M.D. 10/08/2023 1:[address] 10/08/23 12:53 CT chest diagnostic w con CLINICAL HISTORY: fall TECHNIQUE: Multidetector row helical CT of the chest was performed with intravenous contrast. Coronal and sagittal reformations were obtained. Automated dose lowering techniques and/or adjustment according to patient size were utilized for this exam. Comparison: Comparison is made to chest 08/19/2023 FINDINGS: Lungs and pleura: Interstitial thickening and bronchial wall thickening are unchanged from prior exam with some emphysema is noted peripherally. Densities in the right lower lung are unchanged measuring up to 2 cm (series 10 image 95). Heart and pericardium: Heart size is normal. No pericardial effusion. Vessels: Severe atherosclerotic changes in the aorta and coronary arteries. Mediastinum and yuni: Unremarkable. Chest wall and lower neck: Unremarkable. Abdomen: For findings below the diaphragm, please refer to CT of the abdomen dated the same. Bones: Degenerative changes of the thoracic spine. Old healed rib fractures are seen on the right and there are subacute appearing left rib fractures IMPRESSION: Subacute appearing left rib fractures without acute abnormality. Pulmonary nodular densities are unchanged from prior exam. Stable emphysema. ACT 112: Negative or not required by law. Electronically signed by: Shane Vicente M.D. 10/08/2023 1:[address] 10/08/23 12:[address] DOSE: 2903.58 mGy.cm HISTORY: Fall. TECHNIQUE: Multiaxial CT images of the head were performed without the use of intravenous contrast. Automated exposure control was utilized for this study. A dose lowering technique was utilized adhering to the principles of ALARA. Comparison: None. Findings: The paranasal sinuses and mastoid air cells are clear. The calvarium and skull base are intact. The ventricles and sulci are within normal limits. There is no mass, hematoma, midline shift, or acute infarct. Impression: No acute intracranial abnormality. ACT 112: Negative or not required by law. Electronically signed by: Aurelio Coughlin M.D. 10/08/2023 2:14 PM ECG Additional Comments: ECG revealed NSR at 61 bpm; QTc 440 Code Status & VTE Plan Code Status Full code (discussed with patient and patient's at bedside) VTE Prophylaxis Plan VTE Prophylaxis will be ordered: Yes Supervising Physician Co-Signing Physician Notes Patient seen and examined, chart reviewed, case discussed with Aurelio Fraire PA-C and I agree with the assessment and plan as above except as otherwise noted Labs and images reviewed Patient presents for evaluation of dysuria and hematuria. UA infected appearing, sent for culture continued on Rocephin. She does have history of COPD with oxygen levels borderline at 88-90% not on home oxygen at home; however was acutely hypoxic in the ER at 74% and remains on 3 L nasal cannula on reassessment with SpO2 ranging 92-97%. Titrated down to goal of 89%. Diminished, but without obvious wheezing or COPD exacerbation. D-dimer elevated, patient pending CTA. She does not have any pleuritic or inspiratory pain, risk factors include recent trauma (distal radial fracture;. No leg pain/swelling. At bedside lungs are diminished but clear and there is no wheezing. Fingertips of the right hand are with intact sensation, cap refill is brisk, and is able to wiggle fingers without difficulty. Agree with above. PG Care Time/CCT Total # of Minutes Spent Total Time Spent with Patient: Total time spent is greater than 50% in coordination of care (as documented) at patient's floor/unit and/or counseling patient: [place] [address] INT INP/OBS CARE 3/75MIN Patient Type Established History Comprehensive Exam Comprehensive Medical Decision Making High Complexity Diagnoses Hematuria R31.9 Hematuria type: unspecified type Acute UTI N39.0 Acute respiratory failure with hypoxia J96.01 Right radial fracture S52.91XA Hypertension I10 COPD (chronic obstructive pulmonary disease) J44.9 History of ischemic cardiomyopathy Z86.79 Hx of CABG Z95.1 (1) Hematuria Hematuria type: unspecified type Qualified Code(s): R31.9 - Hematuria, unspecified
[2023-10-08 15:31] LABS: Troponin I High Sensitivity 16.8 pg/ml (0-14)
[2023-10-08] MEDS: ACETAMINOPHEN 325 MG TAB PO STA (15:34)
[2023-10-08 15:40] LABS: Adenovirus PCR Not Detected (NotDetected); Bordetella parapertussis PCR Not Detected (NotDetected); Bordetella pertussis PCR Not Detected (NotDetected); Chlamydia pneumoniae PCR Not Detected (NotDetected); Coronavirus 229E PCR Not Detected (NotDetected); Coronavirus CoV-2 (COVID19)PCR Not Detected (NotDetected); Coronavirus HKU1 PCR Not Detected (NotDetected); Coronavirus NL63 PCR Not Detected (NotDetected); Coronavirus OC43PCR Not Detected (NotDetected); Human Metapneumovirus PCR Not Detected (NotDetected); Influenza A PCR Not Detected (NotDetected); Influenza B PCR Not Detected (NotDetected); Mycoplasma pneumoniae PCR Not Detected (NotDetected); Parainfluenza Virus 1 PCR Not Detected (NotDetected); Parainfluenza Virus 2 PCR Not Detected (NotDetected); Parainfluenza Virus 3 PCR Not Detected (NotDetected); Parainfluenza Virus 4 PCR Not Detected (NotDetected); Respiratory Syncytial VirusPCR Not Detected (NotDetected); Rhinovirus/Enterovirus PCR Not Detected (NotDetected)
[2023-10-08 17:07] LABS: D Dimer 1180 ug/L FEU (0-500)
[2023-10-08] MEDS: OPTIRAY 320 125ml IV ONE (18:22)
--- NOTE | 2023-10-08 19:20 | CT Scan Report ---
CT ANGIOGRAPHY OF THE CHEST, PULMONARY EMBOLUS PROTOCOL CLINICAL HISTORY: Elevated d-dimer. Evaluate for pulmonary embolus. COMPARISON STUDY: Chest radiograph September 01, 2023. Chest CT performed earlier today. Chest CT July. TECHNIQUE: Following IV administration of 75 mL of Optiray, helical axial images of the chest were ob tained utilizing the pulmonary embolus protocol. Maximal intensity projections and sagittal and mike nal reformats were viewed on an independent 3D workstation. IV contrast was administered without com plication. Automated exposure control was utilized for the study. A dose lowering technique was uti lized adhering to the principles of ALARA. CT DOSE: 698.1 mGy.cm FINDINGS: No pulmonary emboli are identified. There are median sternotomy wires and postoperative fi ndings from bypass grafting. The heart is moderately enlarged. Prominent mediastinal lymph nodes clay in unchanged. There is extensive plaque within the thoracic aorta. Opacification is suboptimal but no thoracic aortic dissection is identified. There is emphysema. No consolidation is identified to sugg est pneumonia. Subpleural lingular densities favor atelectasis. Previously described 1.9 cm subpleura l nodular opacity within the superior segment of the right lower lobe on image 144 of [address] of August 19, 2023. Additional smaller pulmonary nodules are also unchanged. IMPRESSION: 1. No pulmonary emboli identified. 2. No acute intrathoracic findings. 3. Emphysema. 4. No change in an indeterminate 2 cm subpleural nodular opacity within the right lower lobe since CT of August 19, 2023. 5. Cardiomegaly. ACT 112: Negative or not required by law. Electronically signed by: Nito Leahy M.D. 10/08/2023 7:17 PM
[2023-10-09 03:33] VITALS: TEMP 97.7
--- NOTE | 2023-10-09 07:16 | Hospitalist Progress Note ---
Date of Service October 09, 2023 Assessment & Plan (1) Acute UTI: Plan: UA positive on arrival associated gross hematuria , aspirin now on hold Rocephin 2000 mg IV q24h Follow current UCx (2) Acute respiratory failure with hypoxia: Plan: acute on chronic respiratory failure with hypoxia Patient does have history of COPD and reports normal saturation around 88%. Not on supplemental oxygen at baseline Chest CTA no pulmonary embolism, copd, stable pulmonary nodule Supplemental oxygen as needed to maintain SpO2 89-92% (3) Right radial fracture: Plan: Remote hx of fall with distal right radial fracture on 10/06 Arm is currently in a cast Acetaminophen as needed for pain (4) History of ischemic cardiomyopathy: Plan: Previous history of CABg 2019 last EF 04/17 50%, mild MR. this is improved EF (01/13 was 35-40) Continue metoprolol, losartan she follows daily weights and doses diuretics appropriately Plan Full code VTE PPx: Teds; hold chemical DVT PPx in the setting of gross hematuria Admission and Anticipated Discharge Date Admission Date: October 08, 2023 Results & Data Results & Data Vital Signs (Past 12 Hours) Vital Signs Temp Pulse Pulse Resp BP Pulse Ox O2 Del Method 10/09/23 03:32 97.7 F 60 18 136/66 96 Nasal Cannula 10/08/23 23:19 97.9 F 64 18 136/70 96 Nasal Cannula 10/08/23 21:56 57 L 10/08/23 19:10 Nasal Cannula O2 Flow Rate 10/09/23 03:32 2 10/08/23 23:19 2 10/08/23 21:56 10/08/23 19:10 2 PG Care Time/CCT Total # of Minutes Spent Total Time Spent with Patient: Total time spent is greater than 50% in coordination of care (as documented) at patient's floor/unit and/or counseling patient: Coding Diagnoses Acute UTI N39.0 Acute respiratory failure with hypoxia J96.01 Right radial fracture S52.91XA History of ischemic cardiomyopathy Z86.79
[2023-10-09 07:20] LABS: Basophils # (auto) 0.03 K/uL (0.00-0.20); Basophils % (auto) 0.4 %; Eosinophils # (auto) 0.17 K/uL (0.00-0.50); Eosinophils % (auto) 2.4 %; Hematocrit (blood only) 38.6 % (37.0-47.0); Hemoglobin 12.6 g/dl (12.0-16.0); Immature Granulocytes # (auto) 0.02 K/uL (0.01-0.20); Immature Granulocytes % (auto) 0.3 %; Lymphocytes # (auto) 1.34 K/uL (1.20-3.40); Lymphocytes % (auto) 18.7 %; Mean Corpuscular Hgb Conc 32.6 g/dL (32.0-36.0); Mean Corpuscular Volume 94.8 fL (80.0-100.0); Mean Platelet Volume 10.4 fL (9.4-12.4); Monocytes # (auto) 0.58 K/uL (0.11-0.59); Monocytes % (auto) 8.1 %; Neutrophils # (auto) 5.03 K/uL (1.40-6.50); Neutrophils % (auto) 70.1 %; Platelet Count 240 K/uL (130-400); RDW Coefficient of Variation 14.1 % (11.5-14.5); RDW Standard Deviation 48.9 fL (36.4-46.3); Red Blood Count 4.07 M/uL (4.20-5.40); White Blood Count 7.17 K/ul (4.8-10.8)
[2023-10-09 07:32] VITALS: BP 117/63; PULSE 57; RESP 16; O2SAT 91
[2023-10-09 07:45] LABS: BUN Creatinine Ratio 23.8 (10-20); Calcium 8.3 mg/dl (8.6-10.3); Creatinine Clr Calc Pharmacy 50.4 ml/min; Est GFR (African American) 81.8 ml/min; Est GFR (Non-African American) 70.6 ml/min
[2023-10-09] MEDS: ACETAMINOPHEN 325 MG TAB PO PRN (07:51)
[2023-10-09] MEDS: ROSUVASTATIN CALCIUM 5 MG TAB PO SCH (08:24)
[2023-10-09] MEDS: METOPROLOL SUCC 50MG EXT REL TAB PO SCH (08:24)
[2023-10-09] MEDS: SPIRONOLACTONE 25 MG TAB PO SCH (08:24)
[2023-10-09] MEDS: LOSARTAN POTASSIUM 25 MG TAB PO SCH (08:24)
--- NOTE | 2023-10-09 08:41 | Electrocardiogram Report ---
Test Reason : Blood Pressure : */* mmHG Vent. Rate : 61 BPM Atrial Rate : 61 BPM P-R Int : 164 ms QRS Dur : 106 ms QT Int : 438 ms P-R-T Axes : 60 -28 185 degrees QTcB Int : 440 ms Normal sinus rhythm Left ventricular hypertrophy with repolarization abnormality ST depression in Inferior leads , consider ischemia Abnormal ECG When compared with ECG of 30-Jun-2019 05:56, ST depression in Inferior leads now present Confirmed by Calixto Coy ([id number]) on 10/09/2023 8:40:41 AM Referred By: REFERRED SELF Confirmed By: Calixto Coy
--- NOTE | 2023-10-09 10:46 | Discharge Summary ---
Discharge Summary Date of Service October 09, 2023 Principal Dx & Hospital Course #1 = Principal Diagnosis (1) Acute UTI: UA positive on arrival associated gross hematuria , aspirin resumes at discharge Rocephin 2000 mg IV transtion to Ceftin bid for 10 days treatment for Gram negative pyelonephritis Follow current UCx call if sensitivities change (2) Acute respiratory failure with hypoxia: acute on chronic respiratory failure with hypoxia Patient does have history of COPD and reports normal saturation around 88%. Not on supplemental oxygen at baseline Chest CTA no pulmonary embolism, copd, stable pulmonary nodule Supplemental oxygen as needed to maintain SpO2 89-92% (3) Right radial fracture: Remote hx of fall with distal right radial fracture on 10/06 Arm is currently in a cast good pain control with Acetaminophen (4) History of ischemic cardiomyopathy: Previous history of CABg 2019 last EF 04/17 50%, mild MR. this is improved EF (01/13 was 35-40) Continue metoprolol, losartan she follows daily weights and doses diuretics appropriately Plan Full code discharge home Notes For Next Care Provider need to have good follow up for orhto Admission HPI Per Admitting Provider Zahira is a 78-year-old female with PMH of COPD, mitral regurg, PFO, osteoporosis, CABG, ischemic cardiomyopathy, HLD, and CHF. She presented for gross hematuria that began the evening of 10/06. She denies any urinary symptoms such as burning with urination, dysuria, or suprapubic tenderness. She started having dark pink urine evening, then developed d "red/black urine" at her doctor's office when providing a sample on Wednesday morning at 10:30 AM. No prior episodes of hematuria to her knowledge. She does have a history of yeast infections, but not UTIs. Additionally, the patient reports that she fell on Thursday 10/05 and broke her right wrist. Patient is right-handed. This occurred while she was in the kitchen, her tripped and fell into her and she landed on her buttocks and slammed backwards into the fridge. No head strike. No LOC. Patient is not on blood thinners. At present, she endorses achy pain in her right wrist which she rates 6/10. No radiation up her arm. She has been taking Tylenol at home for the pain. Patient is a current everyday tobacco cigarette smoker; 0.5 PPD; declines nicotine patch on admission. She denies any recent alcohol use. No supplemental oxygen at baseline or CPAP at night. No history of DVT/PE. No sick contacts. She took her regular morning medications today. She reports inconsistent compliance with taking aspirin, but took this morning; she takes aspiring for primary prevention; no history of heart stents, per patient. Patient's SpO2 was 97% on 3L NC. Vitals otherwise stable. ED course: NSS 1000 mL IV Rocephin 2000 mg IV ROS: Patient endorses productive cough (chronic), right wrist pain, and new onset hematuria. Patient denies fever, chills, night-sweats, ARZOLA, dizziness/lightheadedness, chest pain, SOB, pleuritic CP, hemoptysis, abd pain, N/V/D, changes in urinary/bowel habits (besides hematuria), blood in stool, saddle anesthesia, lower back pain, or numbness/tingling in the arms or legs. Discharge Exam awake and appropriate fingers on right hand with good sensation cardiac is regular lungs are clear Discharge Plan Discharge Items Patient Disposition: Home - Self-Care Reason For Visit: UTI, HEMATURIA Discharge Diagnosis: uti with bleeding , possible pyelonephritis right wrist fracture Activity: Resume your previous activity Non-emergency contact: Primary Care Provider and Specialist Call non-emergency contact if: your symptoms worsen Follow-up/Referrals: Hang Gramajo MD [Primary Care Provider] - Diet: Regular Addtl Attending Provider Instructions: please complete your antibiotics, if you need to have then changed based on the urine bacteria, we will call you at home your course of antibiotics are a bit longer as on your cat scan there is some suggenstion of possible kidney infection along with bladder infection please continue to follow the recommendations for your right wrist fracture incl uding follow up Pending Studies at Discharge: Yes Studies:: urine culture Stand-Alone Forms: My [employer], Smoking Cessation Medications and DC Order Prescriptions: New cefuroxime axetil 250 mg tablet 250 mg PO BID 10 Days Qty: 20 0RF Continued nitroglycerin [Nitrostat] 0.4 mg tablet, sublingual 0.4 mg sublingual ONCE PRN (Reason: chest pain) Qty: 1 3RF rosuvastatin 5 mg tablet 5 mg PO QAM Qty: 90 3RF spironolactone 25 mg tablet 25 mg PO QAM Qty: 90 3RF metoprolol succinate 25 mg tablet extended release 24 hr 50 mg PO QAM Qty: 180 3RF Rx Instructions: qam cholecalciferol (vitamin D3) 50 mcg (2,000 unit) capsule 4,000 unit PO BID furosemide 20 mg tablet 20 mg PO DAILY PRN (Reason: edema) Qty: 60 5RF PreserVision AREDS [id number] Tablet 1 tab PO BID aspirin [Adult Low Dose Aspirin] 81 mg tablet,delayed release (DR/EC) 81 mg PO QAM Rx Instructions: qam losartan [Cozaar] 25 mg tablet 25 mg PO QAM Discontinued ciprofloxacin HCl [Cipro] 500 mg tablet 500 mg PO UD Rx Instructions: 500 mg po bid per pt she said she doesn't take the medication but it looks to have been jus t prescribed today 10/07 Discharge Orders: Discharge Order (Routine); Ordered 10/09/23 Ordered By: Arcadio Andrews/Other Patient Handouts: Urinary Tract Infections in Women, Falls Prevent Use Cane Walker Admission Data Admit Date/Time: 10/08/23 16:00 Attending Provider: Arcadio Mishra Admit Provider: Salvador Peck Primary Care Provider: Hang Gramajo Other Providers: Salvador Peck Hospital Stay Data Consultations 10/08/23 14:01 ED Decision to Admit Stat Diagnostic Imagining Performed 10/08/23 12:53 CT Abd and Pelvis [CT abd pelvis IV con only] Stat CT cervical spine wo con Stat CT chest diagnostic w con Stat CT head/brain wo con Stat 10/08/23 17:08 CT for pulmonary embolism PE [CT angio chest PE protocol] Stat Pending Results Patient Have Any Pending Studies at Discharge: Yes Discharge Instructions Given to Patient (Per Discharging Provider) please complete your antibiotics, if you need to have then changed based on the urine bacteria, we will call you at home your course of antibiotics are a bit longer as on your cat scan there is some suggenstion of possible kidney infection along with bladder infection please continue to follow the recommendations for your right wrist fracture including follow up Total Time Total Time Spent Total Time Spent (In Minutes): greater than 30 minutes required to create this discharge Coding Level of Care Code 83633 INP/OBS DISCH >30 MIN Diagnoses Acute UTI N39.0 Acute respiratory failure with hypoxia J96.01 Right radial fracture S52.91XA History of ischemic cardiomyopathy Z86.79
[2023-10-09] MEDS ORDERED: cefTRIAXone SODIUM 2,000 MG/50 ML BAG IV SCH (14:00)
== END 2023-10-09 10:25 | disposition home or self-care (01) | DRG 689 ==
LOC: SUATTDRO → ED 12:23 → SUATTDRO 16:00 → 2N 16:00

== ENCOUNTER 2024-11-06 12:11 | Inpatient (IN) ==
[2024-11-06 14:13] LABS: Hematocrit (blood only) 44.4 % (37.0-47.0); Hemoglobin 15.0 g/dl (12.0-16.0); Immature Granulocytes # (auto) 0.05 K/uL (0.01-0.20); Immature Granulocytes % (auto) 0.4 %; Mean Corpuscular Hemoglobin 31.0 pg (25.0-34.0); Mean Corpuscular Volume 91.7 fL (80.0-100.0); Platelet Count 231 K/uL (130-400); RDW Standard Deviation 49.1 fL (36.4-46.3); Red Blood Count 4.84 M/uL (4.20-5.40); White Blood Count 11.31 K/ul (4.8-10.8)
--- NOTE | 2024-11-06 14:26 | XRay Report ---
XR chest 1V not portable CLINICAL HISTORY: low sats COMPARISON STUDY: 11/04/2023 FINDINGS: Stable CABG. Stable cardiomegaly with mild pulmonary vascular congestion. There is mildly i ncreased stranding opacity at the lung bases. No other consolidation or pleural effusion seen. No pne umothorax. The known right lung nodule is not well seen by plain film. IMPRESSION: 1. Atelectasis versus early pneumonia in the lung bases. 2. Stable mild CHF. ACT 112: Negative or not required by law. Electronically signed by: Bryant Roman M.D. 11/06/2024 2:25 PM
[2024-11-06 14:34] LABS: Alanine Aminotransferase 9.0 U/L (7-52); Albumin Globulin Ratio 1.0 (0.9-2); Alkaline Phosphatase 76.0 U/L (34-104); Anion Gap 8.0 (3-11); Bilirubin,Total 0.6 mg/dl (0.2-1.0); Blood Urea Nitrogen 17.0 mg/dl (6-23); Calcium 9.3 mg/dl (8.6-10.3); Carbon Dioxide 27.0 mmol/L (21-32); Chloride 98.0 mmol/L (98-107); Creatinine Clr Calc Pharmacy 45.8 ml/min; Globulin 3.8 gm/dl (2.5-4.0); Glucose 119.0 mg/dl (70-99(Fasting)); Potassium 3.8 mmol/L (3.5-5.1); Sodium 133.0 mmol/L (136-145); Total Protein 7.5 gm/dl (6.0-8.3)
[2024-11-06 14:49] LABS: Influenza A virus by PCR Negative (Neg); Influenza B virus by PCR Negative (Neg); SARS CoV2 RNA(COVID-19) Ceph NEGATIVE (Negative)
--- NOTE | 2024-11-06 15:06 | Emergency Department Note ---
History of Present Illness General Chief Complaint: Illness Stated Complaint: PRESSURE AROUND EYES, COUGHING, REF BY DOC Time Seen by Provider: 11/06/24 14:53 History of Present Illness Provider Complaint: + cough, + nasal congestion and + sinus pain Onset (ago): 1 week(s) Duration: + progressively worsening Relieved By: + nothing Exacerbated By: + nothing Able to tolerate fluids by mouth: Yes Associated symptoms: + cough and + shortness of breath; no fever, no myalgias, no chest pain, no abdominal pain, no nausea, no vomiting, no diarrhea or no dysuria Home Medications Medication Instructions Recorded Confirmed Type vitamins A,C,R-eeps-kaeqyp 2,148 1 tab PO BID 07/21/18 11/06/24 History mcg-113 mg-45 mg-17.4 mg tablet (PreserVision AREDS) cholecalciferol (vitamin D3) 50 4,000 unit PO BID 03/03/22 11/06/24 History mcg (2,000 unit) capsule nitroglycerin 0.4 mg sublingual 0.4 mg sublingual ONCE PRN chest 01/21/23 11/06/24 Rx tablet (Nitrostat) pain #1 btl aspirin 81 mg tablet,delayed 81 mg PO QAM 03/24/23 11/06/24 History release (Adult Low Dose Aspirin) furosemide 20 mg tablet 20 mg PO DAILY PRN edema #60 tabs 03/14/24 11/06/24 Rx levocetirizine 5 mg tablet 5 mg PO DAILY PRN allergy symptoms 04/25/24 11/06/24 Rx #90 tabs metoprolol succinate 25 mg 25 mg PO QAM #90 tabs 06/27/24 11/06/24 Rx tablet,extended release 24 hr rosuvastatin 5 mg tablet 5 mg PO QAM #90 tabs 06/27/24 11/06/24 Rx spironolactone 25 mg tablet 25 mg PO QAM #90 tabs 06/27/24 11/06/24 Rx Allergies Allergy/AdvReac Type Severity Reaction Status Date / Time simvastatin [From Zocor] AdvReac Intermediate Myalgia Verified 11/06/24 16:29 Past Med/Surg History Problem List (Updated 11/06/24 @ 16:34 by Sarmad Escobedo MD) Hypoxia (Acute) Pneumonia (Acute) Hypoxia Hypertension Heart failure with improved ejection fraction (HFimpEF) Primary cancer of right lower lobe of lung (Chronic 11/04/23) 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 GERD without esophagitis (Acute) Osteoporosis (Chronic) Personal history of noncompliance with medical treatment, presenting hazards to health (Acute) Pulmonary emphysema (Chronic) Status post aorto-coronary artery bypass graft (Chronic) Patent foramen ovale (Chronic) Vitamin D deficiency (Chronic) Multiple pulmonary nodules (Chronic) Pre-diabetes (Chronic) Bradycardia pt denies Mitral regurgitation Medical History Abnormal CT scan, colon Right radial fracture (~10/07/23) acute nondisplaced intra-articular distal right radial fracture History of ischemic cardiomyopathy 07/2018. LORD -> lad, svg ->OM1, svg->rca x3 vessels ([facility]) COPD (chronic obstructive pulmonary disease) no inhalers Acute respiratory failure with hypoxia Vitamin D deficiency Diabetes PFO (patent foramen ovale) Parotid nodule Osteoporosis Multiple pulmonary nodules follows w/ Dr Desouza Mitral regurgitation GERD (gastroesophageal reflux disease) Current smoker COPD (chronic obstructive pulmonary disease) Chronic systolic (congestive) heart failure Chronic bronchitis Macular degeneration Chronic cough History of COVID-19 tested positive 12/09/22 at [facility] : muscle aches and fatigue. no current issues Depression controlled without medication Anxiety controlled without medication Acute systolic CHF (congestive heart failure) (2018) hx Emphysema of lung hx of oxygen use --- refuses to wear, states she has no problems breathing. Surgical History Hx of CABG 07/2018. LORD -> lad, svg ->OM1, svg->rca x3 vessels ([facility]) History of bronchoscopy (09/01/23) History of coronary artery bypass graft x 3 07/2018. LORD -> lad, svg ->OM1, svg->rca x3 vessels ([facility]) History of cardiac cath 07/2018. no stents History of cataract surgery right eye/left eye History of total hysterectomy Hx of tubal ligation Family History Mother Myocardial infarction Pulmonary embolism Uncle Myocardial infarction Father No problems noted. Daughter Myocardial infarction with stent Sister No problems noted. Other No family history of adverse response to anesthesia Denies family history of Ovarian cancer Prostate cancer Colorectal cancer Social History Smoking Status: Current every day smoker Tobacco Type: Cigarettes Age Started Using Tobacco: 12; packs per day: 0.5; Cigarettes Per Day: 10; Second Hand Exposure: Yes; Do You Dip or Chew Tobacco: No; Hx Alcohol Use: No Hx Substance Use: No Preferred Language: [place] Communication Ability: Effective Visual Impairment: Limited Hearing Ability: Normal [employer] Required: No Beliefs That Will Affect Care: None marital status: Current Living Situation: Spouse and Homeless current occupational status: retired current occupation: [email or web address] How many Children do You have: 3 Feels Safe at Home: Yes Childhood Exposure to Second-Hand Smoke: Yes Diet: low salt caffeine: Yes during the past year weight has: remained stable Dental Care, Regularly: No Physical Activity Frequency: 1-2 Times per Week Seatbelt Use: always Sunscreen Use: No Assistive Devices: Denture - Upper, Denture - Lower and Glasses Physical Exam 2 Vital Signs: Vital Signs - 24 hr 11/06/24 12:39 11/06/24 15:07 11/06/24 15:07 Temperature 36.5 C Temperature Source Skin Pulse Rate 81 71 Pulse Rate [Apical ] Pulse Rate from Sp O2 Sensor Pulse Strength [Ap ical] Respiratory Rate 20 20 Respiratory Effort / Characteristics Non-Labored Sponta neous Respiratory Depth Normal Respiratory Patter n Regular Blood Pressure 125/75 114/64 114/64 Blood Pressure [Ri ght Arm] Blood Pressure Davina n 91 73 73 Blood Pressure Davina n [Right Arm] Pulse Oximetry 82 L 93 Oxygen Delivery Me thod Room Air Nasal Cannula Oxygen Flow Rate 4 Sepsis Recent Feve r Within 48 Hours No Sepsis New/Unexpla ined Change in Men angus Status N/A Sepsis Action Take n by Nursing No Action Required 11/06/24 15:12 11/06/24 15:13 11/06/24 15:15 Temperature Temperature Source Pulse Rate 72 73 76 Pulse Rate [Apical ] Pulse Rate from Sp O2 Sensor 72 Pulse Strength [Ap ical] Respiratory Rate 22 23 Respiratory Effort / Characteristics Respiratory Depth Respiratory Patter n Blood Pressure Blood Pressure [Ri ght Arm] Blood Pressure Davina n Blood Pressure Davina n [Right Arm] Pulse Oximetry 90 Oxygen Delivery Me thod Oxygen Flow Rate Sepsis Recent Feve r Within 48 Hours Sepsis New/Unexpla ined Change in Men angus Status Sepsis Action Take n by Nursing 11/06/24 15:32 11/06/24 15:36 11/06/24 15:42 Temperature Temperature Source Pulse Rate 83 Pulse Rate [Apical ] 79 Pulse Rate from Sp O2 Sensor Pulse Strength [Ap ical] Normal Respiratory Rate 14 15 Respiratory Effort / Characteristics Non-Labored Sponta neous Respiratory Depth Normal Respiratory Patter n Blood Pressure 120/79 Blood Pressure [Ri ght Arm] 120/79 Blood Pressure Davina n 83 Blood Pressure Davina n [Right Arm] 92 Pulse Oximetry 89 L 92 Oxygen Delivery Me thod Room Air Oxygen Flow Rate Sepsis Recent Feve r Within 48 Hours Sepsis New/Unexpla ined Change in Men angus Status Sepsis Action Take n by Nursing 11/06/24 15:48 11/06/24 16:01 11/06/24 16:01 Temperature Temperature Source Pulse Rate 73 Pulse Rate [Apical ] Pulse Rate from Sp O2 Sensor 72 Pulse Strength [Ap ical] Respiratory Rate 20 Respiratory Effort / Characteristics Respiratory Depth Respiratory Patter n Blood Pressure 144/84 H 144/84 H Blood Pressure [Ri ght Arm] Blood Pressure Davina n 101 101 Blood Pressure Davina n [Right Arm] Pulse Oximetry 96 Oxygen Delivery Me thod Oxygen Flow Rate Sepsis Recent Feve r Within 48 Hours Sepsis New/Unexpla ined Change in Men angus Status Sepsis Action Take n by Nursing 11/06/24 16:01 11/06/24 16:01 11/06/24 16:06 Temperature Temperature Source Pulse Rate 77 Pulse Rate [Apical ] Pulse Rate from Sp O2 Sensor 77 Pulse Strength [Ap ical] Respiratory Rate 24 Respiratory Effort / Characteristics Respiratory Depth Respiratory Patter n Blood Pressure 144/84 H 144/84 H Blood Pressure [Ri ght Arm] Blood Pressure Davina n 101 101 Blood Pressure Davina n [Right Arm] Pulse Oximetry 91 Oxygen Delivery Me thod Nasal Cannula Oxygen Flow Rate 4 Sepsis Recent Feve r Within 48 Hours Sepsis New/Unexpla ined Change in Men angus Status Sepsis Action Take n by Nursing Physical Exam: Physical Exam HENT: Exam performed. - Head: Normocephalic and atraumatic. EYES: Conjunctivae and EOM are normal. Right eye exhibits no discharge. Left eye exhibits no discharge. No scleral icterus. NECK: Normal range of motion. Neck supple. No JVD present. CV: Normal rate, regular rhythm, normal heart sounds and intact distal pulses. There is no peripheral edema. Palpable radial pulses bue. PULM/CHEST: Inspiratory rales at the bases. Rhonchi bilaterally. ABD: The abdomen is soft. There is no tenderness. NEURO: Motor and sensation grossly intact. SKIN: Skin is warm and dry. He is not diaphoretic. PSYCH: normal mood and affect. Behavior is normal. Judgment and thought content normal. Course Course 1453: The patient was evaluated in room [facility]. A complete history and physical exam was performed Patient was seen during a time of extreme volume and extreme acuity. Nursing triage protocols were initiated labs and imaging was conducted by protocol in the triage area. [place] and was found to be hypoxic on room air. Patient states she does not wear oxygen or have an oxygen concentrator at home. Patient was moved to room and placed on oxygen which improved her oxygen saturation. Will obtain imaging as well as further blood work Cardiac monitoring: An order was placed for continuous cardiac monitoring. The monitor shows a rate of 70 with sinus rhythm interpreted by me 1625: Vital signs stable on supplemental oxygen via nasal cannula. Labs are unremarkable. Imaging shows pneumonia. Patient be treated with Zosyn and vancomycin and admitted to the [facility] hospitalist team. Spoke with Dr. Williamson who will admit the patient. Administered Medications Discontinued Medications Albuterol (Albut/Ipratrop 3mg/0.5mg Neb 3 Ml Vial) 3 ml NEB NOW STA; Protocol Stop: 11/06/24 15:05 Last Admin: 11/06/24 15:41 Dose: 3 ml Documented By: AMISHA Ioversol (Optiray 320 125ml) 118 ml IV ONCE ONE Stop: 11/06/24 15:25 Last Admin: 11/06/24 15:25 Dose: 118 ml Documented By: RAYMUNDO Methylprednisolone (Methylprednisolone 125 Mg/2 Ml Vial) 125 mg IV NOW STA Stop: 11/06/24 15:05 Last Admin: 11/06/24 15:40 Dose: 125 mg Documented By: AMISHA Medical Decision Making Laboratory Data Attestation: I reviewed the patient's lab results. 11/06/24 13:51 11/06/24 13:51 Lab Results 11/06/24 11/06/24 Range/Units 13:51 15:09 WBC 11.31 H (4.8-10.8) K/ul RBC 4.84 (4.20-5.40) M/uL Hgb 15.0 (12.0-16.0) g/dl Hct 44.4 (37.0-47.0) % MCV 91.7 (80.0-100.0) fL MCH 31.0 (25.0-34.0) pg MCHC 33.8 (32.0-36.0) g/dL RDW Std Deviation 49.1 H (36.4-46.3) fL RDW Coeff of Ani 14.6 H (11.5-14.5) % Plt Count 231 (130-400) K/uL MPV 10.4 (9.4-12.4) fL Immature Gran % (Auto) 0.4 % Neut % (Auto) 83.1 % Lymph % (Auto) 6.8 % Teton % (Auto) 9.4 % Eos % (Auto) 0.0 % Baso % (Auto) 0.3 % Neut # (Auto) 9.40 H (1.40-6.50) K/uL Lymph # (Auto) 0.77 L (1.20-3.40) K/uL Teton # (Auto) 1.06 H (0.11-0.59) K/uL Eos # (Auto) 0.00 (0.00-0.50) K/uL Baso # (Auto) 0.03 (0.00-0.20) K/uL Immature Gran # (Auto) 0.05 (0.01-0.20) K/uL VBG pH 7.36 (7.36-7.41) VBG pCO2 53 H (38-50) mmHg VBG pO2 32 mmHg VBG HCO3 30 mmol/L VBG O2 Saturation < 60.0 % VBG Base Excess 3.0 mEq/L Sodium 133 L (136-145) mmol/L Potassium 3.8 (3.5-5.1) mmol/L Chloride 98 (98-107) mmol/L Carbon Dioxide 27 (21-32) mmol/L Anion Gap 8 (3-11) BUN 17 (6-23) mg/dl Creatinine 0.84 (0.6-1.2) mg/dl Est Cr Clr Drug Dosing 45.8 ml/min eGFR 70.64 BUN/Creatinine Ratio 20.2 H (10-20) Glucose 119 H (70-99(Fasting)) mg/dl Calcium 9.3 (8.6-10.3) mg/dl Total Bilirubin 0.6 (0.2-1.0) mg/dl AST 14 (13-39) U/L ALT 9 (7-52) U/L Alkaline Phosphatase 76 (34-104) U/L Troponin I High Sens 25.0 H (0-14) pg/ml B-Natriuretic Peptide 796 H (0-100) pg/ml Total Protein 7.5 (6.0-8.3) gm/dl Albumin 3.7 (3.4-5.0) gm/dl Globulin 3.8 (2.5-4.0) gm/dl Albumin/Globulin Ratio 1.0 (0.9-2) SARS-CoV-2 (PCR) NEGATIVE (Negative) Influenza Type A (PCR) Negative (Neg) Influenza Type B (PCR) Negative (Neg) RSV (RT-PCR) Negative (Neg) Imaging Data Attestation: I personally reviewed and interpreted this imaging study as follows: My Impression: Chest x-ray: Bilateral pneumonia Radiologist's Impression: Chest X-Ray 11/06/24 12:44 XR chest 1V not portable CLINICAL HISTORY: low sats COMPARISON STUDY: 11/04/2023 FINDINGS: Stable CABG. Stable cardiomegaly with mild pulmonary vascular congestion. There is mildly increased stranding opacity at the lung bases. No other consolidation or pleural effusion seen. No pneumothorax. The known right lung nodule is not well seen by plain film. IMPRESSION: 1. Atelectasis versus early pneumonia in the lung bases. 2. Stable mild CHF. ACT 112: Negative or not required by law. Electronically signed by: Bryant Roman M.D. 11/06/2024 2:25 PM Chest CTA 11/06/24 15:05 CT ANGIOGRAM OF THE CHEST CLINICAL HISTORY: Hypoxia. Lung cancer status post radiation treatment. Evaluate for pulmonary embolus. COMPARISON STUDY: Chest CT September 18, 2024. Chest radiograph performed earlier today. TECHNIQUE: Following the IV administration of 118 cc of Optiray 320, CT angiogram of the chest was performed from the upper abdomen to the thoracic inlet utilizing the pulmonary embolus protocol. Images are reviewed in the axial, sagittal, and coronal planes. 3-D MIPS images are created and assessed. IV contrast was administered without complication. A dose lowering technique was utilized adhering to the principles of ALARA. FINDINGS: No pulmonary emboli are identified. Postoperative findings consistent with median sternotomy and bypass grafting are noted. The heart is moderately enlarged. There is no pericardial effusion. A mildly enlarged left level 4 cervical lymph node on image 195 of 250 measures 1.4 x 1 cm. This has slightly increased in size since prior CT. Mildly enlarged mediastinal lymph nodes have increased in size. Index right lower paratracheal lymph node on image 142 measures 1.5 x 1.1 cm. Prominent bilateral hilar lymph nodes have increased in size. Right middle lobe collapse has developed since CT of September 10, 2024. There are extensive secretions within the right middle lobe airways. In addition, there are extensive secretions with bronchial wall thickening within the bilateral lower lobe bronchi. Patchy alveolar opacities within the left lower lobe have developed since prior CT. Subpleural lingular opacities are unchanged since prior CT. There is moderate underlying emphysema. A 1.5 cm lesion within the superior segment of the right lower lobe on image 122 remains unchanged since prior CT. 7 mm right lower lobe nodule on image 65 is unchanged. IMPRESSION: 1. No pulmonary emboli identified. 2. Interval development of right middle lobe collapse. No central obstructing mass identified. This collapse is likely related to extensive secretions within the airways. However, a chest CT in one month to ensure resolution is recommended to exclude an occult lesion. 3. Secretions and bronchial wall thickening within the lower lobes with patchy left lower lobe airspace opacities. The findings favor pneumonia. Aspiration pneumonitis is within the differential. 4. No change in a 1.5 cm right lower lobe nodule since CT of September 18, 2024. This could represent treatment-related change. However, residual tumor could appear similar and this should be assessed on follow-up exams. 5. Interval development of mild mediastinal and bilateral hilar lymphadenopathy. This is likely reactive but should be assessed on follow-up CT. 6. Emphysema. ACT 112: Negative or not required by law. Electronically signed by: Nito Leahy M.D. 11/06/2024 3:[address] 11/06/24 15:06 CT head/brain wo con CLINICAL HISTORY: Danielson. TECHNIQUE: Multiple axial CT images of the head were obtained without contrast. A dose lowering technique was utilized adhering to the principles of ALARA. CT DOSE: 1679.52 mGy.cm COMPARISON: 10/08/2023 FINDINGS: No intracranial hemorrhage seen. No mass effect, midline shift, or hydrocephalus. No skull fracture seen. There is mild mucosal thickening with a small amount of layering fluid at bilateral maxillary sinuses. Otherwise the paranasal sinuses and mastoid air cells are clear. IMPRESSION: 1. No acute intracranial findings. 2. Mild maxillary sinusitis. ACT 112: Negative or not required by law. The above report was generated using voice recognition software. It may contain grammatical, syntax or spelling errors. Electronically signed by: Bryant Roman M.D. 11/06/2024 3:36 PM ECG Data Attestation: I personally reviewed and interpreted this ECG as follows: Rate (beats per minute): 74 Rhythm: normal sinus Findings: no ST depression, no ST elevation or no prolonged QT Additional Comments: Right bundle branch block. Left ventricular hypertrophy present. [facility] Narrative 1453: The patient was evaluated in room [facility]. A complete history and physical exam was performed Patient was seen during a time of extreme volume and extreme acuity. Nursing triage protocols were initiated labs and imaging was conducted by protocol in the triage area. [place] and was found to be hypoxic on room air. Patient states she does not wear oxygen or have an oxygen concentrator at home. Patient was moved to room and placed on oxygen which improved her oxygen saturation. Will obtain imaging as well as further blood work Cardiac monitoring: An order was placed for continuous cardiac monitoring. The monitor shows a rate of 70 with sinus rhythm interpreted by me 1625: Vital signs stable on supplemental oxygen via nasal cannula. Labs are unremarkable. Imaging shows pneumonia. Patient be treated with Zosyn and vancomycin and admitted to the [facility] team. Spoke with Dr. Williamson who will admit the patient. Impression & Plan Pneumonia, Hypoxia Critical Care Time Critical Care Time: Yes Total Critical Care Time: 42 I have personally spent greater than 42 minutes of critical care time in the direct management of this patient. This includes bedside care, interpretation of diagnostic studies, and testing, discussion with consultants, patient, and family members, and other required patient management activities. This 42 minutes is in excess of all separately billable procedures. Discharge Plan Visit Data Chief Complaint: Illness Stated Complaint: PRESSURE AROUND EYES, COUGHING, REF BY DOC ED Provider: Sarmad Escobedo Discharge Problem: Pneumonia, Hypoxia Patient Disposition: Admitted As Inpatient Condition: Serious Forms Stand Alone Forms: My [facility] Prescriptions Prescriptions: No Action nitroglycerin [Nitrostat] 0.4 mg tablet, sublingual 0.4 mg sublingual ONCE PRN (Reason: chest pain) Qty: 1 3RF furosemide 20 mg tablet 20 mg PO DAILY PRN (Reason: edema) Qty: 60 5RF cholecalciferol (vitamin D3) 50 mcg (2,000 unit) capsule 4,000 unit PO BID levocetirizine 5 mg tablet 5 mg PO DAILY PRN (Reason: allergy symptoms) Qty: 90 1RF Rx Instructions: Take daily for 10 days then PRN metoprolol succinate 25 mg tablet extended release 24 hr 25 mg PO QAM Qty: 90 3RF Rx Instructions: qam spironolactone 25 mg tablet 25 mg PO QAM Qty: 90 3RF rosuvastatin 5 mg tablet 5 mg PO QAM Qty: 90 3RF PreserVision AREDS [id number],[id number] [id number] Tablet 1 tab PO BID aspirin [Adult Low Dose Aspirin] 81 mg tablet,delayed release (DR/EC) 81 mg PO QAM Rx Instructions: qam Referrals Referrals: Danile Myers DO [Primary Care Provider] - Discharge Problem: Pneumonia Qualifiers: Pneumonia type: due to unspecified organism Laterality: unspecified laterality Lung location: unspecified part of lung Qualified Code(s): J18.9 - Pneumonia, unspecified organism
[2024-11-06 15:17] LABS: Base Excess VBG 3.0 mEq/L; HCO3 VBG 30 mmol/L; Oxygen Saturation VBG < 60.0 %; PCO2 VBG 53 mmHg (38-50); PO2 VBG 32 mmHg; pH VBG 7.36 (7.36-7.41)
[2024-11-06] MEDS: OPTIRAY 320 125ml IV ONE (15:25)
--- NOTE | 2024-11-06 15:37 | CT Scan Report ---
CT head/brain wo con CLINICAL HISTORY: Danielson. TECHNIQUE: Multiple axial CT images of the head were obtained without contrast. A dose lowering tech nique was utilized adhering to the principles of ALARA. CT DOSE: 1679.52 mGy.cm COMPARISON: 10/08/2023 FINDINGS: No intracranial hemorrhage seen. No mass effect, midline shift, or hydrocephalus. No skull fracture seen. There is mild mucosal thickening with a small amount of layering fluid at bilateral ma xillary sinuses. Otherwise the paranasal sinuses and mastoid air cells are clear. IMPRESSION: 1. No acute intracranial findings. 2. Mild maxillary sinusitis. ACT 112: Negative or not required by law. The above report was generated using voice recognition software. It may contain grammatical, syntax o r spelling errors. Electronically signed by: Bryant Roman M.D. 11/06/2024 3:36 PM
[2024-11-06] MEDS: ALBUT/IPRATROP 3MG/0.5MG NEB 3 ML VIAL NEB STA (15:41)
--- NOTE | 2024-11-06 15:48 | CT Scan Report ---
CT ANGIOGRAM OF THE CHEST CLINICAL HISTORY: Hypoxia. Lung cancer status post radiation treatment. Evaluate for pulmonary embolu s. COMPARISON STUDY: Chest CT September 18, 2024. Chest radiograph performed earlier today. TECHNIQUE: Following the IV administration of 118 cc of Optiray 320, CT angiogram of the chest was pe rformed from the upper abdomen to the thoracic inlet utilizing the pulmonary embolus protocol. Images are reviewed in the axial, sagittal, and coronal planes. 3-D MIPS images are created and assessed. I V contrast was administered without complication. A dose lowering technique was utilized adhering to the principles of ALARA. FINDINGS: No pulmonary emboli are identified. Postoperative findings consistent with median sternotom y and bypass grafting are noted. The heart is moderately enlarged. There is no pericardial effusion. A mildly enlarged left level 4 cervical lymph node on image 195 of 250 measures 1.4 x 1 cm. This has slightly increased in size since prior CT. Mildly enlarged mediastinal lymph nodes have increased in size. Index right lower paratracheal lymph node on image 142 measures 1.5 x 1.1 cm. Prominent bilater al hilar lymph nodes have increased in size. Right middle lobe collapse has developed since CT of Aug. There are extensive secretions within the right middle lobe airways. In addition, there a re extensive secretions with bronchial wall thickening within the bilateral lower lobe bronchi. Patch y alveolar opacities within the left lower lobe have developed since prior CT. Subpleural lingular op acities are unchanged since prior CT. There is moderate underlying emphysema. A 1.5 cm lesion within the superior segment of the right lower lobe on image 122 remains unchanged since prior CT. 7 mm righ t lower lobe nodule on image 65 is unchanged. IMPRESSION: 1. No pulmonary emboli identified. 2. Interval development of right middle lobe collapse. No central obstructing mass identified. This c ollapse is likely related to extensive secretions within the airways. However, a chest CT in one erica h to ensure resolution is recommended to exclude an occult lesion. 3. Secretions and bronchial wall thickening within the lower lobes with patchy left lower lobe airspa ce opacities. The findings favor pneumonia. Aspiration pneumonitis is within the differential. 4. No change in a 1.5 cm right lower lobe nodule since CT of September 18, 2024. This could represent iliana tment-related change. However, residual tumor could appear similar and this should be assessed on fol low-up exams. 5. Interval development of mild mediastinal and bilateral hilar lymphadenopathy. This is likely react hattie but should be assessed on follow-up CT. 6. Emphysema. ACT 112: Negative or not required by law. Electronically signed by: Nito Leahy M.D. 11/06/2024 3:47 PM
[2024-11-06] MEDS ORDERED: VANCOMYCIN CONSULT ACTIVE PRN ×2 (16:09→19:12)
[2024-11-06] MEDS: PIPERACILLIN/TAZOBACTAM 4.5 GM/120 ML BAG IV ONE (16:38)
[2024-11-06] MEDS: VANCOMYCIN HCL 1,500 MG in SODIUM CHLORIDE 0.9% 500 ML IV ONE (16:48)
--- NOTE | 2024-11-06 16:56 | History & Physical Report ---
Date of Service November 06, 2024 Assessment & Plan (1) Acute respiratory failure with hypoxia: Plan: Supplemental oxygen per nasal cannula to maintain saturation greater than 90%. Wean off as tolerated (2) Acute exacerbation of chronic obstructive pulmonary disease (COPD): Plan: Treat underlying bronchitis. Parenteral steroids. Scheduled nebulizers (3) Acute bronchitis: Plan: Obtain sputum for culture and sensitivity. Intravenous Zosyn and vancomycin given in the ER and will be continued. (4) Acute on chronic diastolic CHF (congestive heart failure): Plan: Parenteral Lasix every 12 hours. Monitor intake and output. Serial chest x-ray (5) Hypertension: Plan: Currently stable. Continue current medical management (6) Primary cancer of right lower lobe of lung: Plan: This may account for right middle lobe collapse seen on chest CT scan. Will follow Plan Hopeful discharge to home within the next 2 to 3 days History of Present Illness Chief Complaint: Productive cough, shortness of breath Primary Care Provider: Daniel Myers, DO 79-year-old white female with a longstanding smoking history. She has developed a productive cough and worsening shortness of breath for the past several days. She did not denies hemoptysis. She has had some weight gain also but she said she never develops peripheral edema. Chest x-ray reveals evidence of CHF. She has at least bronchitis and may have some underlying pneumonia. She is on supplemental oxygen in the ED and has received Zosyn and vancomycin. Chest CTA reveals right middle lobe collapse and airway secretions consistent with the underlying bronchitis. She is admitted for further evaluation and treatment Allergies Allergy/AdvReac Type Severity Reaction Status Date / Time simvastatin [From Zocor] AdvReac Intermediate Myalgia Verified 11/06/24 16:29 Home Medications Medication Instructions Recorded Confirmed Type vitamins A,C,G-pddu-dqlcao 2,148 1 tab PO BID 07/21/18 11/06/24 History mcg-113 mg-45 mg-17.4 mg tablet (PreserVision AREDS) cholecalciferol (vitamin D3) 50 4,000 unit PO BID 03/03/22 11/06/24 History mcg (2,000 unit) capsule nitroglycerin 0.4 mg sublingual 0.4 mg sublingual ONCE PRN chest 01/21/23 11/06/24 Rx tablet (Nitrostat) pain #1 btl aspirin 81 mg tablet,delayed 81 mg PO QAM 03/24/23 11/06/24 History release (Adult Low Dose Aspirin) furosemide 20 mg tablet 20 mg PO DAILY PRN edema #60 tabs 03/14/24 11/06/24 Rx levocetirizine 5 mg tablet 5 mg PO DAILY PRN allergy symptoms 04/25/24 11/06/24 Rx #90 tabs metoprolol succinate 25 mg 25 mg PO QAM #90 tabs 06/27/24 11/06/24 Rx tablet,extended release 24 hr rosuvastatin 5 mg tablet 5 mg PO QAM #90 tabs 06/27/24 11/06/24 Rx spironolactone 25 mg tablet 25 mg PO QAM #90 tabs 06/27/24 11/06/24 Rx Past Med/Surg History Problem List (Updated 11/06/24 @ 16:55 by Isak Williamson MD) Acute on chronic diastolic CHF (congestive heart failure) Acute bronchitis Acute exacerbation of chronic obstructive pulmonary disease (COPD) Acute respiratory failure with hypoxia Hypoxia (Acute) Pneumonia (Acute) Hypoxia Hypertension Heart failure with improved ejection fraction (HFimpEF) Primary cancer of right lower lobe of lung (Chronic 11/04/23) 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 GERD without esophagitis (Acute) Osteoporosis (Chronic) Personal history of noncompliance with medical treatment, presenting hazards to health (Acute) Pulmonary emphysema (Chronic) Status post aorto-coronary artery bypass graft (Chronic) Patent foramen ovale (Chronic) Vitamin D deficiency (Chronic) Multiple pulmonary nodules (Chronic) Pre-diabetes (Chronic) Bradycardia pt denies Mitral regurgitation Medical History Abnormal CT scan, colon Right radial fracture (~10/07/23) acute nondisplaced intra-articular distal right radial fracture History of ischemic cardiomyopathy 07/2018. LORD -> lad, svg ->OM1, svg->rca x3 vessels ([facility]) COPD (chronic obstructive pulmonary disease) no inhalers Acute respiratory failure with hypoxia Vitamin D deficiency Diabetes PFO (patent foramen ovale) Parotid nodule Osteoporosis Multiple pulmonary nodules follows w/ Dr Desouza Mitral regurgitation GERD (gastroesophageal reflux disease) Current smoker COPD (chronic obstructive pulmonary disease) Chronic systolic (congestive) heart failure Chronic bronchitis Macular degeneration Chronic cough History of COVID-19 tested positive 12/09/22 at [facility] : muscle aches and fatigue. no current issues Depression controlled without medication Anxiety controlled without medication Acute systolic CHF (congestive heart failure) (2018) hx Emphysema of lung hx of oxygen use --- refuses to wear, states she has no problems breathing. Surgical History Hx of CABG 07/2018. LORD -> lad, svg ->OM1, svg->rca x3 vessels ([facility]) History of bronchoscopy (09/01/23) History of coronary artery bypass graft x 3 07/2018. LORD -> lad, svg ->OM1, svg->rca x3 vessels ([facility]) History of cardiac cath 07/2018. no stents History of cataract surgery right eye/left eye History of total hysterectomy Hx of tubal ligation Family History Mother Myocardial infarction Pulmonary embolism Uncle Myocardial infarction Father No problems noted. Daughter Myocardial infarction with stent Sister No problems noted. Other No family history of adverse response to anesthesia Denies family history of Ovarian cancer Prostate cancer Colorectal cancer Social History Smoking Status: Current every day smoker Tobacco Type: Cigarettes Age Started Using Tobacco: 12; packs per day: 0.5; Cigarettes Per Day: 10; Second Hand Exposure: Yes; Do You Dip or Chew Tobacco: No; Hx Alcohol Use: No Hx Substance Use: No Preferred Language: Taiwanese Communication Ability: Effective Visual Impairment: Limited Hearing Ability: Normal Preschool Teacher'S Assistant Required: No Beliefs That Will Affect Care: None marital status: Current Living Situation: Spouse and Homeless current occupational status: retired 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 No wheezing. Shortness of breath at rest and with exertion. No hemoptysis Cardiacno palpitations, no chest pain, no syncope [place] nausea, vomiting, diarrhea, melena, hematochezia GUno urinary retention, no urinary incontinence, no dysuria, no hematuria Musculoskeletalno joint pain, no muscle tenderness Skinno bruising, no rashes, no pruritus Neurono isolated weakness, no paresthesia, no weakness Psychno depression, no anxiety Physical Exam 2 Physical Exam: General-alert and oriented x3, no fever, no chills HEENT-head atraumatic and normocephalic, pupils equal and reactive to light, extraocular muscles intact Neck-no lymphadenopathy or thyromegaly, trachea midline Chest-diffuse bilateral rhonchi and expiratory wheezes. Faint bibasilar inspiratory rales. No dullness to percussion Cardiac-regular rate and rhythm, normal S1 and S2 Abdomen-normal bowel sounds, no hepatosplenomegaly Extremities-no cyanosis, clubbing, or edema Neuro-cranial nerves II through XII intact, motor and sensory function within normal limits, strength symmetrical, no focal deficits Psych-normal affect, normal mood Results & Data Results & Data Vital Signs (Past 12 Hours) Vital Signs Temp Pulse Pulse Resp BP BP Pulse Ox 11/06/24 16:48 82 22 11/06/24 16:32 162/90 H 11/06/24 16:30 83 23 11/06/24 16:27 82 24 11/06/24 16:06 77 24 91 11/06/24 16:01 144/84 H 11/06/24 16:01 144/84 H 11/06/24 16:01 144/84 H 11/06/24 16:01 144/84 H 11/06/24 15:48 73 20 96 11/06/24 15:42 79 15 120/79 92 11/06/24 15:36 83 14 89 L 11/06/24 15:32 120/79 11/06/24 15:15 76 23 11/06/24 15:13 73 11/06/24 15:12 72 22 90 11/06/24 15:07 71 20 114/64 93 11/06/24 15:07 114/64 11/06/24 12:39 36.5 C 81 20 125/75 82 L O2 Del Method O2 Flow Rate 11/06/24 16:48 11/06/24 16:32 11/06/24 16:30 11/06/24 16:27 11/06/24 16:06 Nasal Cannula 4 11/06/24 16:01 11/06/24 16:01 11/06/24 16:01 11/06/24 16:01 11/06/24 15:48 11/06/24 15:42 Room Air 11/06/24 15:36 11/06/24 15:32 11/06/24 15:15 11/06/24 15:13 11/06/24 15:12 11/06/24 15:07 Nasal Cannula 4 11/06/24 15:07 11/06/24 12:39 Room Air Laboratory Results 11/06/24 13:51 11/06/24 13:51 Code Status & VTE Plan Code Status Full code PG Care Time/CCT Total # of Minutes Spent Total Time Spent with Patient: Total time spent is greater than 50% in coordination of care (as documented) at patient's floor/unit and/or counseling patient: Coding Level of Care Code 34983 INT INP/OBS CARE 3/75MIN Diagnoses Acute respiratory failure with hypoxia J96.01 Acute exacerbation of chronic obstructive pulmonary disease (COPD) J44.1 Acute bronchitis J20.9 Acute on chronic diastolic CHF (congestive heart failure) I50.33 Primary hypertension I10 Hypertension type: primary hypertension Primary cancer of right lower lobe of lung C34.31 (5) Hypertension Hypertension type: primary hypertension Qualified Code(s): I10 - Essential (primary) hypertension
[2024-11-06] MEDS ORDERED: ACETAMINOPHEN 325 MG TAB PO PRN (19:12)
[2024-11-06] MEDS ORDERED: VANCOMYCIN HCL / NSS 1,000 MG/270 ML BAG IV SCH (19:12)
[2024-11-06] MEDS ORDERED: NITROGLYCERIN SL 0.4 MG/TAB TAB SL PRN (19:12)
[2024-11-06] MEDS ORDERED: methylPREDNISolone 10 mg/mL (For Ped Dose < 7mg) IV SCH (19:12)
[2024-11-06] MEDS ORDERED: ONDANSETRON INJ 2 MG/ML 2 ML VIAL IV PRN (19:12)
[2024-11-06] MEDS: ALBUT/IPRATROP 3MG/0.5MG NEB 3 ML VIAL NEB SCH (20:11)
[2024-11-06] MEDS: CHOLECALCIFEROL 25 MCG (1000 UNITS) TAB PO SCH (22:01)
[2024-11-06] MEDS: PIPERACILLIN/TAZOBACTAM 4.5 GM/100 ML BAG IV SCH (22:09)
[2024-11-06] MEDS: FUROSEMIDE 40 MG/4 ML VIAL IV SCH (22:34)
[2024-11-07] MEDS: VANCOMYCIN HCL 1,500 MG in SODIUM CHLORIDE 0.9% 500 ML IV SCH (06:27)
[2024-11-07 09:20] LABS: Hematocrit (blood only) 44.7 % (37.0-47.0); Hemoglobin 14.7 g/dl (12.0-16.0); Mean Corpuscular Hemoglobin 31.1 pg (25.0-34.0); Mean Corpuscular Volume 94.5 fL (80.0-100.0); Platelet Count 223 K/uL (130-400); RDW Standard Deviation 51.3 fL (36.4-46.3); Red Blood Count 4.73 M/uL (4.20-5.40); White Blood Count 11.03 K/ul (4.8-10.8)
[2024-11-07] MEDS: SPIRONOLACTONE 25 MG TAB PO SCH (09:27)
[2024-11-07] MEDS: ENOXAPARIN INJ 40 MG/0.4 ML SYR SQ SCH (09:28)
[2024-11-07] MEDS: METOPROLOL SUCC 25MG EXT REL TAB PO SCH (09:28)
[2024-11-07] MEDS: CEROVITE ADV FORMULA TAB PO SCH (09:28)
[2024-11-07] MEDS: ROSUVASTATIN CALCIUM 5 MG TAB PO SCH (09:28)
[2024-11-07] MEDS: ASPIRIN 81 MG ECTAB PO SCH (09:28)
[2024-11-07 09:34] LABS: Anion Gap 8.0 (3-11); Blood Urea Nitrogen 22.0 mg/dl (6-23); Calcium 8.5 mg/dl (8.6-10.3); Carbon Dioxide 27.0 mmol/L (21-32); Chloride 101.0 mmol/L (98-107); Creatinine Clr Calc Pharmacy 42.0 ml/min; Glucose 168.0 mg/dl (70-99(Fasting)); Potassium 4.2 mmol/L (3.5-5.1); Sodium 136.0 mmol/L (136-145)
[2024-11-07 09:38] LABS: Immature Granulocytes # (auto) 0.06 K/uL (0.01-0.20); Immature Granulocytes % (auto) 0.5 %
--- NOTE | 2024-11-07 10:32 | Pharmacy Report ---
Pharmacy PK ABX Note - Date of Service November 07, 2024 - Assessment and Plan Assessment 79 year old F receiving vancomycin and piperacillin/tazobactam for treatment of community acquired pneumonia. Pertinent microbiologic data includes: MRSA swab ordered, blood cultures pending. Day #2 of antimicrobial therapy. Plan Vancomycin * Loading dose: 1500mg mg IV x 1 * Maintenance dose: 1500 mg IV every 24 hours * Regimen is predicted to achieve target AUC/MARYLU of 400-600 mg/L.hr * With further [employer] data this AM, the AUC/MARYLU may be slightly supratherapeutic. Going to get a random vancomycin level with AM labs 11/08 to determine if dose needs further adjustment * Random level ordered for: 11/08/24 @0444 Pharmacy will continue to follow and will adjust dose/frequency as necessary. Thank you. Pharmacy has transitioned to AUC monitoring for vancomycin. AUC/MARYLU is the preferred PK/PD target and is associated with decreased risk of nephrotoxicity compared to traditional trough targets.
--- NOTE | 2024-11-07 15:26 | Hospitalist Progress Note ---
Date of Service November 07, 2024 Assessment & Plan (1) Acute respiratory failure with hypoxia: Plan: Supplemental oxygen per nasal cannula to maintain saturation greater than 90%. Unfortunately she is requiring high oxygen flow rates. (2) Acute exacerbation of chronic obstructive pulmonary disease (COPD): Plan: Treat underlying bronchitis and further investigation of right lower lobe atelectasis is warranted. Currently on parenteral steroids and IV antibiotics. Scheduled nebulizers (3) Acute bronchitis: Plan: Obtain sputum for culture and sensitivity. Intravenous Zosyn and vancomycin were given in the ER and will be continued. (4) Acute on chronic diastolic CHF (congestive heart failure): Plan: Continue parenteral Lasix every 12 hours. Monitor intake and output. Repeat chest x-ray again tomorrow, November 08 (5) Hypertension: Plan: Currently stable. Continue current medical management (6) Primary cancer of right lower lobe of lung: Plan: This may account for right middle lobe collapse seen on chest CT scan. Recurrence is a possibility considering progression of adenopathy seen in the chest. (7) Atelectasis of right lung: Plan: Complete collapse of the right lower lobe is seen on CT scan. This is new. 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 Pulmonary medicine consultation requested Plan To be determined Admission and Anticipated Discharge Date Admission Date: November 06, 2024 Subjective Alert and oriented. She states she is feeling better. She continues to require relatively high flow rates of oxygen however. Right lower lobe collapse is seen on CT scan which is new. She has a history of adenocarcinoma of the right lower lobe diagnosed in October 2023. Pulmonary consultation is probably indicated at this point. 1 of 4 blood cultures is growing a gram-positive bacillus which is probably a contaminant. She remains on intravenous Zosyn and vancomycin, day 2. Initial chest x-ray had the appearance of diastolic CHF and she is on parenteral Lasix therapy. Will repeat chest x-ray again tomorrow, November 08 Review of Systems 2 Review of Systems: Constitutionalno fever or chills ENTno blurred vision, no double vision, no epistaxis, no sore throat Respiratorycough with clear phlegm. No wheezing. Shortness of breath at rest and with exertion. No hemoptysis Cardiacno palpitations, no chest pain, no syncope [place] nausea, vomiting, diarrhea, melena, hematochezia GUno urinary retention, no urinary incontinence, no dysuria, no hematuria Musculoskeletalno joint pain, no muscle tenderness Skinno bruising, no rashes, no pruritus Neurono isolated weakness, no paresthesia, no weakness Psychno depression, no anxiety Physical Exam 2 Physical Exam: General-alert and oriented x3, no fever, no chills HEENT-head atraumatic and normocephalic, pupils equal and reactive to light, extraocular muscles intact Neck-no lymphadenopathy or thyromegaly, trachea midline Chest-diffuse bilateral rhonchi and expiratory wheezes. Faint bibasilar inspiratory rales. No dullness to percussion Cardiac-regular rate and rhythm, normal S1 and S2 Abdomen-normal bowel sounds, no hepatosplenomegaly Extremities-no cyanosis, clubbing, or edema Neuro-cranial nerves II through XII intact, motor and sensory function within normal limits, strength symmetrical, no focal deficits Psych-normal affect, normal mood Results & Data Results & Data Vital Signs (Past 12 Hours) Vital Signs Temp Pulse Pulse Resp BP Pulse Ox O2 Del Method 11/07/24 11:31 36.5 C 65 16 109/56 L 88 L Nasal Cannula 11/07/24 11:11 90 18 88 L Nasal Cannula 11/07/24 09:11 76 18 91 Nasal Cannula 11/07/24 08:15 36.9 C 52 L 16 117/64 98 Oxymask 11/07/24 08:00 Oxymask 11/07/24 07:37 56 L 11/07/24 05:22 36.8 C 61 16 109/61 89 L Oxymask O2 Flow Rate 11/07/24 11:31 6 11/07/24 11:11 6 11/07/24 09:11 6 11/07/24 08:15 10 11/07/24 08:00 10 11/07/24 07:37 11/07/24 05:22 10 Laboratory Results 11/07/24 08:23 11/07/24 08:23 PG Care Time/CCT Total # of Minutes Spent Total Time Spent with Patient: Total time spent is greater than 50% in coordination of care (as documented) at patient's floor/unit and/or counseling patient: Coding Level of Care Code 50088 SUB INP/OBS CARE 3/50MIN Diagnoses Acute respiratory failure with hypoxia J96.01 Acute exacerbation of chronic obstructive pulmonary disease (COPD) J44.1 Acute bronchitis J20.9 Acute on chronic diastolic CHF (congestive heart failure) I50.33 Primary hypertension I10 Hypertension type: primary hypertension Primary cancer of right lower lobe of lung C34.31 Atelectasis of right lung J98.11 (5) Hypertension Hypertension type: primary hypertension Qualified Code(s): I10 - Essential (primary) hypertension
[2024-11-08 05:40] LABS: Hematocrit (blood only) 41.8 % (37.0-47.0); Hemoglobin 14.6 g/dl (12.0-16.0); Mean Corpuscular Hemoglobin 32.6 pg (25.0-34.0); Mean Corpuscular Volume 93.3 fL (80.0-100.0); Platelet Count 243 K/uL (130-400); RDW Standard Deviation 49.1 fL (36.4-46.3); Red Blood Count 4.48 M/uL (4.20-5.40); White Blood Count 15.45 K/ul (4.8-10.8)
[2024-11-08 05:54] LABS: Anion Gap 8.0 (3-11); Blood Urea Nitrogen 26.0 mg/dl (6-23); Calcium 9.0 mg/dl (8.6-10.3); Carbon Dioxide 30.0 mmol/L (21-32); Chloride 97.0 mmol/L (98-107); Creatinine Clr Calc Pharmacy 34.5 ml/min; Glucose 140.0 mg/dl (70-99(Fasting)); Potassium 4.3 mmol/L (3.5-5.1); Sodium 135.0 mmol/L (136-145)
[2024-11-08 05:59] LABS: Immature Granulocytes # (auto) 0.11 K/uL (0.01-0.20); Immature Granulocytes % (auto) 0.7 %; RBC Morphology Unremarkable
[2024-11-08] MEDS: VANCOMYCIN LEVEL ONE (06:16)
--- NOTE | 2024-11-08 07:42 | Pharmacy Report ---
Pharmacy PK ABX Note - Date of Service November 08, 2024 - Assessment and Plan Assessment 79 year old F receiving vancomycin and piperacillin/tazobactam for treatment of community acquired pneumonia. Pertinent microbiologic data includes: MRSA swab negative, blood cultures growing gram positive bacilli ([employer] PCR panel discrepant), gram positive cocci in clusters ([employer] PCR pending) Day #3 of antimicrobial therapy. Plan Vancomycin * Loading dose: 1500mg mg IV x 1 * Previous maintenance dose: 1500 mg IV every 24 hours * Level this AM was 10.1 * Regimen predicted to be supratherapeutic with AUC/MARYLU >600 around dose 4 * New maintenance dose: 1250 mg IV every 24 hours * Regimen is predicted to achieve target AUC/MARYLU of 400-600 mg/L.hr * Monitor renal function * Random level ordered for: 11/10/24 @0444 Pharmacy will continue to follow and will adjust dose/frequency as necessary. Thank you. Pharmacy has transitioned to AUC monitoring for vancomycin. AUC/MARYLU is the preferred PK/PD target and is associated with decreased risk of nephrotoxicity compared to traditional trough targets.
--- NOTE | 2024-11-08 09:16 | XRay Report ---
XR chest 2V PA/lateral CLINICAL HISTORY: respiratory failure, COPD, bronchitis COMPARISON STUDY: 11/06/2024 FINDINGS: Stable CABG. Stable cardiomegaly with pulmonary vascular congestion. There is increased str anding opacity in the lung bases. There is mild blunting of the costophrenic angles. No pneumothorax. IMPRESSION: 1. CHF with possible trace pleural effusions. 2. Increased stranding opacity in the lung bases could represent pneumonia or atelectasis. ACT 112: Negative or not required by law. Electronically signed by: Bryant Roman M.D. 11/08/2024 9:15 AM
--- NOTE | 2024-11-08 13:07 | Hospitalist Progress Note ---
Date of Service November 08, 2024 Assessment & Plan (1) Acute respiratory failure with hypoxia: Plan: Supplemental oxygen per nasal cannula to maintain saturation greater than 90%. Unfortunately she is requiring high oxygen flow rates. (2) Acute exacerbation of chronic obstructive pulmonary disease (COPD): Plan: Treat underlying bronchitis and further investigation of right lower lobe atelectasis is warranted. Currently on parenteral steroids and IV antibiotics. Scheduled nebulizers (3) Acute bronchitis: Plan: Obtain sputum for culture and sensitivity. Intravenous Zosyn and vancomycin were given in the ER and will be continued. (4) Acute on chronic diastolic CHF (congestive heart failure): Plan: Continue parenteral Lasix every 12 hours. Monitor intake and output. Repeat chest x-ray again tomorrow, November 08 (5) Hypertension: Plan: Currently stable. Continue current medical management (6) Primary cancer of right lower lobe of lung: Plan: This may account for right middle lobe collapse seen on chest CT scan. Recurrence is a possibility considering progression of adenopathy seen in the chest. (7) Atelectasis of right lung: Plan: Complete collapse of the right lower lobe is seen on CT scan. This is new. 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 Considerable secretions are also noted in the bronchus leading to the right lower lobe. Pulmonary medicine consultation requested and pending Plan To be determined Admission and Anticipated Discharge Date Admission Date: November 06, 2024 Subjective Alert and oriented. No distress. is at the bedside. OT and PT have both recommended that the patient can eventually go home at discharge. I am concerned that her lung cancer has recurred and she now has obstruction of the right lower lobe bronchus causing complete atelectasis of the right lower lobe. Secretions in the right lower lobe bronchus could also be a contributing factor. Oxygen requirements have increased. Chest x-ray done today, November 08, remained stable. Pulmonary consultation remains pending. Intravenous Lasix has been discontinued due to lack of any diuretic response. She does not appear to have overt CHF at this time. Review of Systems 2 Review of Systems: Constitutionalno fever or chills ENTno blurred vision, no double vision, no epistaxis, no sore throat Respiratorycough with clear phlegm. No wheezing. Shortness of breath at rest and with exertion. No hemoptysis Cardiacno palpitations, no chest pain, no syncope [place] nausea, vomiting, diarrhea, melena, hematochezia GUno urinary retention, no urinary incontinence, no dysuria, no hematuria Musculoskeletalno joint pain, no muscle tenderness Skinno bruising, no rashes, no pruritus Neurono isolated weakness, no paresthesia, no weakness Psychno depression, no anxiety Physical Exam 2 Physical Exam: General-alert and oriented x3, no fever, no chills HEENT-head atraumatic and normocephalic, pupils equal and reactive to light, extraocular muscles intact Neck-no lymphadenopathy or thyromegaly, trachea midline Chest-diffuse bilateral rhonchi and expiratory wheezes. Faint bibasilar inspiratory rales. No dullness to percussion Cardiac-regular rate and rhythm, normal S1 and S2 Abdomen-normal bowel sounds, no hepatosplenomegaly Extremities-no cyanosis, clubbing, or edema Neuro-cranial nerves II through XII intact, motor and sensory function within normal limits, strength symmetrical, no focal deficits Psych-normal affect, normal mood Results & Data Results & Data Vital Signs (Past 12 Hours) Vital Signs Temp Pulse Resp BP Pulse Ox Pulse Ox Pulse Ox 11/08/24 11:49 92 93 11/08/24 11:13 36.4 C L 70 16 130/76 70 L 11/08/24 10:42 67 18 93 11/08/24 08:00 36.9 C 76 16 118/67 86 L 11/08/24 07:51 61 18 94 11/08/24 04:00 36.5 C 72 18 138/73 93 Pulse Ox O2 Del Method O2 Flow Rate O2 Flow Rate O2 Flow Rate O2 Flow Rate 11/08/24 11:49 75 L 8 8 0 11/08/24 11:13 Nasal Cannula 8 11/08/24 10:42 Nasal Cannula 8 11/08/24 08:00 Nasal Cannula 4 11/08/24 07:51 Nasal Cannula 11/08/24 04:00 Nasal Cannula 4 Laboratory Results 11/08/24 05:11 11/08/24 05:11 PG Care Time/CCT Total # of Minutes Spent Total Time Spent with Patient: Total time spent is greater than 50% in coordination of care (as documented) at patient's floor/unit and/or counseling patient: Coding Level of Care Code 21116 SUB INP/OBS CARE 2/35MIN Diagnoses Acute respiratory failure with hypoxia J96.01 Acute exacerbation of chronic obstructive pulmonary disease (COPD) J44.1 Acute bronchitis J20.9 Acute on chronic diastolic CHF (congestive heart failure) I50.33 Primary hypertension I10 Hypertension type: primary hypertension Primary cancer of right lower lobe of lung C34.31 Atelectasis of right lung J98.11 (5) Hypertension Hypertension type: primary hypertension Qualified Code(s): I10 - Essential (primary) hypertension
--- NOTE | 2024-11-08 14:37 | Pulmonary Consultation ---
Date of Consultation November 08, 2024 Assessment & Plan (1) Atelectasis of right lung: (2) Acute exacerbation of chronic obstructive pulmonary disease (COPD): (3) Acute respiratory failure with hypoxia: Plan CT imaging was reviewed independently by myself. There is apparent mucous plugging and atelectasis of the right middle lobe. Right middle lobe is atelectatic on x-ray as well. Likely mucous plugging however underlying malignancy cannot be excluded. The patient has been on vancomycin and Zosyn. MRSA screen is negative so I will stop the vancomycin. Continue Zosyn. I spoke with the antimicrobial stewardship pharmacist, she does have bacillus cereus positive blood culture, they are investing as to whether this should be adequate coverage or if vanco needs to be added back. Obtain sputum sample if possible. Will order procalcitonin and strep pneumonia urine antigen. Patient has been started on steroids for COPD exacerbation. I will decrease these to 40 mg daily. Patient has some volume overload and BNP is elevated, may benefit from diuresis. I have added mucomyst nebs, cpt and flutter valve. I will repeat CXR in AM. Continue oxygen, wean for saturation 88-90%. Case was discussed with bedside RN. Case also discussed with hospitalist. Plan of care was discussed with patient and she is in understanding. Thank you for this consult. I will follow along with you. History of Present Illness Reason for Consultation: RLL atelectasis. Poss lung cancer recurrence Requesting Physician: Isak Williamson MD Attending Physician: Isak Williamson MD History of Present Illness Patient is a 79-year-old female with a past medical history that is significant for COPD with emphysema, chronic hypoxic respiratory failure (prescribed 2 L of oxygen but does not use it), current everyday smoker with extensive pack-year history, history of lung mucinous adenocarcinoma status post SBRT in 2023, pulmonary hypertension. The patient follows with radiation oncology as well as Dr. Cooley in the pulmonary clinic. The patient presented to the hospital on 11/06/2024 with worsening productive cough and shortness of breath. She denied hemoptysis. Imaging of the chest on arrival showed evidence of right middle lobe atelectasis. The patient has significant oxygen requirement. A CT of the chest was obtained with IV contrast PE protocol which did not show evidence of PE, right middle lobe collapse was appreciated with extensive pulmonary secretions within the airway. Secretions and bronchial wall thickening were noted within the lower lobes with some left lower lobe airspace opacities. The right lower lobe 1.5 cm nodule had not changed since August 2024 and likely represented treatment related changes. Some increasing mediastinal and hilar adenopathy that was likely reactive. Extensive emphysema was appreciated. The patient was admitted to the hospitalist service and pulmonary was consulted for further recommendations. When I evaluated the patient she is resting comfortably in bed. She is requiring 8 L of oxygen currently. She endorses a cough with phlegm production. Denies hemoptysis. Denies fevers or chills. Denies lower extremity edema. She has coarse breath sounds bilaterally without appreciated wheezing. I reviewed the CT imaging. There is extensive secretions within the airways. Likely represents mucous. Patient is asking if she can go home today, explained with her oxygen requirement that would not be safe. Malignancy history: Has had multiple pulmonary nodules documented since 2018. Had navigational bronchoscopy that was nondiagnostic. Had CT-guided core biopsy of the right lung nodule showing mucinous adenocarcinoma with lipidic pattern. Status post radiation therapy with SBRT. Finished November 2023. Past medical history: COPD with emphysema Chronic hypoxic respiratory failure noncompliant with home oxygen Extensive tobacco use history, currently smokes 1/2 pack/day Lung mucinous adenocarcinoma status post SBRT in 2023 Pulmonary hypertension Allergies Allergy/AdvReac Type Severity Reaction Status Date / Time simvastatin [From Zocor] AdvReac Intermediate Myalgia Verified 11/06/24 16:29 Home Medications Medication Instructions Recorded Confirmed Type vitamins A,C,A-ehqt-ubllqq 2,148 1 tab PO BID 07/21/18 11/06/24 History mcg-113 mg-45 mg-17.4 mg tablet (PreserVision AREDS) cholecalciferol (vitamin D3) 50 4,000 unit PO BID 03/03/22 11/06/24 History mcg (2,000 unit) capsule nitroglycerin 0.4 mg sublingual 0.4 mg sublingual ONCE PRN chest 01/21/23 11/06/24 Rx tablet (Nitrostat) pain #1 btl aspirin 81 mg tablet,delayed 81 mg PO QAM 03/24/23 11/06/24 History release (Adult Low Dose Aspirin) furosemide 20 mg tablet 20 mg PO DAILY PRN edema #60 tabs 03/14/24 11/06/24 Rx levocetirizine 5 mg tablet 5 mg PO DAILY PRN allergy symptoms 04/25/24 11/06/24 Rx #90 tabs metoprolol succinate 25 mg 25 mg PO QAM #90 tabs 06/27/24 11/06/24 Rx tablet,extended release 24 hr rosuvastatin 5 mg tablet 5 mg PO QAM #90 tabs 06/27/24 11/06/24 Rx spironolactone 25 mg tablet 25 mg PO QAM #90 tabs 06/27/24 11/06/24 Rx Patient History Medical History Abnormal CT scan, colon Right radial fracture (~10/07/23) acute nondisplaced intra-articular distal right radial fracture History of ischemic cardiomyopathy 07/2018. LORD -> lad, svg ->OM1, svg->rca x3 vessels ([facility]) COPD (chronic obstructive pulmonary disease) no inhalers Acute respiratory failure with hypoxia Vitamin D deficiency Diabetes PFO (patent foramen ovale) Parotid nodule Osteoporosis Multiple pulmonary nodules follows w/ Dr Desouza Mitral regurgitation GERD (gastroesophageal reflux disease) Current smoker COPD (chronic obstructive pulmonary disease) Chronic systolic (congestive) heart failure Chronic bronchitis Macular degeneration Chronic cough History of COVID-19 tested positive 12/09/22 at [facility] : muscle aches and fatigue. no current issues Depression controlled without medication Anxiety controlled without medication Acute systolic CHF (congestive heart failure) (2018) hx Emphysema of lung hx of oxygen use --- refuses to wear, states she has no problems breathing. Surgical History Hx of CABG 07/2018. LORD -> lad, svg ->OM1, svg->rca x3 vessels ([facility]) History of bronchoscopy (09/01/23) History of coronary artery bypass graft x 3 07/2018. LORD -> lad, svg ->OM1, svg->rca x3 vessels ([facility]) History of cardiac cath 07/2018. no stents History of cataract surgery right eye/left eye History of total hysterectomy Hx of tubal ligation Family History Mother Myocardial infarction Pulmonary embolism Uncle Myocardial infarction Father No problems noted. Daughter Myocardial infarction with stent Sister No problems noted. Other No family history of adverse response to anesthesia Denies family history of Ovarian cancer Prostate cancer Colorectal cancer Social History Smoking Status: Current every day smoker Tobacco Type: Cigarettes Age Started Using Tobacco: 12; packs per day: 0.5; Cigarettes Per Day: 10; Second Hand Exposure: Yes; Do You Dip or Chew Tobacco: No; Hx Alcohol Use: Yes Alcohol type: beer Alcohol Intake Frequency: Monthly or Less Alcohol Intake Frequency Comment: rare Hx Substance Use: No Preferred Language: Faroese Communication Ability: Effective Visual Impairment: Limited Hearing Ability: Normal Family Service Caseworker Required: No Beliefs That Will Affect Care: None marital status: Current Living Situation: Spouse Current Living Situation Comment: w/ spouse in [place] current occupational status: retired 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 Negative except as noted in HPI. Physical Exam Physical Exam: Physical examination: General: Well-appearing, well-nourished and not in acute distress. HEENT: Normocephalic, atraumatic. Extraocular movements intact. Sclera are nonicteric. No JVD appreciated. Skin: Warm and dry. No rashes appreciated. No jaundice appreciated. Cardiovascular: Heart is a regular rate and rhythm, no murmurs appreciated on my exam. No significant lower extremity edema. Lungs: Coarse breath sounds appreciated bilaterally, no wheezing appreciated. Nontachypneic. Resting comfortably on nasal cannula. Abdomen: Nondistended, nontender to palpation. No masses appreciated. Musculoskeletal: Normal muscle mass and tone. No gross joint deformity abnormalities. No effusions appreciated. Neurologic: Awake and alert, oriented. CN II through XII are grossly intact. Speech is fluent. Nonfocal exam. Psychiatric: Appropriate cooperative during my exam. Results & Data Results & Data Vital Signs (Past 12 Hours) Vital Signs Temp Pulse Resp BP Pulse Ox Pulse Ox Pulse Ox 11/08/24 11:49 92 93 11/08/24 11:13 36.4 C L 70 16 130/76 70 L 11/08/24 10:42 67 18 93 11/08/24 08:00 36.9 C 76 16 118/67 86 L 11/08/24 07:51 61 18 94 11/08/24 04:00 36.5 C 72 18 138/73 93 Pulse Ox O2 Del Method O2 Flow Rate O2 Flow Rate O2 Flow Rate O2 Flow Rate 11/08/24 11:49 75 L 8 8 0 11/08/24 11:13 Nasal Cannula 8 11/08/24 10:42 Nasal Cannula 8 11/08/24 08:00 Nasal Cannula 4 11/08/24 07:51 Nasal Cannula 11/08/24 04:00 Nasal Cannula 4 Laboratory Results Leukocytosis on admission. Blood cultures with gram-positive cocci in clusters. Bacillus cereus cultured. Sputum culture with normal louise present. VBG with mild hypercapnia, 7.36 pH with a pCO2 of 53. Mild hyponatremia, close to her baseline. Mildly elevated BUN and creatinine. BNP elevated as well as mildly elevated troponins. MRSA screen negative. COVID, influenza A/B and RSV are negative. Diagnostic Findings Right middle lobe atelectasis with airway to place/mucus. Lower lobe bronchitis with evidence of pneumonia. PG Care Time/CCT Total # of Minutes Spent Total Time Spent with Patient: Total time spent is greater than 50% in coordination of care (as documented) at patient's floor/unit and/or counseling patient: [place] [address] IN/OBS CONSULT LVL 4,60M Patient Type New History Detailed Exam Detailed Medical Decision Making High Complexity Diagnoses Atelectasis of right lung J98.11 Acute exacerbation of chronic obstructive pulmonary disease (COPD) J44.1 Acute respiratory failure with hypoxia J96.01
[2024-11-08] MEDS: ALBUT/IPRATROP 3MG/0.5MG NEB 3 ML VIAL NEB SCH (15:58)
[2024-11-08] MEDS: ACETYLCYSTEINE 20% INHAL SOLN 4ML ***DISPENSED BY RESP. INH SCH (15:58)
[2024-11-08 16:46] LABS: A calco-baum cmplx NotReported Not Detected (NotDetected); Bact fragilis Not Reported Not Detected (NotDetected); Blood Culture Id Panel PCR Panel Negative (NotDetected); C auris Not Reported Not Detected (NotDetected); Calbicans Not Reported Not Detected (NotDetected); Candida glabrata Not Reported Not Detected (NotDetected); Candida krusei Not Reported Not Detected (NotDetected); Cneoformans/gatti Not Reported Not Detected (NotDetected); Cparapsilosis Not Reported Not Detected (NotDetected); Ctropicalis Not Reported Not Detected (NotDetected); E cloacae compx Not Reported Not Detected (NotDetected); Efaecalis Not Reported Not Detected (NotDetected); Efaecium Not Reported Not Detected (NotDetected); Enterobacterales Not Reported Not Detected (NotDetected); Escherichia coli Not Reported Not Detected (NotDetected); H influenzae Not Reported Not Detected (NotDetected); K aerogenes Not Reported Not Detected (NotDetected); Koxytoca Not Reported Not Detected (NotDetected); Kpneumoniae grp Not Reported Not Detected (NotDetected); Lmonocyt Not Reported Not Detected (NotDetected); N meningitidis Not Reported Not Detected (NotDetected); P aeruginosa Not Reported Not Detected (NotDetected); Proteus spp Not Reported Not Detected (NotDetected); Salmonella spp Not Reported Not Detected (NotDetected); Staph lugdunensis Not Reported Not Detected (NotDetected); Staph spp. Not Reported Not Detected (NotDetected); Staphaureus Not Reported Not Detected (NotDetected); Staphepi Not Reported Not Detected (NotDetected); Stenmaltophilia Not Reported Not Detected (NotDetected); Strep agal(GrpB) Not Reported Not Detected (NotDetected); Strep pneum Not Reported Not Detected (NotDetected); Strep pyog (GrpA) Not Reported Not Detected (NotDetected); Strep spp Not Reported Not Detected (NotDetected)
[2024-11-08] MEDS ORDERED: SODIUM CHLORIDE 0.65% NA SOLN 45 ML (OCEAN) PRN (18:09)
--- NOTE | 2024-11-09 08:16 | XRay Report ---
EXAM: XR chest 1V portable CLINICAL HISTORY: f/u RML attelectasis TECHNIQUE: An X-ray image of the chest was obtained in AP projection. COMPARISON: 11/06/2024 FINDINGS: Pulmonary Parenchyma: Blunted costophrenic angles are noted bilaterally, indicating mild pleural effusion. Bilateral lower lung zone opacities and atelectasis are more obvious on the left side. Perihilar reticulations are noted. No pulmonary nodules are identified. Heart and Mediastinum: The heart size and shape are normal. No mediastinal widening or masses are present. No hilar or mediastinal lymphadenopathy is identified. Bony Thorax: Intact sternal sutures and small metallic clips are present in the left paraaortic region. The bony thorax appears intact without fractures or deformities. Soft Tissues: Soft tissues overlying the chest wall are unremarkable. IMPRESSION: 1. Blunted costophrenic angles bilaterally are noted, referring to mild pleural effusion. Progression. 2. Bilateral lower lung zone opacities, referring to pulmonary infiltration and atelectasis, are more obvious on the left side. Progression. 3. Perihilar reticulations are noted, which may refer to evolving edema. Progression. Electronically signed by Silvino Myers 11-09-2024 08:16 AM
[2024-11-09 09:05] LABS: Hematocrit (blood only) 44.0 % (37.0-47.0); Hemoglobin 14.5 g/dl (12.0-16.0); Immature Granulocytes # (auto) 0.04 K/uL (0.01-0.20); Immature Granulocytes % (auto) 0.4 %; Mean Corpuscular Hemoglobin 31.5 pg (25.0-34.0); Mean Corpuscular Volume 95.7 fL (80.0-100.0); Platelet Count 242 K/uL (130-400); RDW Standard Deviation 51.8 fL (36.4-46.3); Red Blood Count 4.60 M/uL (4.20-5.40); White Blood Count 10.40 K/ul (4.8-10.8)
[2024-11-09] MEDS: VANCOMYCIN HCL 1,250 MG in SODIUM CHLORIDE 0.9% 250 ML IV SCH (09:16)
[2024-11-09 09:20] LABS: Anion Gap 4.0 (3-11); Blood Urea Nitrogen 22.0 mg/dl (6-23); Calcium 8.9 mg/dl (8.6-10.3); Carbon Dioxide 35.0 mmol/L (21-32); Chloride 96.0 mmol/L (98-107); Creatinine Clr Calc Pharmacy 46.0 ml/min; Glucose 117.0 mg/dl (70-99(Fasting)); Potassium 3.9 mmol/L (3.5-5.1); Sodium 135.0 mmol/L (136-145)
[2024-11-09] MEDS: FUROSEMIDE 40 MG/4 ML VIAL IV ONE (09:48)
[2024-11-09 11:13] LABS: Blood Culture Id Panel PCR Not Reported (NotDetected)
--- NOTE | 2024-11-09 12:00 | Pulmonology Progress Note ---
Date of Service November 09, 2024 Assessment & Plan (1) Atelectasis of right lung: (2) Acute exacerbation of chronic obstructive pulmonary disease (COPD): (3) Acute respiratory failure with hypoxia: Plan CT imaging was reviewed independently by myself. There is apparent mucous plugging and atelectasis of the right middle lobe. Right middle lobe is atelectatic on x-ray as well. Likely mucous plugging however underlying malignancy cannot be excluded. The patient has been on vancomycin and Zosyn. MRSA screen is negative. She has a positive blood culture however there are multiple organisms in this, possibly contamination. Obtain sputum sample if possible. Strep pneumonia and Legionella are pending. Patient has been started on steroids for COPD exacerbation. Will continue with 40 mg daily. Patient has some volume overload and BNP is elevated, may benefit from diuresis. I have added mucomyst nebs, cpt and flutter valve. Repeat chest x-ray today is unchanged. Some congestive changes. Spoke with hospitalist and they are going to diurese her. I will repeat another x-ray in the morning. If the patient is unable to open her airways with pulmonary toilet and noninvasive measures then we will have to consider bronchoscopy later this week or this weekend. Continue oxygen, wean for saturation 88-90%. Case was discussed with bedside RN. Case also discussed with hospitalist. Plan of care was discussed with patient and she is in understanding. Thank you for this consult. I will follow along with you. Admission and Anticipated Discharge Date Admission Date: November 06, 2024 Subjective Patient examined during morning rounds. Says she is feeling a little better. Still requiring 7 L of oxygen. Had a little bit of phlegm production last night. She had CPT therapy. She was given the flutter valve this morning and is starting to use it. No fevers or chills. Good appetite. No abdominal pain or nausea. Review of Systems Review of Systems: A 12 point review of systems was obtained in detail. Negative except as noted in HPI. Physical Exam Physical Exam: Physical examination: General: Well-appearing, well-nourished and not in acute distress. HEENT: Normocephalic, atraumatic. Extraocular movements intact. Sclera are nonicteric. No JVD appreciated. Skin: Warm and dry. No rashes appreciated. No jaundice appreciated. Cardiovascular: Heart is a regular rate and rhythm, no murmurs appreciated on my exam. No significant lower extremity edema. Lungs: Coarse breath sounds appreciated bilaterally with wheezing appreciated. Nontachypneic. Resting comfortably on 7 L nasal cannula. Abdomen: Nondistended, nontender to palpation. No masses appreciated. Musculoskeletal: Normal muscle mass and tone. No gross joint deformity abnormalities. No effusions appreciated. Neurologic: Awake and alert, oriented. CN II through XII are grossly intact. Speech is fluent. Nonfocal exam. Psychiatric: Appropriate cooperative during my exam. Results & Data Results & Data Vital Signs (Past 12 Hours) Vital Signs Temp Pulse Pulse Resp BP BP Pulse Ox 11/09/24 07:58 36.5 C 69 17 134/66 92 11/09/24 07:28 11/09/24 07:17 75 20 91 11/09/24 05:58 67 11/09/24 02:25 36.6 C 65 22 112/56 L 90 11/09/24 01:45 70 18 98 O2 Del Method O2 Flow Rate 11/09/24 07:58 Nasal Cannula 8 11/09/24 07:28 Nasal Cannula 7 11/09/24 07:17 Nasal Cannula 8 11/09/24 05:58 11/09/24 02:25 Nasal Cannula 8 11/09/24 01:45 Nasal Cannula 8 PG Care Time/CCT Total # of Minutes Spent Total Time Spent with Patient: Total time spent is greater than 50% in coordination of care (as documented) at patient's floor/unit and/or counseling patient: Coding [place] [address] SUB INP/OBS CARE 2/35MIN Patient Type Established History Detailed Exam Detailed Medical Decision Making Moderate Complexity Diagnoses Atelectasis of right lung J98.11 Acute exacerbation of chronic obstructive pulmonary disease (COPD) J44.1 Acute respiratory failure with hypoxia J96.01
--- NOTE | 2024-11-09 14:21 | Hospitalist Progress Note ---
Date of Service November 09, 2024 Assessment & Plan (1) Acute respiratory failure with hypoxia: Plan: Supplemental oxygen per nasal cannula to maintain saturation greater than 90%. Unfortunately she is currently requiring 8 L of oxygen per nasal cannula. (2) Acute exacerbation of chronic obstructive pulmonary disease (COPD): Plan: Treat underlying bronchitis and further investigation of right lower lobe atelectasis is warranted. Currently on parenteral steroids and IV antibiotics. Scheduled nebulizers (3) Acute bronchitis: Plan: Obtain sputum for culture and sensitivity. Intravenous Zosyn and vancomycin were given in the ER and will be continued. Vancomycin has been discontinued since the MRSA nasal swab is negative. (4) Acute on chronic diastolic CHF (congestive heart failure): Plan: Suspected. Good diuretic response from intravenous Lasix yesterday, November 08. Will repeat intravenous Lasix again today, November 09. Monitor intake and output. (5) Hypertension: Plan: Currently stable. Continue current medical management (6) Primary cancer of right lower lobe of lung: Plan: This may account for right middle lobe collapse seen on chest CT scan. Recurrence is a possibility considering progression of adenopathy seen in the chest. If the right lower lobe remains atelectatic, she will need bronchoscopy for further evaluation. (7) Atelectasis of right lung: Plan: Complete collapse of the right lower lobe is seen on CT scan. This is new. 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 Considerable secretions are also noted in the bronchus leading to the right lower lobe. Pulmonary medicine consultation appreciated. If the right lower lobe remains collapsed, she will need bronchoscopy evaluation to further evaluate the right lower lobe bronchus. Plan To be determined. Hopefully she can be discharged home within the next 2 to 3 days Admission and Anticipated Discharge Date Admission Date: November 06, 2024 Subjective Alert and oriented. She is anxious to go home. However the right lower lobe is collapsed and she is requiring 8 L of oxygen to maintain satisfactory oxygen saturations. MRSA nasal swab is negative and oral vancomycin has been discontinued. She remains on intravenous Zosyn and Solu-Medrol. She will receive intravenous Lasix and a dose of metolazone today, November 09, to induce diuresis and she continues with pulmonary toilet to hopefully re-aerate the right lower lobe. If this does not work, she will need bronchoscopy procedure to further evaluate the right lower lobe bronchus. Review of Systems 2 Review of Systems: Constitutionalno fever or chills ENTno blurred vision, no double vision, no epistaxis, no sore throat Respiratorycough with clear phlegm. No wheezing. Shortness of breath at rest and with exertion. No hemoptysis Cardiacno palpitations, no chest pain, no syncope [place] nausea, vomiting, diarrhea, melena, hematochezia GUno urinary retention, no urinary incontinence, no dysuria, no hematuria Musculoskeletalno joint pain, no muscle tenderness Skinno bruising, no rashes, no pruritus Neurono isolated weakness, no paresthesia, no weakness Psychno depression, no anxiety Physical Exam 2 Physical Exam: General-alert and oriented x3, no fever, no chills HEENT-head atraumatic and normocephalic, pupils equal and reactive to light, extraocular muscles intact Neck-no lymphadenopathy or thyromegaly, trachea midline Chest-diffuse bilateral rhonchi and expiratory wheezes. Faint bibasilar inspiratory rales. No dullness to percussion Cardiac-regular rate and rhythm, normal S1 and S2 Abdomen-normal bowel sounds, no hepatosplenomegaly Extremities-no cyanosis, clubbing, or edema Neuro-cranial nerves II through XII intact, motor and sensory function within normal limits, strength symmetrical, no focal deficits Psych-normal affect, normal mood Results & Data Results & Data Vital Signs (Past 12 Hours) Vital Signs Temp Pulse Pulse Resp BP BP Pulse Ox 11/09/24 13:44 80 18 90 11/09/24 12:16 36.4 C L 73 14 111/58 L 91 11/09/24 07:58 36.5 C 69 17 134/66 92 11/09/24 07:28 11/09/24 07:17 75 20 91 11/09/24 05:58 67 11/09/24 02:25 36.6 C 65 22 112/56 L 90 O2 Del Method O2 Flow Rate 11/09/24 13:44 Nasal Cannula 8 11/09/24 12:16 Nasal Cannula 8 11/09/24 07:58 Nasal Cannula 8 11/09/24 07:28 Nasal Cannula 7 11/09/24 07:17 Nasal Cannula 8 11/09/24 05:58 11/09/24 02:25 Nasal Cannula 8 Laboratory Results 11/09/24 08:44 11/09/24 08:44 PG Care Time/CCT Total # of Minutes Spent Total Time Spent with Patient: Total time spent is greater than 50% in coordination of care (as documented) at patient's floor/unit and/or counseling patient: Coding Level of Care Code 84311 SUB INP/OBS CARE 3/50MIN Diagnoses Acute respiratory failure with hypoxia J96.01 Acute exacerbation of chronic obstructive pulmonary disease (COPD) J44.1 Acute bronchitis J20.9 Acute on chronic diastolic CHF (congestive heart failure) I50.33 Primary hypertension I10 Hypertension type: primary hypertension Primary cancer of right lower lobe of lung C34.31 Atelectasis of right lung J98.11 (5) Hypertension Hypertension type: primary hypertension Qualified Code(s): I10 - Essential (primary) hypertension
[2024-11-10] MEDS ORDERED: VANCOMYCIN LEVEL ONE (06:00)
--- NOTE | 2024-11-10 08:18 | XRay Report ---
EXAM: XR chest 1V portable CLINICAL HISTORY: Follow-up. TECHNIQUE: An X-ray image of the chest was obtained in AP projection. COMPARISON: 11/09/2024. FINDINGS: Pulmonary Parenchyma: Blunted costophrenic angles are noted bilaterally, indicating mild pleural effusion. There is mild improvement. Bilateral lower lung zone opacities and atelectasis are more obvious on the left side. There is mild interval regression. Prominent interstitial markings are seen in both lungs and are stable. No pulmonary nodules are identified. Heart and Mediastinum: The heart size cannot be properly assessed, yet it appears enlarged. There is a dilated and unfolded thoracic aorta with calcifications. Intact sternal sutures and small metallic clips are present in the left para-aortic region. No hilar or mediastinal lymphadenopathy is identified. Bony Thorax: The bony thorax appears intact without fractures or deformities. Soft Tissues: The soft tissues overlying the chest wall are unremarkable. IMPRESSION: 1. Bilateral lower lung zone opacities and atelectasis with mild interval regression. 2. Bilateral pleural effusion with mild improvement. 3. Prominent interstitial markings in both lungs, stable. 4. Clinical correlation is needed. Electronically signed by Silvino Myers 11-10-2024 08:17 AM
--- NOTE | 2024-11-10 11:03 | Pulmonology Progress Note ---
Date of Service November 10, 2024 Assessment & Plan (1) Atelectasis of right lung: (2) Acute exacerbation of chronic obstructive pulmonary disease (COPD): (3) Acute respiratory failure with hypoxia: Plan CT imaging was reviewed independently by myself. There is apparent mucous plugging and atelectasis of the right middle lobe. Right middle lobe is atelectatic on x-ray as well. Likely mucous plugging however underlying malignancy cannot be excluded. The patient has been on vancomycin and Zosyn. MRSA screen is negative. She has a positive blood culture however there are multiple organisms in this, possibly contamination. Obtain sputum sample if possible. Strep pneumonia and Legionella are pending. Patient has been started on steroids for COPD exacerbation. Will continue with 40 mg daily. Can complete 5 days total. Patient has some volume overload and BNP is elevated, primary team has been diuresing her. I have added mucomyst nebs, cpt and flutter valve. Repeat chest x-ray today is slightly improved however it appears as though the right middle lobe is still atelectasis. Less congestive changes. I will repeat another x-ray in the morning. If the patient is unable to open her airways with pulmonary toilet and noninvasive measures then we will have to consider bronchoscopy Continue oxygen, wean for saturation 88-90%. Plan of care was discussed with patient and she is in understanding. Thank you for this consult. I will follow along with you. Admission and Anticipated Discharge Date Admission Date: November 06, 2024 Subjective Patient seen examined morning. Overall she is feeling well the same. She had a little bit of phlegm production yesterday but none today. She is still having chest physiotherapy with the vest and is using the Acapella as instructed. Oxygen requirement is going down slightly. No fevers or chills overnight. Good appetite. Wanting to go home soon as possible. Review of Systems Review of Systems: A 12 point review of systems was obtained in detail. Negative except as noted in HPI. Physical Exam Physical Exam: Physical examination: General: Well-appearing, well-nourished and not in acute distress. HEENT: Normocephalic, atraumatic. Extraocular movements intact. Sclera are nonicteric. No JVD appreciated. Skin: Warm and dry. No rashes appreciated. No jaundice appreciated. Cardiovascular: Heart is a regular rate and rhythm, no murmurs appreciated on my exam. No significant lower extremity edema. Lungs: Coarse breath sounds appreciated bilaterally with wheezing appreciated. Nontachypneic. Resting comfortably on 5 L nasal cannula. Abdomen: Nondistended, nontender to palpation. No masses appreciated. Musculoskeletal: Normal muscle mass and tone. No gross joint deformity abnormalities. No effusions appreciated. Neurologic: Awake and alert, oriented. CN II through XII are grossly intact. Speech is fluent. Nonfocal exam. Psychiatric: Appropriate cooperative during my exam. Results & Data Results & Data Vital Signs (Past 12 Hours) Vital Signs Temp Pulse Pulse Resp BP Pulse Ox O2 Del Method 11/10/24 09:52 Nasal Cannula 11/10/24 07:55 84 18 96 Nasal Cannula 11/10/24 07:50 36.9 C 61 20 143/76 H 94 High Flow Nasal Cannula 11/10/24 05:48 64 11/10/24 02:08 72 16 95 Nasal Cannula 11/10/24 01:57 36.6 C 70 16 131/74 96 Room Air 11/09/24 23:04 36.5 C 78 16 117/76 93 Nasal Cannula O2 Flow Rate 11/10/24 09:52 6 11/10/24 07:55 6 11/10/24 07:50 6 11/10/24 05:48 11/10/24 02:08 6 11/10/24 01:57 6 11/09/24 23:04 6 PG Care Time/CCT Total # of Minutes Spent Total Time Spent with Patient: Total time spent is greater than 50% in coordination of care (as documented) at patient's floor/unit and/or counseling patient: Coding [place] [address] SUB INP/OBS CARE 2/35MIN Patient Type Established History Detailed Exam Detailed Medical Decision Making Moderate Complexity Diagnoses Atelectasis of right lung J98.11 Acute exacerbation of chronic obstructive pulmonary disease (COPD) J44.1 Acute respiratory failure with hypoxia J96.01
[2024-11-10 11:30] VITALS: TEMP 98.1
[2024-11-10 12:20] VITALS: RESP 18
--- NOTE | 2024-11-10 12:34 | Discharge Summary ---
Discharge Summary Date of Service November 10, 2024 Principal Dx & Hospital Course #1 = Principal Diagnosis (1) Acute respiratory failure with hypoxia: Supplemental oxygen per nasal cannula to maintain saturation greater than 90%. Oxygen has been weaned down. 2 step was completed and she will need 4 L with ambulation and 2 L at rest continuously. Case management was provided with a prescription for home oxygen (2) Acute exacerbation of chronic obstructive pulmonary disease (COPD): Treat treated for suspected bronchitis and right lower lobe atelectasis. Treated while hospitalized with parenteral steroids and IV antibiotics. Scheduled nebulizers (3) Acute bronchitis: Intravenous Zosyn and vancomycin were given in the ER and will be continued. Vancomycin has been discontinued since the MRSA nasal swab is negative. Zosyn stopped at discharge (4) Acute on chronic diastolic CHF (congestive heart failure): Suspected. Good diuretic response from intravenous Lasix administered on November 08. She was given another dose of parenteral Lasix on November 09. Monitor intake and output. No overt CHF seen on x-ray completed November 10 (5) Hypertension: Currently stable. Continue current medical management (6) Primary cancer of right lower lobe of lung: This may account for right middle lobe collapse seen on chest CT scan. Recurrence is a possibility considering progression of adenopathy seen in the chest. If the right lower lobe remains atelectatic, she will need bronchoscopy for further evaluation. However, she is adamant about going home today, November 10, and this may need to be done in the near future if the atelectasis persists (7) Atelectasis of right lung: Complete collapse of the right lower lobe is seen on CT scan. This is new. 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 Considerable secretions are also noted in the bronchus leading to the right lower lobe. Pulmonary medicine consultation appreciated. If the right lower lobe remains collapsed, she will need bronchoscopy evaluation to further evaluate the right lower lobe bronchus. Plan The patient is adamant about going home today, November 10. Case management was given a prescription for home oxygen and she will remain on a prednisone tapering dose at the time of discharge. She will follow-up with her PCP and lung specialist as soon as possible. Admission HPI Per Admitting Provider 79-year-old white female with a longstanding smoking history. She has developed a productive cough and worsening shortness of breath for the past several days. She did not denies hemoptysis. She has had some weight gain also but she said she never develops peripheral edema. Chest x-ray reveals evidence of CHF. She has at least bronchitis and may have some underlying pneumonia. She is on supplemental oxygen in the ED and has received Zosyn and vancomycin. Chest CTA reveals right middle lobe collapse and airway secretions consistent with the underlying bronchitis. She is admitted for further evaluation and treatment Discharge Exam General-alert and oriented x3, no fever, no chills HEENT-head atraumatic and normocephalic, pupils equal and reactive to light, extraocular muscles intact Neck-no lymphadenopathy or thyromegaly, trachea midline Chest-diffuse bilateral rhonchi and expiratory wheezes. Faint bibasilar inspiratory rales. No dullness to percussion Cardiac-regular rate and rhythm, normal S1 and S2 Abdomen-normal bowel sounds, no hepatosplenomegaly Extremities-no cyanosis, clubbing, or edema Neuro-cranial nerves II through XII intact, motor and sensory function within normal limits, strength symmetrical, no focal deficits Psych-normal affect, normal mood Discharge Plan Discharge Items Patient Disposition: Home - Home Health Services Reason For Visit: RESPIRATORY FAILURE, BRONCHITIS, EXAC COPD Discharge Diagnosis: Acute hypoxic respiratory failure due to right lower lobe atelectasis, right lower lobe airway obstruction due to secretions, Condition on Discharge: Good Activity: As commented below Activity Comment: Wear oxygen at 2 L/min at rest and 4 L/min with ambulation Non-emergency contact: Primary Care Provider Call non-emergency contact if: your symptoms worsen Follow-up/Referrals: Daniel Myers, [Primary Care Provider] - 11/17/24 1:00 pm Diet: Regular and Heart Healthy Addtl Attending Provider Instructions: Take prednisone 40 mg daily for 5 more days then stop. Wear oxygen 2 L/min at rest and 4 L/min with any ambulation. See your primary care provider and lung specialist as soon as possible Pending Studies at Discharge: No Stand-Alone Forms: My [facility] [place], Smoking Cessation Medications and DC Order Prescriptions: New prednisone 10 mg tablet See Rx Instructions .ROUTE .COMPLEX Qty: 12 0RF Rx Instructions: 10 mg orally 3 times a day for 2 days, then 10 mg twice a day for 2 days, then 10 mg once a day for 2 days, then stop Continued nitroglycerin [Nitrostat] 0.4 mg tablet, sublingual 0.4 mg sublingual ONCE PRN (Reason: chest pain) Qty: 1 3RF furosemide 20 mg tablet 20 mg PO DAILY PRN (Reason: edema) Qty: 60 5RF cholecalciferol (vitamin D3) 50 mcg (2,000 unit) capsule 4,000 unit PO BID levocetirizine 5 mg tablet 5 mg PO DAILY PRN (Reason: allergy symptoms) Qty: 90 1RF Rx Instructions: Take daily for 10 days then PRN metoprolol succinate 25 mg tablet extended release 24 hr 25 mg PO QAM Qty: 90 3RF Rx Instructions: qam spironolactone 25 mg tablet 25 mg PO QAM Qty: 90 3RF rosuvastatin 5 mg tablet 5 mg PO QAM Qty: 90 3RF PreserVision AREDS [id number] Tablet 1 tab PO BID aspirin [Adult Low Dose Aspirin] 81 mg tablet,delayed release (DR/EC) 81 mg PO QAM Rx Instructions: qam Discharge Orders: Discharge Order (Routine); Ordered 11/10/24 Ordered By: Isak Williamson Admission Data Admit Date/Time: 11/06/24 16:44 Attending Provider: Isak Williamson Admit Provider: Isak Williamson Primary Care Provider: Daniel Myers Other Providers: Isak Williamson; Allie Desouza Hospital Stay Data Consultations 11/06/24 16:10 ED Decision to Admit Stat 11/07/24 15:26 Consult Pulmonology Routine Diagnostic Imagining Performed 11/06/24 15:05 CT angio chest PE protocol Stat 11/06/24 15:06 CT head/brain wo con Stat Pending Results Patient Have Any Pending Studies at Discharge: No Discharge Instructions Given to Patient (Per Discharging Provider) Take prednisone 40 mg daily for 5 more days then stop. Wear oxygen 2 L/min at rest and 4 L/min with any ambulation. See your primary care provider and lung specialist as soon as possible Total Time Total Time Spent Total Time Spent (In Minutes): 45 minutes Coding Level of Care Code 53978 INP/OBS DISCH >30 MIN Diagnoses Acute respiratory failure with hypoxia J96.01 Acute exacerbation of chronic obstructive pulmonary disease (COPD) J44.1 Acute bronchitis J20.9 Acute on chronic diastolic CHF (congestive heart failure) I50.33 Primary hypertension I10 Hypertension type: primary hypertension Primary cancer of right lower lobe of lung C34.31 Atelectasis of right lung J98.11
[2024-11-10 13:14] VITALS: O2SAT 94
[2024-11-10 15:09] VITALS: BP 111/58; PULSE 78
--- NOTE | 2024-11-10 16:21 | Electrocardiogram Report ---
Test Reason : Blood Pressure : */* mmHG Vent. Rate : 74 BPM Atrial Rate : 74 BPM P-R Int : 158 ms QRS Dur : 118 ms QT Int : 434 ms P-R-T Axes : 65 -60 117 degrees QTcB Int : 481 ms Normal sinus rhythm Left axis deviation Non-specific intra-ventricular conduction delay Minimal voltage criteria for LVH, may be normal variant ( Colin product ) Prolonged QT Abnormal ECG When compared with ECG of 08-Oct-2023 15:52, T wave inversion no longer evident in Inferior leads T wave inversion less evident in Lateral leads Confirmed by Woo Giron ([id number]) on 11/10/2024 4:21:22 PM Referred By: Confirmed By: Woo Giron
== END 2024-11-10 16:26 | disposition home health service (06) | DRG 189 ==
LOC: SUATTDRO → ED 12:11 → EDINP 19:06 → 2N 22:15